=== PATIENT | female | born 1965 | race Caucasian/White ===

== ENCOUNTER 2017-04-26 04:54 | Emergency (ER) | payer BC, OTHER ==
[2017-04-26] MEDS ORDERED: Sodium Chloride 0.9% 1000 ML 1,000 ML IV SCH (05:15)
--- NOTE | 2017-04-26 05:22 | ERPHSYRPT ---
- History of Present Illness Time Seen by Provider: 04/26/17 05:06 Source: patient Exam Limitations: no limitations Patient Subjective Stated Complaint: Pt C/O left sided facial numbness radiating down the left arm with chest discomfort. Pt describes as feeling her heart is beating out of her chest. Pt rates pain 5/10. Describes as aching pain in left chest non-radiating. Pt sts shortness of breath with pain. Sts diaphoresis and vomiting x 1. Pt states nausea. Pt sts hx of palpitations. Denies prior LA. Denies prior CVA. Sts discomfort woke her up. Sts dizzy spells earlier this week. Triage Nursing Assessment: Pt alert, however drowsy in appearance. Answers questions appropriately. Skin p/w/d, resps non-labroed. SPO2 100% room air. EKG Sinus Rhythm at triage. Physician History: This is a 51-year-old white female with history of palpitations She arrives with complaint of waking up with left sided facial and head numbness and numbness of her left hand symptoms since 3:00 patient has not had movement disorder. States she began having a sensation of numbness on the left side of her face and head she has not had any problems speaking she states so that she also had pain in her anterior chest described as sharpness associated with shortness of breath and nausea. Past medical history includes palpitations, migraines, check gastroesophageal reflux. Past surgical history includes orthopedic surgery, heart catheter, cholecystectomy. Social history patient denies tobacco alcohol or illicit drug use Timing/Duration: today (3 AM) Severity: moderate Modifying Factors: Improves With: nothing Associated Symptoms: nausea, vomiting, shortness of breath, chest pain, other ( paresthesia left side of face and head and left arm), No abdominal pain, No heartburn, No diaphoresis, No cough, No chills, No fever, No headaches, No loss of appetite, No malaise, No rash, No syncope, No seizure, No weakness Allergies/Adverse Reactions: tetracycline [Tetracycline] Allergy (Unknown, Verified 04/26/17 05:04) Home Medications: PANTOPRAZOLE 40 mg Tablet [Protonix 40MG Tablet] 40 mg PO DAILY 03/02/12 [ History] Topiramate 50 mg PO DAILY 03/02/12 [History] Ranolazine [Ranexa] 1,000 mg PO DAILY 04/26/17 [History] Hx Tetanus, Diphtheria Vaccination/Date Given: (unknown) Hx Influenza Vaccination/Date Given: No Hx Pneumococcal Vaccination/Date Given: No Immunizations Up to Date: Yes - Review of Systems Constitutional: No Fever, No Chills Eyes: No Symptoms Ears, Nose, & Throat: No Symptoms Respiratory: No Cough, No Dyspnea Cardiac: Chest Pain, No Edema, No Palpitations, No Syncope, No Orthopnea, No PND Abdominal/Gastrointestinal: Nausea, Vomiting, No Abdominal Pain, No Diarrhea, No Constipation, No Hematemesis, No Hematochezia, No Melena, No Dysphagia, No Appetite Changes Genitourinary Symptoms: No Dysuria Musculoskeletal: No Back Pain, No Neck Pain Skin: No Rash Neurological: Parasthesia, No Dizziness, No Focal Weakness, No Gait Changes, No Headache, No Irritability, No Lethargy, No Paralysis, No Seizure, No Sensory Changes, No Speech Changes, No Tics, No Tremors, No Vertigo Psychological: No Symptoms Endocrine: No Symptoms All Other Systems: Reviewed and Negative - Past Medical History Pertinent Past Medical History: Yes Neurological History: Migraines ENT History: No Pertinent History Cardiac History: Hypertension, Other Respiratory History: No Pertinent History Endocrine Medical History: No Pertinent History Musculoskeletal History: No Pertinent History GI Medical History: GERD, Gallbladder Disease History: No Pertinent History Psycho-Social History: No Pertinent History Female Reproductive Disorders: No Pertinent History Other Medical History: bottom 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 - Past Surgical History Past Surgical History: Yes Neuro Surgical History: No Pertinent History Cardiac: Cardiac Catheterization Respiratory: No Pertinent History Gastrointestinal: Cholecystectomy Genitourinary: No Pertinent History Musculoskeletal: No Pertinent History Female Surgical History: No Pertinent History Other Surgical History: tempal artery biopsy - Social History Smoking Status: Never smoker Exposure to second hand smoke: No Drug Use: none Patient Lives Alone: No - Female History Hx Last Menstrual Period: post-menopausal - Nursing Vital Signs Nursing Vital Signs: Initial Vital Signs Temperature 98.1 F Temperature Source Oral Pulse Rate 75 Respiratory Rate 16 Blood Pressure [] 157/93 Pain Intensity 4 - Physical Exam General Appearance: other (well-developed obese white female some what [place] in a quiet voice,with full range of motion.) Eye Exam: PERRL/EOMI, eyes nml inspection, other (fundi are unremarkable) Ears, Nose, Throat Exam: normal ENT inspection, TMs normal, pharynx normal, moist mucous membranes Neck Exam: normal inspection, non-tender, supple, full range of motion Respiratory Exam: normal breath sounds, lungs clear, No respiratory distress Cardiovascular Exam: regular rate/rhythm, normal heart sounds, normal peripheral pulses Gastrointestinal/Abdomen Exam: soft, normal bowel sounds, No tenderness, No mass Back Exam: normal inspection, normal range of motion, No CVA tenderness, No vertebral tenderness Extremity Exam: normal inspection, normal range of motion, pelvis stable Neurologic Exam: alert, oriented x 3, cooperative, normal mood/affect, nml cerebellar function, nml station & gait, sensation nml, No motor deficits Skin Exam: normal color, warm, dry, No rash Lymphatic Exam: No adenopathy SpO2 Interpretation: normal (100%) SpO2: 100 Oxygen Delivery: Room Air - Course Nursing assessment & vital signs reviewed: Yes EKG Interpreted by Me: RATE (78 bpm), Sinus Rhythm, Other (EKG: Sinus rhythm, 78 bpm, axisS<I/QIII pattern no acute ST or T wave changes essentially normal EKG) - Radiology Exams Chest X-ray Interpretation: Interpreted by me, Negative, No Pneumonia, No Pneumothorax - CT Exams Head CT Interpretation: Tele-radiologist Report (head CT: No evidence of an acute intracral abnormality. 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 Care 04/26/17 05:59 Active IV Insertion STAT Care 04/26/17 05:11 Active CHEST 1 VIEW (PORTABLE) Stat Exams 04/26/17 05:11 Taken HEAD WITHOUT CONTRAST [CT] Stat Exams 04/26/17 05:13 Taken CBC W DIFF Stat Lab 04/26/17 05:30 Completed CMP Stat Lab 04/26/17 05:30 Completed D-DIMER QUANTITATION Stat Lab 04/26/17 05:30 Completed Manual Differential NC Stat Lab 04/26/17 05:30 Completed PROTIME WITH INR Stat Lab 04/26/17 05:30 Completed PTT Stat Lab 04/26/17 05:30 Completed TROPONIN Q3H Lab 04/26/17 05:30 Completed TROPONIN Q3H Lab 04/26/17 08:15 Ordered TROPONIN Q3H Lab 04/26/17 11:15 Ordered TROPONIN Q3H Lab 04/26/17 14:15 Ordered TROPONIN Q3H Lab 04/26/17 17:15 Ordered Medication Summary Generic Name Dose Route Start Last Admin Trade Name Janes PRN Reason Stop Dose Admin Sodium Chloride 1,000 mls @ 50 mls/hr 04/26/17 05:15 04/26/17 05:50 Sodium Chloride 0.9% 1000 Ml IV 05/26/17 05:14 50 mls/hr .Q20H JOHANNE Administration Discontinued Medications Generic Name Dose Route Start Last Admin Trade Name Urbanq PRN Reason Stop Dose Admin Aspirin 162 mg 04/26/17 06:54 04/26/17 06:57 Baby Aspirin 81 Mg Chew PO 04/26/17 06:55 162 mg STAT ONE Administration Lab/Rad Data: Laboratory Result Diagrams 04/26/17 05:30 04/26/17 05:30 Laboratory Results 04/26/17 04/26/17 04/26/17 Range/Units 05:30 05:30 05:30 WBC (4.0-10.5) K/mm3 RBC (4.1-5.4) M/mm3 Hgb (12.0-16.0) gm/dl Hct (35-47) % MCV (78-100) fl MCH (26-32) pg MCHC (32-36) g/dl RDW (11.5-14.0) % Plt Count (150-450) K/mm3 MPV (6-9.5) fl Segmented Neutrophils (36.0-66.0) % Lymphocytes (Manual) (24-44) % Monocytes (Manual) (0.0-12.0) % Eosinophils (Manual) (0.00-3.0) % Differential Comment Platelet Estimate (NORMAL) INR 0.98 (0.8-3.0) APTT 33.2 (25.3-37.0) SECONDS D-Dimer 567 H* (0-500) ng/mL Sodium 141 (136-145) mEq/L Potassium 3.2 L (3.5-5.1) mEq/L Chloride 104 (98-107) mEq/L Carbon Dioxide 25.3 (21-32) mEq/L Anion Gap 15.3 H (5-15) MEQ/L BUN 13 (9-20) mg/dL Creatinine 0.79 (0.55-1.30) mg/dl Estimated GFR > 60 ML/MIN Glucose 91 (70-110) MG/DL Calcium 9.4 (8.5-10.1) mg/dL Total Bilirubin 0.20 (0.2-1.0) mg/dL AST 25 (15-37) U/L ALT 28 (12-78) U/L Alkaline Phosphatase 90 (46-116) U/L Troponin I < 0.017 (0.000-0.056) ng/ml Serum Total Protein 7.8 (6.4-8.2) gm/dL Albumin 3.6 (3.4-5.0) g/dL 04/26/17 Range/Units 05:30 WBC 6.1 (4.0-10.5) K/mm3 RBC 4.40 (4.1-5.4) M/mm3 Hgb 13.4 (12.0-16.0) gm/dl Hct 40.3 (35-47) % MCV 91.6 (78-100) fl MCH 30.5 (26-32) pg MCHC 33.3 (32-36) g/dl RDW 13.2 (11.5-14.0) % Plt Count 262 (150-450) K/mm3 MPV 11.8 H (6-9.5) fl Segmented Neutrophils 58 (36.0-66.0) % Lymphocytes (Manual) 33 (24-44) % Monocytes (Manual) 7 (0.0-12.0) % Eosinophils (Manual) 2 (0.00-3.0) % Differential Comment NORMAL Platelet Estimate NORMAL (NORMAL) INR (0.8-3.0) APTT (25.3-37.0) SECONDS D-Dimer (0-500) ng/mL Sodium (136-145) mEq/L Potassium (3.5-5.1) mEq/L Chloride (98-107) mEq/L Carbon Dioxide (21-32) mEq/L Anion Gap (5-15) MEQ/L BUN (9-20) mg/dL Creatinine (0.55-1.30) mg/dl Estimated GFR ML/MIN Glucose (70-110) MG/DL Calcium (8.5-10.1) mg/dL Total Bilirubin (0.2-1.0) mg/dL AST (15-37) U/L ALT (12-78) U/L Alkaline Phosphatase (46-116) U/L Troponin I (0.000-0.056) ng/ml Serum Total Protein (6.4-8.2) gm/dL Albumin (3.4-5.0) g/dL - Progress Progress: improved Progress Note: 04/26/17 05:18 This is a 51-year-old white female with history of palpitations in the past she arrives with complaints of a paresthesia to the left side of the face left side of the head left arm symptoms since 3:00 associated with pain in her anterior chest which she describes as sharp she states she was short of breath. On physical examination patient speaks in a very slow weak sounding voice I do not see any obvious facial drooping she looks around the room but however when I asked her to open her eyes she opens some partially for me to of do a funduscopic exam she is able to wrinkle or for head show me her teeth stick her tongue out without any problems she moves her head from [id number] without problems Heart is regular rate and rhythm without murmur abdomen soft nontender nondistended positive bowel sounds lungs are clear and equal. Extremities patient when asked to demonstrate what side of her face is she reaches up easily with her left hand and rubs along side of her face and head however when I asked her to do finger to nose she brings up her left arm very slowly until I reminded her that she was just was able to touch her head and that she is able to complete the finger to nose with both hands. There are full range of motion to both feet She has very weak attempted gripping. Pulses are equal symmetrical 2/4 upper and lower extremities. Patient is alert oriented 3 cranial nerves II through XII are intact DTRs symmetrical equal 2 over 4. Very weak effort at movement as described above. Skin patient does appear to be somewhat pale. Will go ahead and obtain CT of the head, CBC CMP EKG troponin PT PTT d-dimer chest x-ray. 04/26/17 05:[address]: No evidence of acute intracranial abnormality, no significant change compared to prior examination. 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 Will have nurse is due NIH stroke scale Will wait on aspirin at this time. 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 I have pulled out a call to [facility] unfortunately their neurologist is not available at this time. I contacted Dr. Lorenzana at [facility] discussed the patient's case with him and he he has excepted the patient for transfer. Will go ahead and give patient aspirin 162 mg orally It is felt that the patient has an inconsistent examination he she does need to have evaluation by a neurologist Will transfer [facility]. - Departure Time of Disposition: 06:56 Departure Disposition: Transfer ([facility] Dr Lorenzana) Clinical Impression: Left arm weakness, parasthesia face, left arm Chest pain Qualifiers: Chest pain type: unspecified Qualified Code(s): R07.9 - Chest pain, unspecified Condition: Fair Critical Care Time: No Referrals: BRIANNA MANNING [Primary Care Provider] -
[2017-04-26 05:40] LABS: Mean Cell Volume 91.6 fl (78-100); Mean Corpuscular Hemoglobin 30.5 pg (26-32); Mean Platelet Volume 11.8 fl (6-9.5); Platelet Count 262 K/mm3 (150-450); Red Cell Distribution Width 13.2 % (11.5-14.0); White Blood Count 6.1 K/mm3 (4.0-10.5)
[2017-04-26] MEDS ORDERED: Sodium Chloride 0.9% 1000 ML 1,000 ML ONE (05:49)
[2017-04-26 05:56] LABS: INR 0.98 (0.8-3.0); PROTIME 11.1 SECONDS (9.95-12.35)
[2017-04-26 05:59] LABS: PTT 33.2 SECONDS (25.3-37.0)
[2017-04-26 06:12] LABS: ALBUMIN 3.6 g/dL (3.4-5.0); ALKALINE PHOSPHATASE 90 U/L (46-116); ANION GAP 15.3 MEQ/L (5-15); BLOOD UREA NITROGEN 13 mg/dL (9-20); CHLORIDE 104 mEq/L (98-107); Carbon Dioxide 25.3 mEq/L (21-32); Glucose 91 MG/DL (70-110); Potassium 3.2 mEq/L (3.5-5.1); SGOT/AST 25 U/L (15-37); SGPT/ALT 28 U/L (12-78); SODIUM 141 mEq/L (136-145); Total Protein 7.8 gm/dL (6.4-8.2)
[2017-04-26 06:37] LABS: Eosinophil 2 % (0.00-3.0); Platelet Estimate NORMAL (NORMAL); Total Cells Counted 100
[2017-04-26] MEDS ORDERED: BABY ASPIRIN 81 MG CHEW PO ONE (06:54)
[2017-04-26] MEDS ORDERED: BABY ASPIRIN 81 MG CHEW ONE (06:57)
[2017-04-26 08:39] VITALS: BP 142/72; PULSE 75
[2017-04-26 09:07] VITALS: O2SAT 94
--- NOTE | 2017-04-26 09:14 | XRAY ---
Indication: Left-sided numbness. Chest pain. Comparison: July 09, 2009. Portable chest again demonstrates normal heart and lungs. Bony thorax intact again with mild degenerative changes.
--- NOTE | 2017-04-26 09:14 | XRAY ---
Indication: Left facial and hand numbness. Multiple contiguous axial images obtained through the head without contrast. Comparison: May 09, 2009. Again normal appearing brain parenchyma, ventricles, and bony calvarium. Visualized paranasal sinuses and mastoid air cells are clear. Impression: Stable normal CT head without contrast exam. Comment: Preliminary interpretation was made by [facility]. No discrepancy. CT DI 65.91
== END 2017-04-26 09:00 | disposition short-term general hospital (02) ==
LOC: ED 04:54
DX: R07.89 Other chest pain (principal); R29.898 Other symptoms and signs involving the musculoskeletal system; G51.0 Bell's palsy; R11.2 Nausea with vomiting, unspecified; R06.02 Shortness of breath
CPT/HCPCS: 36000; 36415; 70450; 71010; 80053; 82962; 84484; 85025; 85379; 85610; 85730; 93041; 96360; 96361; 99285; A9270-GY

== ENCOUNTER 2019-04-14 09:58 | Emergency (ER) | payer BC, OTHER ==
[2019-04-14 10:17] VITALS: BP 136/77; PULSE 78; O2SAT 99
[2019-04-14] MEDS ORDERED: TYLENOL 325 MG PO STA (10:40)
--- NOTE | 2019-04-14 10:47 | ERPHSYRPT ---
- History of Present Illness Time Seen by Provider: 04/14/19 10:15 Source: patient Patient Subjective Stated Complaint: Pt was working at [employer] and a stack of plastic lids fell on top of her head causing dizziness, headache, nauseous, denies vomiting, denies losing consciousness, rates pain 6/10 Triage Nursing Assessment: Pt walked into the ER with an unstable gait, no difficulties with strength, PERRL, vitals wnl, no bump felt on head, no bleeding , pulses normal Physician History: PATIENT WITH A HISTORY OF MIGRAINE HEADACHES WORKING AT [employer], PULLED 20-30 POUND PLASTIC LIDS ONTO HEAD AND FEELS DIZZY, HAS HEADACHE AND NECK SORENESS. ADMITS TO FEELING LIKE PASSING OUT. DENIES BLURRED VISION, NUMBNESS, TINGLING OR WEAKNESS IN EXTREMITIES. Occurred: just prior to arrival Severity: moderate Head Injury Location: frontal Method of Injury: direct blow Loss of Consciousness: dazed Associated Symptoms: headaches Allergies/Adverse Reactions: tetracycline [Tetracycline] Allergy (Unknown, Verified 04/14/19 10:17) Home Medications: PANTOPRAZOLE 40 mg Tablet [Protonix 40MG Tablet] 40 mg PO DAILY 03/02/12 [ History] Topiramate 50 mg PO DAILY 03/02/12 [History] Pravastatin Sodium [Pravachol] 20 mg PO DAILY 04/14/19 [History] Hx Tetanus, Diphtheria Vaccination/Date Given: (unknown) Hx Influenza Vaccination/Date Given: No Hx Pneumococcal Vaccination/Date Given: No - Review of Systems Constitutional: No Fever, No Chills Eyes: No Symptoms Ears, Nose, & Throat: No Symptoms Respiratory: No Symptoms, No Cough, No Dyspnea Cardiac: No Symptoms, No Chest Pain, No Edema, No Syncope Abdominal/Gastrointestinal: No Symptoms, No Abdominal Pain, No Nausea, No Vomiting, No Diarrhea Genitourinary Symptoms: No Symptoms, No Dysuria Musculoskeletal: No Symptoms, No Back Pain, No Neck Pain Skin: No Rash Neurological: Headache, No Dizziness, No Focal Weakness, No Sensory Changes Psychological: No Symptoms Endocrine: No Symptoms All Other Systems: Reviewed and Negative - Past Medical History Pertinent Past Medical History: Yes Neurological History: Migraines ENT History: No Pertinent History Cardiac History: Hypertension, Other Respiratory History: No Pertinent History Endocrine Medical History: No Pertinent History Musculoskeletal History: No Pertinent History GI Medical History: GERD, Gallbladder Disease History: No Pertinent History Psycho-Social History: No Pertinent History Female Reproductive Disorders: No Pertinent History Other Medical History: bottom 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 - Past Surgical History Past Surgical History: Yes Neuro Surgical History: No Pertinent History Cardiac: Cardiac Catheterization Respiratory: No Pertinent History Gastrointestinal: Cholecystectomy Genitourinary: No Pertinent History Musculoskeletal: No Pertinent History Female Surgical History: No Pertinent History Other Surgical History: tempal artery biopsy - Social History Smoking Status: Never smoker Exposure to second hand smoke: Yes Drug Use: none Patient Lives Alone: No - Female History Hx Now: No - Nursing Vital Signs Nursing Vital Signs: Initial Vital Signs Temperature 97.8 F 04/14/19 10:07 Pulse Rate 78 04/14/19 10:07 Blood Pressure 136/77 04/14/19 10:07 O2 Sat by Pulse Oximetry 99 04/14/19 10:07 Pain Scale Pain Intensity 6 - [place] Coma Score Best Eye Response (Lenard): (4) open spontaneously Best Verbal Response (Lenard): (5) oriented Best Motor Response (Lenard): (6) obeys commands [place]ard Total: 15 - Physical Exam General Appearance: no apparent distress, alert Head Injury: tenderness (OVER MID ANTERIOR SCALP, NO SWELLING, CREPITUS OR ECCHYMOSIS) Eye Exam: bilateral eye: PERRL, EOMI ENT Exam: airway nml Neck Exam: supple, full range of motion, normal inspection, other (TENDERNESS OVER ) Cardiovascular/Respiratory Exam: chest non-tender, normal breath sounds, regular rate/rhythm Gastrointestinal/Abdominal Exam: soft, non tender, no distention Back Exam: normal inspection, No vertebral tenderness Extremity Exam: non-tender, normal range of motion, normal inspection Mental Status Exam: alert, oriented x 3, 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: normal hearing, normal speech, PERRL Coordination/Gait Exam: normal finger to nose, normal gait Motor/Sensory Exam: no motor deficit, no sensory deficit, CN II-XII intact DTR Exam: bicep (R): 2+, bicep (L): 2+, tricep (R): 2+, tricep (L): 2+, knee (R) : 2+, knee (L): 2+, ankle (R): 2+, ankle (L): 2+ Skin Exam: normal color, warm, dry, No rash SpO2 Interpretation: normal SpO2: 99 - CT Exams Head CT Interpretation: Discussed w/radiologist, No/Intracranial Hemorrhag Cervical Spine CT Interpretation: Discussed w/radiologist, No Fracture, No Subluxation Ordered Tests: Active Orders 24 hr Category Date Time Status CERVICAL SPINE WO CONTRAST [CT] Stat Exams 04/14/19 10:35 Completed HEAD WITHOUT CONTRAST [CT] Stat Exams 04/14/19 10:33 Completed Medication Summary Discontinued Medications Generic Name Dose Route Start Last Admin Trade Name Urbanq PRN Reason Stop Dose Admin Acetaminophen 650 mg 04/14/19 10:40 04/14/19 11:03 Tylenol 325 Mg PO 04/14/19 10:41 650 mg STAT STA Administration Acetaminophen Confirm 04/14/19 10:49 Tylenol 325 Mg Administered 04/14/19 10:50 Dose 650 mg .ROUTE .[employer]MED ONE - Progress Counseled pt/family regarding: diagnosis, need for follow-up, rad results - Departure Departure Disposition: Home Clinical Impression: SCALP CONTUSION, CONCUSSION Condition: Stable Critical Care Time: No Referrals: NO PHAM MD [Primary Care Provider] - Additional Instructions: REDUCE ACTIVITY LEVEL. RETURN TO WORK ON 04/16/2019. FOLLOW HEAD INJURY INSTRUCTIONS FOR 24 HOURS. TYLENOL EVERY 4 HOURS FOR PAIN NEEDED.
[2019-04-14] MEDS ORDERED: TYLENOL 325 MG ONE (10:49)
--- NOTE | 2019-04-14 11:12 | XRAY ---
Indication: Pain following injury. Multiple contiguous axial images obtained through the head without contrast. Comparison: April 26, 2017. Again normal appearing brain parenchyma, ventricles, and bony calvarium. Visualized paranasal sinuses and mastoid air cells are clear. Impression: Stable normal CT head without contrast exam. CT DI 68.65
--- NOTE | 2019-04-14 11:14 | XRAY ---
Indication: Neck pain following injury. Multiple contiguous axial images obtained through the cervical spine. Sagittal and coronal reformatted images obtained. Comparison: None Axial images negative for acute fracture, suspicious bony lesions, or spinal canal stenosis. Mild C6-C7 and lesser degree C5-C6 degenerative endplate spurring. Mild left C2-C3 degenerative facet hypertrophy. Sagittal and coronal reformatted images demonstrates cervical lordotic straightening, positional versus paraspinal spasm. Minimal C6-C7 disc space narrowing. No acute compression fracture, subluxation, or jumped facet. Normal appearing craniocervical junction. Visualized noncontrasted soft tissues including lung apices unremarkable. Impression: 1. Cervical lordotic straightening, positional versus paraspinal spasm. Negative for acute fracture/subluxation. 2. Minimal/mild multilevel degenerative changes. CT DI 70.95
== END 2019-04-14 11:33 | disposition home or self-care (01) ==
LOC: ED 09:58
DX: S00.03XA Contusion of scalp, initial encounter (principal); S06.0X9A Concussion with loss of consciousness of unspecified duration, initial encounter; R42 Dizziness and giddiness; W20.8XXA Other cause of strike by thrown, projected or falling object, initial encounter; Y93.89 Activity, other specified; Y92.29 Other specified public building as the place of occurrence of the external cause; Y99.0 Civilian activity done for income or pay; M54.2 Cervicalgia; R51 Headache
CPT/HCPCS: 70450; 72125; 99283; A9270-GY

== ENCOUNTER 2019-09-27 06:15 | Day surgery (SDC) | payer BC ==
[2019-09-27] MEDS ORDERED: Lactated Ringers 1,000 ML IV SCH (06:30)
[2019-09-27] MEDS ORDERED: DIPRIVAN 200 MG/20 ML IV ONE ×2 (08:01→08:15)
[2019-09-27] MEDS ORDERED: SUBLIMAZE 100 MCG/2 ML ONE (08:17)
[2019-09-27] MEDS ORDERED: Lactated Ringers 1,000 ML IV ONE (08:25)
--- NOTE | 2019-09-27 08:51 | OP ---
SURGERY DATE/TIME: 09/27/2019 0800 PREOPERATIVE DIAGNOSIS: Screening colonoscopy. POSTOPERATIVE DIAGNOSES: 1) Normal colon. 2) Sigmoid diverticulosis. PROCEDURE: Colonoscopy. SURGEON: Blue Garner M.D. ANESTHESIA: MAC by Clarence Geronimo CRNA. ESTIMATED BLOOD LOSS: None. SPECIMENS: None. DESCRIPTION OF PROCEDURE: After informed written consent was obtained, the patient was taken to the endoscopy suite. She underwent monitored anesthesia after she was placed in left lateral decubitus position. A digital rectal exam showed normal sphincter tone and no internal lesions. The scope was inserted into the rectum and sequentially the entire colonic mucosa was traversed. The level of cecum was reached and verified with direct visualization of ileocecal valve. Upon withdrawal careful mucosal inspection revealed no gross abnormalities other than again scattered diverticulosis mostly in the sigmoid region. Prior to withdrawal retroflexion was performed and showed no internal lesions. The scope was removed and the patient was transferred to the recovery room in good condition.
[2019-09-27 09:11] VITALS: O2SAT 98
[2019-09-27 09:28] VITALS: BP 131/63; PULSE 79
== END 2019-09-27 09:35 | disposition home or self-care (01) ==
LOC: SDC 06:15
PROVIDERS: ATTEND Family Medicine
DX: Z12.11 Encounter for screening for malignant neoplasm of colon (principal); K57.30 Diverticulosis of large intestine without perforation or abscess without bleeding
CPT/HCPCS: J2704; J3010

== ENCOUNTER 2020-10-14 20:48 | Emergency (ER) | payer OTHER ==
[2020-10-14] MEDS ORDERED: Nitrostat 0.4 MG Tablet SL PRN (21:03)
[2020-10-14] MEDS ORDERED: Nitrostat 0.4 MG (ED) SL ONE (21:04)
[2020-10-14 21:36] LABS: Absolute Neutrophil Ct (ANC) 2.64 (1.4-6.9); BASOPHIL % 0.5 % (0.0-0.4); Basophil (Absolute #) 0.03 (0-0.4); Eosinophil % 3.9 % (0.00-5.0); Eosinophil (Absolute #) 0.24 (0-0.5); Hematocrit 40.7 % (35-47); Lymphocytes % 37.3 % (24.0-44.0); Mean Cell Volume 94.4 fl (78-100); Mean Corpuscular Hemoglobin 30.2 pg (26-32); Mean Corpuscular Hgb Concent. 31.9 g/dl (32-36); Mean Platelet Volume 11.9 fl (7.5-11.0); Monocyte (Absolute #) 0.95 (0.0-1.3); Monocytes % 15.4 % (0.0-12.0); Neutrophil % 42.9 % (36.0-66.0); Platelet Count 288 K/mm3 (150-450); Red Blood Count 4.31 M/mm3 (4.1-5.4); Red Cell Distribution Width 13.5 % (11.5-14.0); White Blood Count 6.2 K/mm3 (4.0-10.5)
[2020-10-14 21:48] LABS: ALBUMIN 4.2 g/dL (3.5-5.0); ALKALINE PHOSPHATASE 89 U/L (38-126); ANION GAP 10.5 MEQ/L (5-15); BLOOD UREA NITROGEN 17 mg/dL (7-17); CHLORIDE 107 mmol/L (98-107); Calcium 9.3 mg/dL (8.4-10.2); Carbon Dioxide 25 mmol/L (22-30); Creatinine 1 0.73 mg/dL (0.52-1.04); EST GLOMERULAR FILTRATION RATE > 60.0 ML/MIN; Glucose 108 mg/dL (74-106); MAGNESIUM 2.5 mg/dL (1.6-2.3); Potassium 3.8 mmol/L (3.5-5.1); SGOT/AST 37 U/L (14-36); SGPT/ALT 30 U/L (0-35); SODIUM 138 mmol/L (137-145); Total Protein 7.9 g/dL (6.3-8.2)
--- NOTE | 2020-10-14 21:48 | ERPHSYRPT ---
- History of Present Illness Historian: patient Exam Limitations: no limitations Patient Subjective Stated Complaint: pt states that she was at [facility] when she began to have chest pain, pt states that pain in her chest, left side of her neck, and left arm, pt states that she had pain and numbness yesterday in her left neck and head Triage Nursing Assessment: pt came into the er; pt is axo x4; c/o chest pain; pt states that pain radiates from chest to left side of neck and left shoulder; pt states 6/10 pain to chest; pt states pain in chest is sharp; pt states that she took 4 81 mg aspirin prior to arrival; apical tone clear; radial pulses is strong; strong pedal pulses; no edema present; clear lung sounds in all lobes; hypoactive bowel sounds; hx of HTN and high cholesterol; hypertensive Physician History: 55 yo wf w L sternal chest pain w radiation to LUE beginning at 16:00. Pain 8/10 at worst and 2/10 after 1SL NTG. Pain is described as sharp-dull. She has been nauseated but denies vomiting /dyspnea/diaphoresis. She took 4 81mg ASA before arrival. Pt states that she has had a cardiac cath x2 in the remote past wo sig disease. She has hypertension/hyperlipidemia but denies tobacco use/DM. Timing/Duration: other (16:00) Activities at Onset: rest Quality: dullness, sharpness Location: substernal Chest Pain Radiation: arm Severity of Pain-Max: severe Severity of Pain-Current: moderate Modifying Factors: Improves With: nitroglycerin Associated Symptoms: nausea, No vomiting, No palpitations, No heartburn, No abdominal pain, No shortness of breath, No cough, No hurts to breathe, No diaphoresis, No chills, No fever, No fatigue, No weakness, No swelling/lump in chest, No syncope, No rash, No headache, No dizziness, No edema, No back pain Prior Chest Pain/Cardiac Workup: cardiac cath Nitro Today/Relief: no nitro taken today Aspirin Treatment Today: 81 mg x 4 Allergies/Adverse Reactions: tetracycline [Tetracycline] Allergy (Mild, Verified 10/14/20 20:50) Itching Home Medications: PANTOPRAZOLE 40 mg Tablet [Protonix 40MG Tablet] 40 mg PO DAILY 03/02/12 [History] Pravastatin Sodium [Pravachol] 20 mg PO DAILY 04/14/19 [History] Aspirin EC 81 mg [Ecotrin 81 mg] 1 tab PO DAILY 09/25/19 [History] Lisinopril 5 mg [Zestril 5 MG] 1 tab PO DAILY 09/25/19 [History] Albuterol Sulfate [Proair Hfa] 8.5 gm IH Q4H PRN 10/14/20 [History] Hx Tetanus, Diphtheria Vaccination/Date Given: Yes Hx Influenza Vaccination/Date Given: No Hx Pneumococcal Vaccination/Date Given: No Travel Risk - International Travel Have you traveled outside of the country in past 3 weeks: No - Coronavirus Screening Are you exhibiting any of the following symptoms?: No Close contact with a COVID-19 positive Pt in past 14-21 Days: No - Review of Systems Constitutional: No Symptoms Eyes: No Symptoms Ears, Nose, & Throat: No Symptoms Respiratory: No Symptoms Cardiac: Chest Pain Abdominal/Gastrointestinal: No Symptoms, Nausea Genitourinary Symptoms: No Symptoms Musculoskeletal: No Symptoms Skin: No Symptoms Neurological: No Symptoms Psychological: No Symptoms Endocrine: No Symptoms Hematologic/Lymphatic: No Symptoms Immunological/Allergic: No Symptoms - Past Medical History Pertinent Past Medical History: Yes Neurological History: No Pertinent History ENT History: No Pertinent History Cardiac History: High Cholesterol, Hypertension, Other Respiratory History: No Pertinent History Endocrine Medical History: No Pertinent History Musculoskeletal History: No Pertinent History GI Medical History: GERD, Other History: No Pertinent History Psycho-Social History: No Pertinent History Female Reproductive Disorders: No Pertinent History Other Medical History: Heart palpitations, liver problems, uses inhalers - Past Surgical History Past Surgical History: Yes Neuro Surgical History: No Pertinent History Cardiac: No Pertinent History Respiratory: No Pertinent History Gastrointestinal: Cholecystectomy Genitourinary: No Pertinent History Musculoskeletal: No Pertinent History Female Surgical History: No Pertinent History Other Surgical History: tempal artery biopsy - Social History Smoking Status: Never smoker Exposure to second hand smoke: No Drug Use: none Patient Lives Alone: Yes Significant Family History: no pertinent family hx - Nursing Vital Signs Nursing Vital Signs: Initial Vital Signs Temperature 98.7 F 10/14/20 20:52 Pulse Rate 84 10/14/20 20:52 Respiratory Rate 14 10/14/20 20:52 Blood Pressure 154/91 10/14/20 20:52 O2 Sat by Pulse Oximetry 100 10/14/20 20:52 Pain Scale Pain Intensity 0 - Physical Exam General Appearance: no apparent distress Eye Exam: PERRL/EOMI, eyes nml inspection Ears, Nose, Throat Exam: normal ENT inspection, TMs normal, pharynx normal, moist mucous membranes, tonsillar exudate Neck Exam: normal inspection, non-tender, supple, No meningismus, No mass, No Brudzinski, No Kernig's, No carotid bruit Respiratory Exam: normal breath sounds, lungs clear, airway intact, No respiratory distress Cardiovascular Exam: regular rate/rhythm, normal heart sounds, normal peripheral pulses, capillary refill <2 sec, No murmur Gastrointestinal/Abdomen Exam: soft, normal bowel sounds, No tenderness Back Exam: normal inspection, normal range of motion, No CVA tenderness Extremity Exam: normal inspection, normal range of motion Neurologic Exam: alert, oriented x 3, cooperative, physical sciences professor II-XII nml as tested, normal mood/affect, nml cerebellar function, nml station & gait, sensation nml, No motor deficits, No sensory deficit Skin Exam: normal color, warm, dry, No rash Lymphatic Exam: No adenopathy SpO2 Interpretation: normal SpO2: 98 O2 Delivery: Room Air - Course Nursing assessment & vital signs reviewed: Yes EKG Interpreted by Me: RATE (NSR/R91/low voltage-obese/normal QT-QTc/No acute ST-Twave changes) - Radiology Exams Chest X-ray Interpretation: Interpreted by me (Nothing acute) Ordered Tests: Active Orders 24 hr Category Date Time Status Wool Sacker STAT Care 10/14/20 21:02 Completed EKG-ER Only STAT Care 10/14/20 21:02 Completed IV Insertion STAT Care 10/14/20 21:02 Completed CHEST 1 VIEW (PORTABLE) Stat Exams 10/14/20 21:02 Taken CBC W DIFF Stat Lab 10/14/20 21:30 Completed CMP Stat Lab 10/14/20 21:30 Completed MAGNESIUM Stat Lab 10/14/20 21:30 Completed TROPONIN Q3H Lab 10/14/20 21:30 Completed TROPONIN Q3H Lab 10/15/20 00:01 Completed Medication Summary Discontinued Medications Generic Name Dose Route Start Last Admin Trade Name Freq PRN Reason Stop Dose Admin Nitroglycerin 0.4 mg 10/14/20 21:03 10/14/20 21:05 Nitrostat 0.4 Mg Tablet SL 11/13/20 21:02 0.4 mg Q5MIN PRN MR X 3 PRN Administration CHEST PAIN Nitroglycerin Confirm 10/14/20 21:04 Nitrostat 0.4 Mg (Ed) Administered 10/14/20 21:05 Dose 0.4 mg SL .STK-MED ONE Lab/Rad Data: Laboratory Result Diagrams 10/14/20 21:30 10/14/20 21:30 Laboratory Results 10/15/20 10/14/20 10/14/20 Range/Units 00:01 21:30 21:30 WBC (4.0-10.5) K/mm3 RBC (4.1-5.4) M/mm3 Hgb (12.0-16.0) gm/dl Hct (35-47) % MCV (78-100) fl MCH (26-32) pg MCHC (32-36) g/dl RDW (11.5-14.0) % Plt Count (150-450) K/mm3 MPV (7.5-11.0) fl Gran % (36.0-66.0) % Eos # (Auto) (0-0.5) Absolute Lymphs (auto) (1.0-4.6) Absolute Monos (auto) (0.0-1.3) Lymphocytes % (24.0-44.0) % Monocytes % (0.0-12.0) % Eosinophils % (0.00-5.0) % Basophils % (0.0-0.4) % Absolute Granulocytes (1.4-6.9) Basophils # (0-0.4) Sodium 138 (137-145) mmol/L Potassium 3.8 (3.5-5.1) mmol/L Chloride 107 (98-107) mmol/L Carbon Dioxide 25 (22-30) mmol/L Anion Gap 10.5 (5-15) MEQ/L BUN 17 (7-17) mg/dL Creatinine 0.73 (0.52-1.04) mg/dL Estimated GFR > 60.0 ML/MIN Glucose 108 H (74-106) mg/dL Calcium 9.3 (8.4-10.2) mg/dL Magnesium 2.5 H (1.6-2.3) mg/dL Total Bilirubin 0.30 (0.2-1.3) mg/dL AST 37 H (14-36) U/L ALT 30 (0-35) U/L Alkaline Phosphatase 89 (38-126) U/L Troponin I < 0.012 < 0.012 (0.000-0.034) ng/mL Serum Total Protein 7.9 (6.3-8.2) g/dL Albumin 4.2 (3.5-5.0) g/dL 10/14/20 Range/Units 21:30 WBC 6.2 (4.0-10.5) K/mm3 RBC 4.31 (4.1-5.4) M/mm3 Hgb 13.0 (12.0-16.0) gm/dl Hct 40.7 (35-47) % MCV 94.4 (78-100) fl MCH 30.2 (26-32) pg MCHC 31.9 L (32-36) g/dl RDW 13.5 (11.5-14.0) % Plt Count 288 (150-450) K/mm3 MPV 11.9 H (7.5-11.0) fl Gran % 42.9 (36.0-66.0) % Eos # (Auto) 0.24 (0-0.5) Absolute Lymphs (auto) 2.30 (1.0-4.6) Absolute Monos (auto) 0.95 (0.0-1.3) Lymphocytes % 37.3 (24.0-44.0) % Monocytes % 15.4 H (0.0-12.0) % Eosinophils % 3.9 (0.00-5.0) % Basophils % 0.5 (0.0-0.4) % Absolute Granulocytes 2.64 (1.4-6.9) Basophils # 0.03 (0-0.4) Sodium (137-145) mmol/L Potassium (3.5-5.1) mmol/L Chloride (98-107) mmol/L Carbon Dioxide (22-30) mmol/L Anion Gap (5-15) MEQ/L BUN (7-17) mg/dL Creatinine (0.52-1.04) mg/dL Estimated GFR ML/MIN Glucose (74-106) mg/dL Calcium (8.4-10.2) mg/dL Magnesium (1.6-2.3) mg/dL Total Bilirubin (0.2-1.3) mg/dL AST (14-36) U/L ALT (0-35) U/L Alkaline Phosphatase (38-126) U/L Troponin I (0.000-0.034) ng/mL Serum Total Protein (6.3-8.2) g/dL Albumin (3.5-5.0) g/dL - Progress Progress: improved Air Movement: good Progress Note: 10/15/20 00:36 Pt's pain improved w 1SL NTG to a very minimal level. 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 Counseled pt/family regarding: lab results, diagnosis, need for follow-up, rad results - Departure Departure Disposition: Home Clinical Impression: Chest pain Condition: Stable Critical Care Time: No Referrals: NO PHAM MD [Primary Care Provider] - Instructions: Chest Pain (DC) Additional Instructions: Follow up with your family MD in AM Return to ER for increasing chest pain or shortness of breath
[2020-10-15 00:45] VITALS: BP 132/56; PULSE 64
[2020-10-15 01:17] VITALS: O2SAT 98
--- NOTE | 2020-10-15 08:56 | XRAY ---
Indication: Chest pain. Comparison: April 26, 2017. Portable chest again demonstrates normal heart and lungs. Bony thorax intact again with mild degenerative changes. No new/acute findings.
== END 2020-10-15 00:58 | disposition home or self-care (01) ==
LOC: ED 20:48
DX: R07.9 Chest pain, unspecified (principal); I10 Essential (primary) hypertension; E78.5 Hyperlipidemia, unspecified; Z79.899 Other long term (current) drug therapy
CPT/HCPCS: 36000; 36415; 71045; 80053; 83735; 84484; 85025; 93005; 93041; 99284; A9270-GY

== ENCOUNTER 2021-03-14 16:48 | Emergency (ER) | payer OTHER ==
[2021-03-14 17:45] LABS: Absolute Neutrophil Ct (ANC) 3.16 (1.4-6.9); BASOPHIL % 0.8 % (0.0-0.4); Basophil (Absolute #) 0.05 (0-0.4); Eosinophil % 2.9 % (0.00-5.0); Eosinophil (Absolute #) 0.18 (0-0.5); Hematocrit 40.8 % (35-47); Lymphocyte (Absolute #) 2.06 (1.0-4.6); Mean Cell Volume 94.4 fl (78-100); Mean Corpuscular Hemoglobin 30.1 pg (26-32); Mean Corpuscular Hgb Concent. 31.9 g/dl (32-36); Mean Platelet Volume 12.1 fl (7.5-11.0); Monocyte (Absolute #) 0.79 (0.0-1.3); Monocytes % 12.7 % (0.0-12.0); Neutrophil % 50.6 % (36.0-66.0); Platelet Count 279 K/mm3 (150-450); Red Blood Count 4.32 M/mm3 (4.1-5.4); Red Cell Distribution Width 14.1 % (11.5-14.0); White Blood Count 6.2 K/mm3 (4.0-10.5)
[2021-03-14 17:57] LABS: ALBUMIN 4.1 g/dL (3.5-5.0); ALKALINE PHOSPHATASE 98 U/L (38-126); ANION GAP 12.1 MEQ/L (5-15); BLOOD UREA NITROGEN 18 mg/dL (7-17); CHLORIDE 108 mmol/L (98-107); Carbon Dioxide 23 mmol/L (22-30); Creatinine 1 0.87 mg/dL (0.52-1.04); EST GLOMERULAR FILTRATION RATE > 60.0 ML/MIN; Glucose 94 mg/dL (74-106); SGOT/AST 39 U/L (14-36); SGPT/ALT 28 U/L (0-35); SODIUM 139 mmol/L (137-145); Total Protein 7.2 g/dL (6.3-8.2)
[2021-03-14] MEDS ORDERED: Reglan 10 MG/2 ML IV ONE (17:59)
[2021-03-14] MEDS ORDERED: Sodium Chloride 0.9% 1000 ML 1,000 ML IV STA (17:59)
[2021-03-14] MEDS ORDERED: BENADRYL 50 MG/ML IV ONE (17:59)
[2021-03-14 18:01] VITALS: O2SAT 98
[2021-03-14] MEDS ORDERED: Sodium Chloride 0.9% 1000 ML 1,000 ML ONE (18:04)
[2021-03-14] MEDS ORDERED: BENADRYL 50 MG/ML ONE (18:04)
[2021-03-14] MEDS ORDERED: Reglan 10 MG/2 ML ONE (18:04)
[2021-03-14] MEDS ORDERED: TORAdol 30 mg Injection IV ONE (20:00)
--- NOTE | 2021-03-14 20:11 | ERPHSYRPT ---
- History of Present Illness Time Seen by Provider: 03/14/21 17:05 Source: patient Exam Limitations: no limitations Patient Subjective Stated Complaint: Pt states "I was fine when I went to bed last night and when I woke up this morning at 8 am the left side of my face was numb and my left shoulder was numb." Triage Nursing Assessment: Pt presented alert and oriented X 3, skin pwd Pt ambulates with an upright steady gait, able to speak in clear full sentences. pt in no apparent respiratory distress. pt resting comfortably on the bed. Physician History: 55 years old female with a history of hypertension, hyperlipidemia, GERD, complex migraine went to bed normal and woke up this morning with right facial and right upper shoulder numbness with right-sided headache moderate intensity, sharp in nature without any significant aggravating or relieving factors. Patient reports not having any difficulty speech or visual disturbance. Denies any associated nausea or vomiting. Denies any focal weakness or difficulty ambulation. Reports having similar symptoms couple of years ago and was diagnosed with complex migraine. Denies any fever chills movements of neck. Timing/Duration: today, sudden Quality: sharpness Head Pain Location: parietal Severity of Pain-Max: moderate Severity of Pain-Current: moderate Recent Head Trauma: no recent headache/trauma Associated Symptoms: speech problems, No confusion, No fatigue, No facial pain, No fever/chills, No light-headedness, No loss of consciousness, No nausea/vomiting, No nasal congestion, No nasal drainage, No neck pain, No numbness in legs/feet, No rash, No sweating, No scotoma, No seizures, No sinus infection, No sensitive to light, No stiff neck, No trouble walking, No vision changes, No visual disturbance Previous symptoms: same symptoms as today Allergies/Adverse Reactions: mushroom Allergy (Severe, Verified 03/14/21 17:03) throat swelling tetracycline [Tetracycline] Allergy (Mild, Verified 10/14/20 20:50) Itching Home Medications: PANTOPRAZOLE 40 mg Tablet [Protonix 40MG Tablet] 40 mg PO DAILY 03/02/12 [History] Pravastatin Sodium [Pravachol] 20 mg PO DAILY 04/14/19 [History] Aspirin EC 81 mg [Ecotrin 81 mg] 1 tab PO DAILY 09/25/19 [History] Lisinopril 5 mg [Zestril 5 MG] 1 tab PO DAILY 09/25/19 [History] Albuterol Sulfate [Proair Hfa] 8.5 gm IH Q4H PRN 10/14/20 [History] Metoprolol Succinate 50 mg [Toprol Xl 50 MG] 50 mg PO DAILY 03/14/21 [History] Topiramate [Topamax] 50 mg PO HS 03/14/21 [History] Hx Tetanus, Diphtheria Vaccination/Date Given: No Hx Influenza Vaccination/Date Given: No Hx Pneumococcal Vaccination/Date Given: No Immunizations Up to Date: Yes Travel Risk - International Travel Have you traveled outside of the country in past 3 weeks: No - Coronavirus Screening Are you exhibiting any of the following symptoms?: No Close contact with a COVID-19 positive Pt in past 14-21 Days: No - Vaccine Status Have you recieved a Covid-19 vaccination: Yes Fibre Technologist: Moderna - Vaccination Dates Date of 2cond Vaccination (if applicable): 02/22/2021 - Review of Systems Constitutional: No Symptoms Eyes: No Symptoms Ears, Nose, & Throat: No Symptoms Respiratory: No Symptoms Cardiac: No Symptoms Abdominal/Gastrointestinal: No Symptoms Genitourinary Symptoms: No Symptoms Musculoskeletal: No Symptoms Skin: No Symptoms Neurological: Headache, Sensory Changes Psychological: No Symptoms Endocrine: No Symptoms Hematologic/Lymphatic: No Symptoms Immunological/Allergic: No Symptoms - Past Medical History Pertinent Past Medical History: Yes Neurological History: Migraines ENT History: No Pertinent History Cardiac History: Hypertension Respiratory History: Other Endocrine Medical History: Other Musculoskeletal History: Osteoarthritis GI Medical History: GERD, Other History: No Pertinent History Psycho-Social History: No Pertinent History Female Reproductive Disorders: No Pertinent History Other Medical History: Fatty liver, proair inhaler - Past Surgical History Past Surgical History: Yes Neuro Surgical History: No Pertinent History Cardiac: No Pertinent History Respiratory: No Pertinent History Gastrointestinal: Cholecystectomy Genitourinary: No Pertinent History Musculoskeletal: No Pertinent History Female Surgical History: No Pertinent History Other Surgical History: tempal artery biopsy - Social History Smoking Status: Never smoker Exposure to second hand smoke: No Drug Use: none Patient Lives Alone: Yes Significant Family History: no pertinent family hx - Female History Hx Now: No - Nursing Vital Signs Nursing Vital Signs: Initial Vital Signs Temperature 97.8 F 03/14/21 16:52 Pulse Rate 87 03/14/21 16:52 Respiratory Rate 20 03/14/21 16:52 Blood Pressure 139/68 03/14/21 16:52 O2 Sat by Pulse Oximetry 99 03/14/21 16:52 Pain Scale Pain Intensity 0 - Physical Exam General Appearance: no apparent distress, alert Eye Exam: PERRL/EOMI, eyes nml inspection Ears, Nose, Throat Exam: normal ENT inspection, TMs normal, pharynx normal Neck Exam: normal inspection, non-tender, supple, full range of motion, No meningismus Respiratory Exam: normal breath sounds, lungs clear Cardiovascular Exam: regular rate/rhythm, normal heart sounds Gastrointestinal/Abdominal Exam: soft, normal bowel sounds, No tenderness Back Exam: normal inspection, normal range of motion Extremity Exam: normal inspection, normal range of motion, pelvis stable Mental Status Exam: alert, oriented x 3, cooperative stunt woman Exam: normal hearing, normal speech, PERRL, No abnormal eye position, No facial asymmetry, No facial weakness Coordination/Gait Exam: normal finger to nose, normal gait, normal cerebellar function, negative Romberg's sign Motor/Sensory Exam: no motor deficit, negative Babinski's sign, No no sensory deficit (Right facial decreased sensation of fine touch), No pronator drift (R), No pronator drift (L) DTR Exam: bicep (R): 2+, bicep (L): 2+, tricep (R): 2+, tricep (L): 2+, knee (R): 2+, knee (L): 2+ Skin Exam: normal color SpO2 Interpretation: normal SpO2: 98 O2 Delivery: Room Air - Course EKG Interpreted by Me: RATE (66), Sinus Rhythm, NORMAL AXIS, NORMAL INTERVALS, NORMAL QRS Ordered Tests: Active Orders 24 hr Category Date Time Status Business Applications Manager STAT Care 03/14/21 17:15 Active EKG-ER Only STAT Care 03/14/21 17:14 Active IV Insertion STAT Care 03/14/21 17:59 Active Consult Tele-Health [Tele-Health Consult] ROUTINE Cons 03/14/21 19:24 Active CHEST 1 VIEW (PORTABLE) Stat Exams 03/14/21 17:16 Taken HEAD WITHOUT CONTRAST [CT] Stat Exams 03/14/21 17:14 Taken CBC W DIFF Stat Lab 03/14/21 17:20 Completed CMP Stat Lab 03/14/21 17:20 Completed TROPONIN Q3H Lab 03/14/21 17:20 Completed TROPONIN Q3H Lab 03/14/21 21:06 Completed TROPONIN Q3H Lab 03/14/21 23:15 Ordered Medication Summary Generic Name Dose Route Start Last Admin Trade Name Janes PRN Reason Stop Dose Admin Magnesium Sulfate/Dextrose 100 mls @ 100 mls/hr 03/14/21 20:45 03/14/21 20:45 Magnesium 1 Gm / 100 Ml D5w IV 03/14/21 22:44 100 mls/hr Q1H JOHANNE Administration Discontinued Medications Generic Name Dose Route Start Last Admin Trade Name Janes PRN Reason Stop Dose Admin Aspirin 324 mg 03/14/21 20:36 03/14/21 20:45 Baby Aspirin 81 Mg Chew PO 03/14/21 20:37 324 mg STAT ONE Administration Diphenhydramine HCl 25 mg 03/14/21 17:59 03/14/21 18:14 Benadryl 50 Mg/Ml IV 03/14/21 18:00 25 mg STAT ONE Administration Diphenhydramine HCl Confirm 03/14/21 18:04 Benadryl 50 Mg/Ml Administered 03/14/21 18:05 Dose 50 mg .ROUTE .STK-MED ONE Sodium Chloride 1,000 mls @ 999 mls/hr 03/14/21 17:59 03/14/21 18:11 Sodium Chloride 0.9% 1000 Ml IV 03/14/21 18:59 999 mls/hr .Q1H1M STA Administration Sodium Chloride Confirm 03/14/21 18:04 Sodium Chloride 0.9% 1000 Ml Administered 03/14/21 18:05 Dose 1,000 mls @ ud .ROUTE .STK-MED ONE Ketorolac Tromethamine 30 mg 03/14/21 20:00 03/14/21 20:30 Toradol 30 Mg Injection IV 03/14/21 20:01 30 mg STAT ONE Administration Ketorolac Tromethamine Confirm 03/14/21 20:29 Toradol 30 Mg Injection Administered 03/14/21 20:30 Dose 30 mg .ROUTE .STK-MED ONE Metoclopramide HCl 10 mg 03/14/21 17:59 03/14/21 18:12 Reglan 10 Mg/2 Ml IV 03/14/21 18:00 10 mg STAT ONE Administration Metoclopramide HCl Confirm 03/14/21 18:04 Reglan 10 Mg/2 Ml Administered 03/14/21 18:05 Dose 10 mg .ROUTE .STK-MED ONE Lab/Rad Data: Laboratory Result Diagrams 03/14/21 17:20 03/14/21 17:20 Laboratory Results 03/14/21 03/14/21 03/14/21 Range/Units 21:06 17:20 17:20 WBC (4.0-10.5) K/mm3 RBC (4.1-5.4) M/mm3 Hgb (12.0-16.0) gm/dl Hct (35-47) % MCV (78-100) fl MCH (26-32) pg MCHC (32-36) g/dl RDW (11.5-14.0) % Plt Count (150-450) K/mm3 MPV (7.5-11.0) fl Gran % (36.0-66.0) % Eos # (Auto) (0-0.5) Absolute Lymphs (auto) (1.0-4.6) Absolute Monos (auto) (0.0-1.3) Lymphocytes % (24.0-44.0) % Monocytes % (0.0-12.0) % Eosinophils % (0.00-5.0) % Basophils % (0.0-0.4) % Absolute Granulocytes (1.4-6.9) Basophils # (0-0.4) Sodium 139 (137-145) mmol/L Potassium 4.0 (3.5-5.1) mmol/L Chloride 108 H (98-107) mmol/L Carbon Dioxide 23 (22-30) mmol/L Anion Gap 12.1 (5-15) MEQ/L BUN 18 H (7-17) mg/dL Creatinine 0.87 (0.52-1.04) mg/dL Estimated GFR > 60.0 ML/MIN Glucose 94 (74-106) mg/dL Calcium 9.0 (8.4-10.2) mg/dL Total Bilirubin 0.50 (0.2-1.3) mg/dL AST 39 H (14-36) U/L ALT 28 (0-35) U/L Alkaline Phosphatase 98 (38-126) U/L Troponin I < 0.012 < 0.012 (0.000-0.034) ng/mL Serum Total Protein 7.2 (6.3-8.2) g/dL Albumin 4.1 (3.5-5.0) g/dL 03/14/21 Range/Units 17:20 WBC 6.2 (4.0-10.5) K/mm3 RBC 4.32 (4.1-5.4) M/mm3 Hgb 13.0 (12.0-16.0) gm/dl Hct 40.8 (35-47) % MCV 94.4 (78-100) fl MCH 30.1 (26-32) pg MCHC 31.9 L (32-36) g/dl RDW 14.1 H (11.5-14.0) % Plt Count 279 (150-450) K/mm3 MPV 12.1 H (7.5-11.0) fl Gran % 50.6 (36.0-66.0) % Eos # (Auto) 0.18 (0-0.5) Absolute Lymphs (auto) 2.06 (1.0-4.6) Absolute Monos (auto) 0.79 (0.0-1.3) Lymphocytes % 33.0 (24.0-44.0) % Monocytes % 12.7 H (0.0-12.0) % Eosinophils % 2.9 (0.00-5.0) % Basophils % 0.8 (0.0-0.4) % Absolute Granulocytes 3.16 (1.4-6.9) Basophils # 0.05 (0-0.4) Sodium (137-145) mmol/L Potassium (3.5-5.1) mmol/L Chloride (98-107) mmol/L Carbon Dioxide (22-30) mmol/L Anion Gap (5-15) MEQ/L BUN (7-17) mg/dL Creatinine (0.52-1.04) mg/dL Estimated GFR ML/MIN Glucose (74-106) mg/dL Calcium (8.4-10.2) mg/dL Total Bilirubin (0.2-1.3) mg/dL AST (14-36) U/L ALT (0-35) U/L Alkaline Phosphatase (38-126) U/L Troponin I (0.000-0.034) ng/mL Serum Total Protein (6.3-8.2) g/dL Albumin (3.5-5.0) g/dL - Progress Progress: improved Air Movement: good Progress Note: 03/14/21 22:00 55 years old is evaluated for right sided headache and numbness. Patient did have similar symptoms in the past with complex migraine. No focal weakness. CT head is negative. Grossly unremarkable work-up. I have obtained [facility] neurology consult who thinks patient probably have complex migraine and recommended giving migraine cocktail. She is given Benadryl/Reglan/Toradol/magnesium, on reevaluation her headache and numbness is resolved. No weakness on repeated evaluation and nonfocal neuro exam. As per neurology recommendation if symptoms improve does not need MRI or further evaluation and patient can be discharged. I have discussed plan with the patient and she is okay with going home and would follow-up outpatient with Dr. Dejesus which is her routine neurologist. Discussed signs symptoms of worsening needing return to ER which she seems understanding. Blood Culture(s) Obtained: No Antibiotics given: No Discussed with Dr.: Other Counseled pt/family regarding: lab results, diagnosis, need for follow-up, rad results - Departure Departure Disposition: Home Clinical Impression: Migraine Qualifiers: Migraine type: other Status migrainosus presence: without status migrainosus Intractability: not intractable Qualified Code(s): G43.809 - Other migraine, not intractable, without status migrainosus Condition: Stable Critical Care Time: No Referrals: INDIRA COE [Primary Care Provider] - Follow Up with PCP/3 days LORNA FERGUSON [NON-STAFF PHY W/O PRIVILEGES] - (Call Wednesday for appointment for reevaluation.) Instructions: Migraines (DC), Paresthesias (DC) Additional Instructions: Continue with Topamax. Take Tylenol ibuprofen as needed. Follow-up with neurology for reevaluation. Return to ER for intractable headache, numbness tingling or focal weakness/visual disturbance etc.
[2021-03-14] MEDS ORDERED: TORAdol 30 mg Injection ONE (20:29)
[2021-03-14] MEDS ORDERED: BABY ASPIRIN 81 MG CHEW PO ONE (20:36)
[2021-03-14] MEDS ORDERED: Magnesium 1 Gm / 100 Ml D5W*** 100 ML IV ONE (20:41)
[2021-03-14] MEDS ORDERED: Magnesium 1 Gm / 100 Ml D5W*** 100 ML IV SCH (20:45)
[2021-03-14 22:04] VITALS: BP 98/50; PULSE 62
--- NOTE | 2021-03-14 22:11 | XRAY ---
Indication: Numbness face and extremities. Stroke symptoms. Multiple contiguous axial images obtained through the head without contrast. Comparison: October 21, 2020. Normal appearing brain parenchyma, ventricles, and bony calvarium. Visualized paranasal sinuses and mastoid air cells are clear. Impression: Continued normal CT head without contrast exam. Comment: Preliminary interpretation was made by [facility]. No critical discrepancy.
--- NOTE | 2021-03-14 22:11 | XRAY ---
Indication: Facial numbness. Stroke symptoms. Comparison: October 14, 2020. Portable chest again demonstrates normal heart and lungs. Bony thorax intact with mild degenerative changes. No new/acute findings.
== END 2021-03-14 22:20 | disposition home or self-care (01) ==
LOC: ED 16:48
DX: G43.809 Other migraine, not intractable, without status migrainosus (principal)
CPT/HCPCS: 36000; 36415; 70450; 71045; 80053; 84484; 85025; 93005; 93041; 96365; 96374; 96375; 99285; J1200; J1885; J3475; A9270-GY

== ENCOUNTER 2022-04-13 12:07 | Emergency (ER) | payer OTHER ==
[2022-04-13] MEDS ORDERED: TORAdol 30 mg Injection IM ONE (12:28)
[2022-04-13 12:31] VITALS: O2SAT 100
[2022-04-13] MEDS ORDERED: TORAdol 30 mg Injection ONE (12:45)
--- NOTE | 2022-04-13 13:11 | ERPHSYRPT ---
- History of Present Illness Time Seen by Provider: 04/13/22 12:10 Source: patient Exam Limitations: no limitations Patient Subjective Stated Complaint: Pt was walking her dog and got tangled in the leash around her feet and caused her to fall and she landed non h er left knee which is now causing pain and her leg keeps giving out Triage Nursing Assessment: Pt brought to the ER by her son, hypertensive, rates pain to her left knee as 8/10, bruising and swelling noted, reports that her leg keeps giving out, pulses normal, skin n/w/d, pt takes a baby aspirin but is not on any other blood thinners, doesn't appear to be in any distress Physician History: 56 years old morbidly obese female presented in the ER with chief complaint of left knee pain for the last 4 days after she got tangled while walking her dog and fell on her left knee.. Since then she is having moderate to severe sharp pain with ambulation and sometimes her left knee gives away. No injury anywhere else. Method of Injury: fell Occurred: last week Quality: sharpness Severity of Pain-Max: severe Severity of Pain-Current: severe Lower Extremities Pain: knee: left Modifying Factors: Improves With: immobilization. Worsens With: movement Allergies/Adverse Reactions: mushroom Allergy (Severe, Verified 04/13/22 12:31) throat swelling tetracycline [Tetracycline] Allergy (Mild, Verified 04/13/22 12:31) Itching Home Medications: PANTOPRAZOLE 40 mg Tablet [Protonix 40MG Tablet] 40 mg PO DAILY 03/02/12 [History] Pravastatin Sodium [Pravachol] 40 mg PO DAILY 04/14/19 [History] Aspirin EC 81 mg [Ecotrin 81 mg] 1 tab PO DAILY 09/25/19 [History] Lisinopril 5 mg [Zestril 5 MG] 10 mg PO DAILY 09/25/19 [History] Metoprolol Succinate 50 mg [Toprol Xl 50 MG] 50 mg PO DAILY 03/14/21 [History] Isosorbide Mononitrate [Isosorbide Mononitrate ER] 30 mg PO DAILY 04/13/22 [History] clonazePAM [Clonazepam] 0.5 mg PO BID 07/04/22 [History] Hx Tetanus, Diphtheria Vaccination/Date Given: No Hx Influenza Vaccination/Date Given: No Hx Pneumococcal Vaccination/Date Given: No Travel Risk - International Travel Have you traveled outside of the country in past 3 weeks: No - Coronavirus Screening Are you exhibiting any of the following symptoms?: No Close contact with a COVID-19 positive Pt in past 14-21 Days: No - Vaccine Status Have you recieved a Covid-19 vaccination: Yes Pmo Lead: Moderna - Vaccination Dates Date of 2cond Vaccination (if applicable): 02/22/2021 - Review of Systems Constitutional: No Symptoms Ears, Nose, & Throat: No Symptoms Respiratory: No Symptoms Cardiac: No Symptoms Abdominal/Gastrointestinal: No Symptoms Genitourinary Symptoms: No Symptoms Musculoskeletal: Arthralgias, Injury, Joint Pain, Joint Swelling Skin: No Symptoms Neurological: No Symptoms Hematologic/Lymphatic: No Symptoms Immunological/Allergic: No Symptoms - Past Medical History Pertinent Past Medical History: Yes Neurological History: Migraines ENT History: No Pertinent History Cardiac History: Hypertension Respiratory History: Other Endocrine Medical History: Other Musculoskeletal History: Osteoarthritis GI Medical History: GERD, Other History: No Pertinent History Psycho-Social History: No Pertinent History Female Reproductive Disorders: No Pertinent History Other Medical History: Fatty liver - Past Surgical History Past Surgical History: Yes Neuro Surgical History: No Pertinent History Cardiac: No Pertinent History Respiratory: No Pertinent History Gastrointestinal: Cholecystectomy Genitourinary: No Pertinent History Musculoskeletal: No Pertinent History Female Surgical History: No Pertinent History Other Surgical History: artery biopsy - Social History Smoking Status: Never smoker Exposure to second hand smoke: No Drug Use: none Patient Lives Alone: Yes Significant Family History: no pertinent family hx - Nursing Vital Signs Nursing Vital Signs: Initial Vital Signs Temperature 98.6 F 04/13/22 12:21 Pulse Rate 67 04/13/22 12:21 Blood Pressure 140/75 04/13/22 12:21 O2 Sat by Pulse Oximetry 100 04/13/22 12:21 Pain Scale Pain Intensity 8 - Physical Exam General Appearance: no apparent distress, alert Eyes, Ears, Nose, Throat Exam: normal ENT inspection Neck Exam: normal inspection, full range of motion Cardiovascular/Respiratory Exam: normal breath sounds, regular rate/rhythm Back Exam: normal inspection Hips Exam: bilateral: non-tender, normal inspection, normal range of motion, no evidence of injury Legs Exam: bilateral leg: non-tender, normal inspection, normal range of motion, no evidence of injury Knees Exam: right knee: non-tender, normal inspection, normal range of motion, no evidence of injury, left knee: bone tenderness (Anterior knee with bruising), pain, soft tissue tenderness, swelling Ankle Exam: bilateral ankle: non-tender, normal inspection, normal range of motion, no evidence of injury Neuro/Tendon Exam: normal sensation, normal motor functions, normal tendon functions Mental Status Exam: alert, oriented x 3, cooperative Skin Exam: normal color SpO2 Interpretation: normal SpO2: 100 O2 Delivery: Room Air Ordered Tests: Active Orders 24 hr Category Date Time Status KNEE (3 VIEWS) Stat Exams 04/13/22 Taken Medication Summary Discontinued Medications Generic Name Dose Route Start Last Admin Trade Name Janes PRN Reason Stop Dose Admin Ketorolac Tromethamine 30 mg 04/13/22 12:28 04/13/22 12:46 Ketorolac Tromethamine 30 Mg/Ml Inj IM 04/13/22 12:29 30 mg STAT ONE Administration Ketorolac Tromethamine Confirm 04/13/22 12:45 Ketorolac Tromethamine 30 Mg/Ml Inj Administered 04/13/22 12:46 Dose 30 mg .ROUTE .STK-MED ONE - Progress Progress: pain not gone completely, re-examined Progress Note: 04/13/22 13:37 She is given Toradol for symptomatic relief but pain is not completely resolved. She does not want any stronger pain medication/narcotics at all. Questionable lateral small bony fragment but no obvious dislocation official report is pending,. Placed in knee immobilizer, outpatient orthopedic follow-up recommended. She is offered narcotics to go home but she refused. Recommended intermittent ice application and outpatient follow-up. Counseled pt/family regarding: diagnosis, need for follow-up, rad results - Departure Departure Disposition: Home Clinical Impression: Acute knee pain Condition: Stable Critical Care Time: No Referrals: INDIRA COE [Primary Care Provider] - Follow up/PCP as directed (1-2 days for reevaluation) YOBANI - CRISTIANA HANNA NP [NON-STAFF PHY W/O PRIVILEGES] - Follow up/PCP as directed (Tomorrow for reevaluation) Instructions: Contusion (DC) Additional Instructions: Take Tylenol/ibuprofen as needed. Follow-up with primary orthopedic surgery for reevaluation tomorrow. Intermittent ice application. Weightbearing only as tolerated. Prescriptions: Ibuprofen 600 mg PO Q6HPRN PRN 10 Days #20 tablet PRN Reason: Pain
[2022-04-13 13:33] VITALS: BP 140/69; PULSE 68
--- NOTE | 2022-04-13 19:20 | XRAY ---
Indication: Pain following fall. Comparison: None 3 view left knee demonstrates mild/moderate tricompartmental degenerative changes greatest patellofemoral compartment with tiny suprapatella heterotopic ossification and tiny nonspecific effusion. Small posterior fabella. No other bony, articular, or soft tissue abnormalities.
== END 2022-04-13 13:50 | disposition home or self-care (01) ==
LOC: ED 12:07
DX: M25.562 Pain in left knee (principal); S80.02XA Contusion of left knee, initial encounter; W01.10XA Fall on same level from slipping, tripping and stumbling with subsequent striking against unspecified object, initial encounter; Y93.K1 Activity, walking an animal; I10 Essential (primary) hypertension; Z79.899 Other long term (current) drug therapy
CPT/HCPCS: 73562; 96372; 99283; J1885; L1830

== ENCOUNTER 2022-08-02 21:28 | Emergency (ER) | payer OTHER ==
[2022-08-02] MEDS ORDERED: MORPHINE SULFATE 4 MG INJ IM ONE (22:07)
[2022-08-02] MEDS ORDERED: MORPHINE SULFATE 4 MG INJ ONE (22:12)
--- NOTE | 2022-08-02 22:55 | ERPHSYRPT ---
- History of Present Illness Time Seen by Provider: 08/02/22 21:32 Source: patient Exam Limitations: no limitations Patient Subjective Stated Complaint: pain in left hip that radiates to low back since yesterday. pt states no trauma or fall, unsure why pain is present Triage Nursing Assessment: pt alert and oriented rates pain in hip and back at 8/10 Physician History: 57-year-old female with a history of chronic back pain, hypertension, hyperlipidemia, anxiety, osteoarthritis with chronic knee pain presented in the ER with chief complaint of left hip pain since yesterday without any known fall or trauma, pushing or pulling anything. Patient reports she has pain right lower back with radiation to right hip and more with ambulation/movements and partial relief with resting. She has [place] at home from her previous knee related pain and has not taken any of it. Denies any numbness tingling or weakness of lower extremity. Method of Injury: unknown Occurred: yesterday Quality: sharpness Severity of Pain-Max: severe Severity of Pain-Current: moderate Lower Extremities Pain: hip: left Modifying Factors: Improves With: immobilization. Worsens With: movement Associated Symptoms: No snapping sensation, No popping sensation Allergies/Adverse Reactions: mushroom Allergy (Severe, Verified 08/02/22 21:50) throat swelling tetracycline [Tetracycline] Allergy (Mild, Verified 08/02/22 21:50) Itching Home Medications: PANTOPRAZOLE 40 mg Tablet [Protonix 40MG Tablet] 40 mg PO DAILY 03/02/12 [History] Pravastatin Sodium [Pravachol] 40 mg PO DAILY 04/14/19 [History] Aspirin EC 81 mg [Ecotrin 81 mg] 1 tab PO DAILY 09/25/19 [History] Lisinopril 5 mg [Zestril 5 MG] 10 mg PO DAILY 09/25/19 [History] Metoprolol Succinate 50 mg [Toprol Xl 50 MG] 50 mg PO DAILY 03/14/21 [History] Isosorbide Mononitrate [Isosorbide Mononitrate ER] 30 mg PO DAILY 04/13/22 [History] clonazePAM [Clonazepam] 0.5 mg PO BID 04/13/22 [History] Hx Tetanus, Diphtheria Vaccination/Date Given: No Hx Influenza Vaccination/Date Given: No Hx Pneumococcal Vaccination/Date Given: No Travel Risk - International Travel Have you traveled outside of the country in past 3 weeks: No - Coronavirus Screening Are you exhibiting any of the following symptoms?: No Close contact with a COVID-19 positive Pt in past 14-21 Days: No - Vaccine Status Have you recieved a Covid-19 vaccination: Yes [employer]: Moderna - Vaccination Dates Date of 2cond Vaccination (if applicable): 02/22/2021 - Review of Systems Constitutional: No Symptoms Ears, Nose, & Throat: No Symptoms Respiratory: No Symptoms Cardiac: No Symptoms Genitourinary Symptoms: No Symptoms Musculoskeletal: Arthralgias, Back Pain, Joint Pain Skin: No Symptoms Neurological: No Symptoms Endocrine: No Symptoms Hematologic/Lymphatic: No Symptoms Immunological/Allergic: No Symptoms - Past Medical History Pertinent Past Medical History: Yes Neurological History: Migraines ENT History: No Pertinent History Cardiac History: Hypertension Respiratory History: Other Endocrine Medical History: Other Musculoskeletal History: Osteoarthritis GI Medical History: GERD, Other History: No Pertinent History Psycho-Social History: No Pertinent History Female Reproductive Disorders: No Pertinent History Other Medical History: Fatty liver - Past Surgical History Past Surgical History: Yes Neuro Surgical History: No Pertinent History Cardiac: No Pertinent History Respiratory: No Pertinent History Gastrointestinal: Cholecystectomy Genitourinary: No Pertinent History Musculoskeletal: No Pertinent History Female Surgical History: No Pertinent History Other Surgical History: artery biopsy - Social History Smoking Status: Never smoker Exposure to second hand smoke: No Drug Use: none Patient Lives Alone: Yes Significant Family History: no pertinent family hx - Nursing Vital Signs Nursing Vital Signs: Initial Vital Signs Temperature 97.1 F 08/02/22 21:40 Pulse Rate 70 08/02/22 21:40 Respiratory Rate 18 08/02/22 21:40 Blood Pressure 141/58 08/02/22 21:40 O2 Sat by Pulse Oximetry 98 08/02/22 21:40 Pain Scale Pain Intensity 7 - Physical Exam General Appearance: no apparent distress, alert Neck Exam: normal inspection, full range of motion Cardiovascular/Respiratory Exam: normal breath sounds, regular rate/rhythm Gastrointestinal/Abdominal Exam: non-tender, soft Back Exam: normal inspection, muscle spasm (Left sacroiliac area), No vertebral tenderness Hips Exam: right: non-tender, normal range of motion, left: bone tenderness, limited range of motion, pain, soft tissue tenderness, bilateral: normal inspection, no evidence of injury Knees Exam: bilateral knee: non-tender, normal inspection, normal range of motion, no evidence of injury Ankle Exam: bilateral ankle: non-tender, normal inspection, normal range of motion Neuro/Tendon Exam: normal sensation, normal motor functions Mental Status Exam: alert, oriented x 3, cooperative Skin Exam: normal color SpO2 Interpretation: normal SpO2: 98 O2 Delivery: Room Air Ordered Tests: Active Orders 24 hr Category Date Time Status HIP UNI (2V) INCL PEL IF DONE Stat Exams 08/02/22 22:35 Taken Medication Summary Discontinued Medications Generic Name Dose Route Start Last Admin Trade Name Janes PRN Reason Stop Dose Admin Morphine Sulfate 4 mg 08/02/22 22:07 08/02/22 22:14 Morphine Sulfate 4 Mg/Ml Injection IM 08/02/22 22:08 4 mg STAT ONE Administration Morphine Sulfate Confirm 08/02/22 22:12 Morphine Sulfate 4 Mg/Ml Injection Administered 08/02/22 22:13 Dose 4 mg .ROUTE .[employer]-MED ONE - Progress Progress: improved Progress Note: 08/02/22 22:53 She is given symptomatic treatment for pain. She has no deformity in left lower extremity. Pain is more in the left sacroiliac area. X-rays negative for acute fracture dislocation reviewed by me, official report is pending. I believe patient has low back strain with sciatica. Does have [place] at home which she is advised to start taking. Discussed signs symptoms of worsening needing return to ER which she seems understanding. Recommended using cane or walker for ambulation to avoid a fall. Counseled pt/family regarding: diagnosis, need for follow-up, rad results - Departure Departure Disposition: Home Clinical Impression: Low back pain Qualifiers: Chronicity: acute Back pain laterality: left Sciatica presence: with sciatica Sciatica laterality: sciatica of left side Qualified Code(s): M54.42 - Lumbago with sciatica, left side Condition: Stable Critical Care Time: No Referrals: INDIRA COE [Primary Care Provider] - Follow up/PCP as directed (1-2 days for reevaluation) Instructions: Low Back Pain (DC) Additional Instructions: Take pain medications as recommended. Use cane/walker for ambulation to avoid a fall. Follow-up with primary care for reevaluation. Return to ER for any worsening.
[2022-08-02 22:58] VITALS: BP 133/68; PULSE 65; O2SAT 97
--- NOTE | 2022-08-03 08:48 | XRAY ---
Indication: Pain. No known injury. Comparison: None 2 view left hip demonstrates mild osteopenia and minimal vascular calcifications. No other bony, articular, or soft tissue abnormalities.
== END 2022-08-02 22:59 | disposition home or self-care (01) ==
LOC: ED 21:28
DX: M54.42 Lumbago with sciatica, left side (principal); I10 Essential (primary) hypertension; E78.5 Hyperlipidemia, unspecified; Z79.891 Long term (current) use of opiate analgesic; Z79.899 Other long term (current) drug therapy
CPT/HCPCS: 73502; 96372; 99283; J2270

== ENCOUNTER 2023-03-24 11:06 | Emergency (ER) | payer OTHER ==
[2023-03-24 11:19] VITALS: PULSE 74
[2023-03-24] MEDS ORDERED: Adacel Vial IM ONE ×2 (11:44→11:58)
[2023-03-24 12:06] VITALS: BP 119/43
[2023-03-24 12:07] VITALS: O2SAT 100
--- NOTE | 2023-03-24 12:08 | XRAY ---
Indication: 2nd finger pain following injury. Comparison: December 02, 2021 3 view left hand again demonstrates mild/moderate degenerative changes 1st metacarpal multangular scaphoid articulation. No new/acute bony, articular, or soft tissue abnormalities.
--- NOTE | 2023-03-24 12:08 | ERPHSYRPT ---
- History of Present Illness Source: patient Exam Limitations: no limitations Patient Subjective Stated Complaint: pt here for pain to left index finger after it go smashed in a griddle Triage Nursing Assessment: pt alert, walked in, resp easy, skin w/d/p. has abrasion near nailbed of left index finger with swelling noted Physician History: 57 yo WF w crush injury L 2nd digit which occurred at work before arrival. Pt dropped a griddle on the digit. There is a small abrasion and no nail involvement. Pain is mild, and other injuries are denied. She will be given a Tdap in the ER. She is R handed. Occurred: just prior to arrival Method of Injury: direct blow Quality: constant Severity of Pain-Max: moderate Severity of Pain-Current: mild Extremities Pain Location: 2nd finger: left Modifying Factors: Improves With: nothing, movement Associated Symptoms: none Allergies/Adverse Reactions: mushroom Allergy (Severe, Verified 03/24/23 11:13) throat swelling tetracycline [Tetracycline] Allergy (Mild, Verified 03/24/23 11:13) Itching Home Medications: PANTOPRAZOLE 40 mg Tablet [Protonix 40MG Tablet] 40 mg PO DAILY 03/02/12 [History] Pravastatin Sodium [Pravachol] 40 mg PO DAILY 04/14/19 [History] Aspirin EC 81 mg [Ecotrin 81 mg] 1 tab PO DAILY 09/25/19 [History] Lisinopril 5 mg [Zestril 5 MG] 10 mg PO DAILY 09/25/19 [History] Metoprolol Succinate 50 mg [Toprol Xl 50 MG] 50 mg PO DAILY 03/14/21 [History] Isosorbide Mononitrate [Isosorbide Mononitrate ER] 30 mg PO DAILY 04/13/22 [History] clonazePAM [Clonazepam] 0.5 mg PO BID 04/13/22 [History] Hx Tetanus, Diphtheria Vaccination/Date Given: No Hx Influenza Vaccination/Date Given: No Hx Pneumococcal Vaccination/Date Given: No Travel Risk - International Travel Have you traveled outside of the country in past 3 weeks: No - Coronavirus Screening Are you exhibiting any of the following symptoms?: No Close contact with a COVID-19 positive Pt in past 14-21 Days: No - Vaccine Status Have you recieved a Covid-19 vaccination: Yes Infection Control Specialist: Moderna - Vaccination Dates Date of 2cond Vaccination (if applicable): 02/22/2021 - Review of Systems Constitutional: No Symptoms Eyes: No Symptoms Ears, Nose, & Throat: No Symptoms Respiratory: No Symptoms Cardiac: No Symptoms Abdominal/Gastrointestinal: No Symptoms Genitourinary Symptoms: No Symptoms Skin: No Symptoms Neurological: No Symptoms Psychological: No Symptoms Endocrine: No Symptoms Hematologic/Lymphatic: No Symptoms Immunological/Allergic: No Symptoms - Past Medical History Pertinent Past Medical History: Yes Neurological History: Migraines ENT History: No Pertinent History Cardiac History: Coronary Artery Disease, High Cholesterol, Hypertension Respiratory History: No Pertinent History Endocrine Medical History: Other Musculoskeletal History: Arthritis, Osteoarthritis GI Medical History: GERD, Other History: No Pertinent History Psycho-Social History: No Pertinent History Female Reproductive Disorders: No Pertinent History Other Medical History: Fatty liver - Past Surgical History Past Surgical History: Yes Neuro Surgical History: No Pertinent History Cardiac: No Pertinent History Respiratory: No Pertinent History Gastrointestinal: Cholecystectomy, Exploratory Laparoscopy Genitourinary: No Pertinent History Musculoskeletal: No Pertinent History Female Surgical History: No Pertinent History Other Surgical History: artery biopsy - Social History Smoking Status: Never smoker Exposure to second hand smoke: No Drug Use: none Patient Lives Alone: No Significant Family History: no pertinent family hx - Nursing Vital Signs Nursing Vital Signs: Initial Vital Signs Blood Pressure 140/61 03/24/23 11:13 Pain Scale Pain Intensity 5 Hypertensive - Physical Exam General Appearance: no apparent distress Eyes, Ears, Nose, Throat Exam: normal ENT inspection, TMs normal, pharynx normal, moist mucous membranes Neck Exam: normal inspection, non-tender, supple, full range of motion, No Brudzinski, No Kernig's, No meningismus Cardiovascular/Respiratory Exam: normal breath sounds, regular rate/rhythm, heart sounds normal Abdominal Exam: non-tender, soft Back Exam: normal inspection, normal range of motion, No CVA tenderness, No vertebral tenderness Shoulder Exam: normal inspection, non-tender, no evidence of injury Elbow/Forearm Exam: normal inspection, non-tender, no evidence of injury Wrist Exam: normal inspection, non-tender, no evidence of injury Hand Exam: No no evidence of injury (L 2nd digit w distal mild edema/Mild TTP/No nail injury/good distal capillary return and sensation/Small abrasion) DTR - Upper Extremity Exam: bicep (R): 2+, bicep (L): 2+ Neuro/Tendon Exam: normal sensation, normal motor functions, normal tendon functions, responds to pain, no evidence tendon injury, No motor deficit, No sensory deficit Mental Status Exam: alert, oriented x 3, cooperative Skin Exam: normal color, warm, dry SpO2 Interpretation: normal SpO2: 100 O2 Delivery: Room Air - Course Nursing assessment & vital signs reviewed: Yes - Radiology Exams Hand X-ray Interpretation: Reviewed by me, Discussed w/ radiologist (L hand neg for fx) Ordered Tests: Active Orders 24 hr Category Date Time Status HAND (MINIMUM 3 VIEWS) Stat Exams 03/24/23 11:44 Completed Medication Summary Discontinued Medications Generic Name Dose Route Start Last Admin Trade Name Freq PRN Reason Stop Dose Admin Diphtheria/Tetanus/Acell Pertussis 0.5 ml 03/24/23 11:44 03/24/23 12:00 Tdap --Diph,Pertuss(Acell),Tet Vac/Pf 0.5 Ml Vial IM 03/24/23 11:45 0.5 ml .ONCE ONE Administration Diphtheria/Tetanus/Acell Pertussis Confirm 03/24/23 11:58 Tdap --Diph,Pertuss(Acell),Tet Vac/Pf 0.5 Ml Vial Administered 03/24/23 11:59 Dose 0.5 ml IM .STK-MED ONE - Progress Progress Note: 03/24/23 16:11 Nursing note and vital signs reviewed No food or housing insecurities noted Tdap given Pt refused all pain meds during visit XR results reviewed and shared w pt Injury wo nail/nail bed involvement Medical Desision Making - Diagnostic Testing Radiological Interpretation: Reviewed by me, Discussed w/ radiologist - Risk of complications The pt has a mod risk of morbidity or mortality based on: Need for prescription drug management - Departure Departure Disposition: Home Clinical Impression: Contusion of finger of left hand Condition: Good Critical Care Time: No Referrals: INDIRA COE [Primary Care Provider] - Follow up/PCP as directed Instructions: Contusion (DC) Additional Instructions: Ice for 12-24 hours Motrin/Tylenol for pain Follow up with your family MD as needed
== END 2023-03-24 12:19 | disposition home or self-care (01) ==
LOC: ED 11:06
DX: S60.022A Contusion of left index finger without damage to nail, initial encounter (principal); W20.8XXA Other cause of strike by thrown, projected or falling object, initial encounter; Y99.0 Civilian activity done for income or pay; E78.5 Hyperlipidemia, unspecified; I10 Essential (primary) hypertension; Z79.899 Other long term (current) drug therapy; Z23 Encounter for immunization
CPT/HCPCS: 73130; 90471; 90715; 99283

== ENCOUNTER 2023-04-18 20:02 | Emergency (ER) | payer OTHER ==
[2023-04-18] MEDS ORDERED: HYDROCODONE-ACETAMIN 10-325 MG PO STA (20:35)
[2023-04-18] MEDS ORDERED: HYDROCODONE-ACETAMIN 10-325 MG ONE (20:37)
[2023-04-18] MEDS ORDERED: NORCO 5/325 MG PO ONE (20:49)
--- NOTE | 2023-04-18 20:50 | ERPHSYRPT ---
- History of Present Illness Time Seen by Provider: 04/18/23 20:07 Source: patient Exam Limitations: no limitations Patient Subjective Stated Complaint: stepped on a toy truck and hurt my foot. Triage Nursing Assessment: pt brought back to ER via staff in wheelchair. Earlier today around 3pm, pt stepped on a toy truck and now c/o left medial foot pain. No bruising noted, very minimal swelling. Pt c/o pain when putting weight on it. Pedal pulse present. Physician History: 57 years old morbidly obese female presented in the ER after she accidentally stepped on a truck toy while moving furniture earlier this afternoon and since then having moderate to severe sharp pain in the medial foot making it difficult weightbearing. Minimal swelling. No numbness or tingling in the toes. No injury anywhere else. Allergies/Adverse Reactions: mushroom Allergy (Severe, Verified 04/18/23 20:17) throat swelling tetracycline [Tetracycline] Allergy (Mild, Verified 04/18/23 20:17) Itching Home Medications: PANTOPRAZOLE 40 mg Tablet [Protonix 40MG Tablet] 40 mg PO DAILY 03/02/12 [History] Pravastatin Sodium [Pravachol] 40 mg PO DAILY 04/14/19 [History] Aspirin EC 81 mg [Ecotrin 81 mg] 1 tab PO DAILY 09/25/19 [History] Lisinopril 5 mg [Zestril 5 MG] 10 mg PO DAILY 09/25/19 [History] Metoprolol Succinate 50 mg [Toprol Xl 50 MG] 50 mg PO DAILY 03/14/21 [History] Isosorbide Mononitrate [Isosorbide Mononitrate ER] 30 mg PO DAILY 04/13/22 [History] clonazePAM [Clonazepam] 0.5 mg PO BID PRN PRN 04/13/22 [History] Hx Tetanus, Diphtheria Vaccination/Date Given: Yes Hx Influenza Vaccination/Date Given: No Hx Pneumococcal Vaccination/Date Given: No Travel Risk - International Travel Have you traveled outside of the country in past 3 weeks: No - Coronavirus Screening Are you exhibiting any of the following symptoms?: No Close contact with a COVID-19 positive Pt in past 14-21 Days: No - Vaccine Status Have you recieved a Covid-19 vaccination: Yes Harpsichord Maker: Moderna - Vaccination Dates Date of 2cond Vaccination (if applicable): . - Review of Systems Constitutional: No Symptoms Ears, Nose, & Throat: No Symptoms Respiratory: No Symptoms Cardiac: No Symptoms, Orthopnea Musculoskeletal: Injury Skin: No Symptoms Neurological: No Symptoms Hematologic/Lymphatic: No Symptoms - Past Medical History Pertinent Past Medical History: Yes Neurological History: Migraines ENT History: No Pertinent History Cardiac History: Coronary Artery Disease, High Cholesterol, Hypertension Respiratory History: No Pertinent History Endocrine Medical History: Other Musculoskeletal History: Arthritis, Osteoarthritis GI Medical History: GERD, Gallbladder Disease, Other History: No Pertinent History Psycho-Social History: Depression Female Reproductive Disorders: No Pertinent History Other Medical History: Fatty liver - Past Surgical History Past Surgical History: Yes Neuro Surgical History: No Pertinent History Cardiac: No Pertinent History Respiratory: No Pertinent History Gastrointestinal: Cholecystectomy, Exploratory Laparoscopy Genitourinary: No Pertinent History Musculoskeletal: No Pertinent History Female Surgical History: No Pertinent History Other Surgical History: artery biopsy - Social History Smoking Status: Never smoker Exposure to second hand smoke: Yes Drug Use: none Patient Lives Alone: No Significant Family History: no pertinent family hx - Nursing Vital Signs Nursing Vital Signs: Initial Vital Signs Temperature 96.9 F 04/18/23 20:09 Pulse Rate 79 04/18/23 20:09 Respiratory Rate 20 04/18/23 20:09 Blood Pressure 136/61 04/18/23 20:09 O2 Sat by Pulse Oximetry 96 04/18/23 20:09 Pain Scale Pain Intensity 10 - Physical Exam General Appearance: no apparent distress Eyes, Ears, Nose, Throat Exam: normal ENT inspection Neck Exam: normal inspection, full range of motion Cardiovascular/Respiratory Exam: normal breath sounds, regular rate/rhythm Back Exam: normal inspection Ankle Exam: bilateral ankle: non-tender, normal inspection, normal range of motion, no evidence of injury Foot Exam: right foot: non-tender, normal inspection, normal range of motion, no evidence of injury, left foot: bone tenderness (Medial midfoot), limited range of motion, nodule, pain, soft tissue tenderness Neuro/Tendon Exam: normal sensation, normal motor functions Mental Status Exam: alert, oriented x 3, cooperative Skin Exam: normal color SpO2 Interpretation: normal SpO2: 96 O2 Delivery: Room Air Procedures - Splinting Location of Splint: Left Type of Splint: Walking Boot/Shoe Ordered Tests: Active Orders 24 hr Category Date Time Status FOOT (MINIMUM 3 VIEWS) Stat Exams 04/18/23 20:14 Taken Medication Summary Discontinued Medications Generic Name Dose Route Start Last Admin Trade Name Janes PRN Reason Stop Dose Admin Hydrocodone Bitart/Acetaminophen 1 tablet 04/18/23 20:35 04/18/23 20:38 Hydrocodone/Acetamin 10-325 Mg Tablet PO 04/18/23 20:36 1 tablet ONCE STA Administration Hydrocodone Bitart/Acetaminophen Confirm 04/18/23 20:37 Hydrocodone/Acetamin 10-325 Mg Tablet Administered 04/18/23 20:38 Dose 1 tablet .ROUTE .STK-MED ONE - Progress Progress: pain not gone completely Progress Note: 04/18/23 20:47 57 years old morbidly obese female presented in the ER after she accidentally stepped on a truck toy while moving furniture earlier this afternoon and since then having moderate to severe sharp pain in the medial foot making it difficult weightbearing. Minimal swelling. No numbness or tingling in the toes. No injury anywhere else. She is given symptomatic treatment for pain. X-rays foot showed questionable fracture and navicular bone reviewed by me, official report is pending. Placed in long boot and recommended using crutches/walker and staying off weightbearing as much as possible. Not sure with her body habitus she would be able to walk completely off of left foot. Recommended outpatient orthopedics/podiatry follow-up. Discussed signs symptoms of worsening needing return to ER which she seems understanding. Counseled pt/family regarding: diagnosis, need for follow-up, rad results Medical Desision Making - Diagnostic Testing Diagnostic test were ordered, analyzed, and reviewed by me: Yes Radiological Interpretation: Interpreted by me, Reviewed by me - Departure Departure Disposition: Home Clinical Impression: Fracture, foot Condition: Stable Critical Care Time: No Referrals: INDIRA COE [Primary Care Provider] - Follow up with PCP 1 day TOMAS GUTIERREZ DPM [ACTIVE STAFF] - Follow up/PCP as directed (Tomorrow for reevaluation) Instructions: Foot Fracture (DC), Foot Sprain (DC) Additional Instructions: Try to stay off weightbearing. Pain medications as needed. Intermittent ice application. Follow-up with Ortho/podiatry for reevaluation. Return to ER for any worsening Prescriptions: Ibuprofen 600 mg PO Q6HPRN PRN 10 Days #20 tablet PRN Reason: Pain
[2023-04-18] MEDS ORDERED: NORCO 5/325 MG ONE (20:52)
[2023-04-18 20:56] VITALS: BP 139/65; PULSE 66; O2SAT 98
--- NOTE | 2023-04-18 21:12 | XRAY ---
Indication: Pain following injury. Comparison: November 04, 2021 3 nonweightbearing views left foot unchanged again demonstrating mild pes planus, mild 1st MTP degenerative changes, small heel spurs, and large navicular accessory ossicle. No new/acute abnormalities.
== END 2023-04-18 21:02 | disposition home or self-care (01) ==
LOC: ED 20:02
DX: S92.902A Unspecified fracture of left foot, initial encounter for closed fracture (principal); W22.09XA Striking against other stationary object, initial encounter; E78.5 Hyperlipidemia, unspecified; I10 Essential (primary) hypertension; Z79.899 Other long term (current) drug therapy
CPT/HCPCS: 73630; 99283; A9270-GY

== ENCOUNTER 2023-10-25 23:45 | Emergency (ER) | payer BC, OTHER ==
[2023-10-25 23:52] VITALS: TEMP 98
[2023-10-25] MEDS ORDERED: solu-MEDROL 125 MG, Sterile H2O 10 ml 2 ML IV ONE ×2 (23:57)
--- NOTE | 2023-10-25 23:57 | ERPHSYRPT ---
- History of Present Illness Time Seen by Provider: 10/25/23 23:56 Source: patient Exam Limitations: no limitations Patient Subjective Stated Complaint: Pt states "I have been short of breath for the past couple of days and I cannot fight it off anymore. I am coughing as well." Triage Nursing Assessment: Pt presented alert and oriented X 3, skin pwd. Pt ambulates with an upright steady gait, able to speak in clear full sentences pt resting comfortably on the bed. Physician History: This is an obese 58-year-old white female patient who presents with 2-day history of cough, shortness of breath and left earache. Symptoms are not improving. She has chest pain only when she is coughing.. Patient had a negative cardiac catheterization recently. She has no documented history of coronary artery disease. Patient has a history of hypertension, gastroesophageal reflux disease and hyperlipidemia. She has had no nausea vomiting or diarrhea symptoms. Patient's son drove her to the emergency department Timing/Duration: day(s) (2), worse Severity of Dyspnea-Max: mild Severity of Dyspnea-Current: mild Possible Cause: occasional episodes Modifying Factors: Improves With: coughing Associated Symptoms: cough, chest pain/discomfort (Only with coughing), No fever, No wheezing Allergies/Adverse Reactions: mushroom Allergy (Severe, Verified 04/18/23 20:17) throat swelling tetracycline [Tetracycline] Allergy (Mild, Verified 04/18/23 20:17) Itching Home Medications: PANTOPRAZOLE 40 mg Tablet [Protonix 40MG Tablet] 40 mg PO DAILY 03/02/12 [History] Pravastatin Sodium [Pravachol] 40 mg PO DAILY 04/14/19 [History] Aspirin EC 81 mg [Ecotrin 81 mg] 1 tab PO DAILY 09/25/19 [History] Lisinopril 5 mg [Zestril 5 MG] 10 mg PO DAILY 09/25/19 [History] Metoprolol Succinate 50 mg [Toprol Xl 50 MG] 50 mg PO DAILY 03/14/21 [History] Isosorbide Mononitrate [Isosorbide Mononitrate ER] 30 mg PO DAILY 04/13/22 [History] clonazePAM [Clonazepam] 0.5 mg PO BID PRN PRN 04/13/22 [History] Hx Tetanus, Diphtheria Vaccination/Date Given: Yes Hx Influenza Vaccination/Date Given: No Hx Pneumococcal Vaccination/Date Given: No Immunizations Up to Date: No Travel Risk - International Travel Have you traveled outside of the country in past 3 weeks: No - Coronavirus Screening Are you exhibiting any of the following symptoms?: Yes Symptoms: Cough: New Onset, Shortness of Breath Close contact with a COVID-19 positive Pt in past 14-21 Days: No - Vaccine Status Have you recieved a Covid-19 vaccination: Yes 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 - Review of Systems Constitutional: No Symptoms Eyes: No Symptoms Ears, Nose, & Throat: Ear Pain (Left), Throat Pain Respiratory: Cough Cardiac: No Symptoms Abdominal/Gastrointestinal: No Symptoms Genitourinary Symptoms: No Symptoms Musculoskeletal: No Symptoms Skin: No Symptoms Neurological: No Symptoms Psychological: No Symptoms Endocrine: No Symptoms Hematologic/Lymphatic: No Symptoms Immunological/Allergic: No Symptoms All Other Systems: Reviewed and Negative - Past Medical History Pertinent Past Medical History: Yes Neurological History: Migraines ENT History: No Pertinent History Cardiac History: Coronary Artery Disease, High Cholesterol, Hypertension Respiratory History: No Pertinent History Endocrine Medical History: Other Musculoskeletal History: Arthritis, Osteoarthritis GI Medical History: GERD, Gallbladder Disease, Other History: No Pertinent History Psycho-Social History: Depression Female Reproductive Disorders: No Pertinent History Other Medical History: Fatty liver - Past Surgical History Past Surgical History: Yes Neuro Surgical History: No Pertinent History Cardiac: No Pertinent History Respiratory: No Pertinent History Gastrointestinal: Cholecystectomy, Exploratory Laparoscopy Genitourinary: No Pertinent History Musculoskeletal: No Pertinent History Female Surgical History: No Pertinent History Other Surgical History: artery biopsy - Social History Smoking Status: Never smoker Exposure to second hand smoke: Yes Drug Use: none Patient Lives Alone: No Significant Family History: no pertinent family hx - Nursing Vital Signs Nursing Vital Signs: Initial Vital Signs Temperature 98.0 F 10/25/23 23:45 Pulse Rate 80 10/25/23 23:45 Respiratory Rate 20 10/25/23 23:45 Blood Pressure 169/99 10/25/23 23:45 O2 Sat by Pulse Oximetry 99 10/25/23 23:45 Pain Scale Pain Intensity 0 - Physical Exam General Appearance: no apparent distress, alert, anxiety, obese Eye Exam: PERRL/EOMI, eyes nml inspection Ears, Nose, Throat Exam: hearing grossly normal, normal ENT inspection, normal pharynx, abnormal TM (L) (Redness and swelling) Neck Exam: normal inspection, non-tender, supple, full range of motion Respiratory Exam: normal breath sounds, lungs clear, airway intact, No chest tenderness, No respiratory distress Cardiovascular/Chest Exam: normal heart sounds, regular rate/rhythm Abdominal/Gastrointestinal Exam: soft, normal bowel sounds, tenderness Rectal Exam: not done Extremity Exam: non-tender, normal range of motion, normal inspection, normal capillary refill, no calf tenderness, no pedal edema, pelvis stable Neurologic Exam: alert, oriented x 3, cooperative, material dispatcher II-XII nml as tested, normal mood/affect, nml cerebellar function, nml station & gait, sensation nml Skin Exam: normal color, warm, dry Lymphatic Exam: No adenopathy SpO2 Interpretation: normal SpO2: 99 O2 Delivery: Room Air - Course Nursing assessment & vital signs reviewed: Yes Ordered Tests: Active Orders 24 hr Category Date Time Status EKG-ER Only STAT Care 10/25/23 23:57 Active IV Insertion STAT Care 10/25/23 23:57 Active Pulse Oximetry (ED) STAT Care 10/25/23 23:57 Active CHEST 1 VIEW (PORTABLE) Stat Exams 10/25/23 23:57 Taken CHEST WITH CONTRAST [CT] Stat Exams 10/26/23 00:58 Completed BLOOD CULTURE Stat Lab 10/25/23 23:57 Received CBC W DIFF Stat Lab 10/25/23 23:57 Completed CMP Stat Lab 10/25/23 23:57 Completed D-DIMER QUANTITATIVE Stat Lab 10/25/23 23:57 Completed TROPONIN Q4H Lab 10/25/23 23:57 Completed TROPONIN Q4H Lab 10/26/23 03:57 Ordered TROPONIN Q4H Lab 10/26/23 07:57 Ordered Medication Summary Discontinued Medications Generic Name Dose Route Start Last Admin Trade Name Freq PRN Reason Stop Dose Admin Hydrocodone Bitart/Acetaminophen 10 ml 10/26/23 00:27 10/26/23 00:32 Hydrocodone/Acetaminophen 5 Ml Udcup PO 10/26/23 00:28 10 ml STAT STA Administration Hydrocodone Bitart/Acetaminophen Confirm 10/26/23 00:31 Hydrocodone/Acetaminophen 5 Ml Udcup Administered 10/26/23 00:32 Dose 10 ml .ROUTE .STK-MED ONE Methylprednisolone Sodium 0 mg 10/25/23 23:57 10/26/23 00:06 Succinate 125 mg/ Sterile IV 10/25/23 23:58 125 mg Water 2 ml STAT ONE Administration Sodium Chloride 500 mls @ 500 mls/hr 10/26/23 00:58 10/26/23 02:13 Sodium Chloride 0.9% 500 Ml IV 10/26/23 01:57 Infused .Q1H ONE Infusion Sodium Chloride Confirm 10/26/23 01:00 Sodium Chloride 0.9% 500 Ml Administered 10/26/23 01:01 Dose 500 mls @ ud IV .STK-MED ONE Methylprednisolone Sodium Succinate Confirm 10/26/23 00:04 Methylprednis Sod Succ 125 Mg/2 Ml Vial Administered 10/26/23 00:05 Dose 125 mg .ROUTE .STK-MED ONE Sterile Water Confirm 10/26/23 00:04 Water For Injection,Sterile 10 Ml Vial Administered 10/26/23 00:05 Dose 10 ml IJ .STK-MED ONE Lab/Rad Data: Laboratory Result Diagrams 10/26/23 00:01 10/26/23 00:01 Laboratory Results 10/26/23 10/26/23 10/26/23 Range/Units 00:15 00:01 00:01 WBC (4.0-10.5) x10^3/uL RBC (4.1-5.4) x10^6/uL Hgb (12.0-16.0) g/dL Hct (35-47) % MCV (78-100) fL MCH (26-32) pg MCHC (32-36) g/dL RDW (11.5-14.0) % Plt Count (150-450) x10^3/uL MPV (7.5-11.0) fL Gran % (36.0-66.0) % Immature Gran % (Auto) (0.00-0.4) % Nucleat RBC Rel Count (0.00-0.1) % Eos # (Auto) (0-0.5) x10^3/uL Immature Gran # (Auto) (0.00-0.03) x10^3u/L Absolute Lymphs (auto) (1.0-4.6) x10^3/uL Absolute Monos (auto) (0.0-1.3) x10^3/uL Absolute Nucleated RBC (0.00-0.01) x10^3u/L Lymphocytes % (24.0-44.0) % Monocytes % (0.0-12.0) % Eosinophils % (0.00-5.0) % Basophils % (0.0-0.4) % Absolute Granulocytes (1.4-6.9) x10^3/uL Basophils # (0-0.4) x10^3/uL D-Dimer 0.85 H* (0.0-0.50) mg/L Sodium (137-145) mmol/L Potassium (3.5-5.1) mmol/L Chloride (98-107) mmol/L Carbon Dioxide (22-30) mmol/L Anion Gap (5-15) MEQ/L BUN (7-17) mg/dL Creatinine (0.52-1.04) mg/dL Estimated GFR ML/MIN Glucose (74-106) mg/dL Calcium (8.4-10.2) mg/dL Total Bilirubin (0.2-1.3) mg/dL AST (14-36) U/L ALT (0-35) U/L Alkaline Phosphatase (38-126) U/L Troponin I (0.000-0.034) ng/mL NT-Pro-B Natriuret Pep 136 (<300) pg/mL Serum Total Protein (6.3-8.2) g/dL Albumin (3.5-5.0) g/dL Influenza Type A Ag NEGATIVE (NEGATIVE) Influenza Type B Ag NEGATIVE (NEGATIVE) RSV (PCR) POSITIVE (NEGATIVE) SARS-CoV-2 (PCR) POSITIVE A (NEGATIVE) 10/26/23 10/26/23 Range/Units 00:01 00:01 WBC 6.9 (4.0-10.5) x10^3/uL RBC 4.28 (4.1-5.4) x10^6/uL Hgb 13.1 (12.0-16.0) g/dL Hct 40.4 (35-47) % MCV 94.4 (78-100) fL MCH 30.6 (26-32) pg MCHC 32.4 (32-36) g/dL RDW 13.2 (11.5-14.0) % Plt Count 259 (150-450) x10^3/uL MPV 11.1 H (7.5-11.0) fL Gran % 48.4 (36.0-66.0) % Immature Gran % (Auto) 0.3 (0.00-0.4) % Nucleat RBC Rel Count 0.0 (0.00-0.1) % Eos # (Auto) 0.29 (0-0.5) x10^3/uL Immature Gran # (Auto) 0.02 (0.00-0.03) x10^3u/L Absolute Lymphs (auto) 2.07 (1.0-4.6) x10^3/uL Absolute Monos (auto) 1.12 (0.0-1.3) x10^3/uL Absolute Nucleated RBC 0.00 (0.00-0.01) x10^3u/L Lymphocytes % 29.8 (24.0-44.0) % Monocytes % 16.1 H (0.0-12.0) % Eosinophils % 4.2 (0.00-5.0) % Basophils % 1.2 (0.0-0.4) % Absolute Granulocytes 3.36 (1.4-6.9) x10^3/uL Basophils # 0.08 (0-0.4) x10^3/uL D-Dimer (0.0-0.50) mg/L Sodium 137 (137-145) mmol/L Potassium 4.3 (3.5-5.1) mmol/L Chloride 106 (98-107) mmol/L Carbon Dioxide 26 (22-30) mmol/L Anion Gap 9.5 (5-15) MEQ/L BUN 18 H (7-17) mg/dL Creatinine 0.77 (0.52-1.04) mg/dL Estimated GFR 90.5 ML/MIN Glucose 110 H (74-106) mg/dL Calcium 9.2 (8.4-10.2) mg/dL Total Bilirubin 0.40 (0.2-1.3) mg/dL AST 31 (14-36) U/L ALT 26 (0-35) U/L Alkaline Phosphatase 113 (38-126) U/L Troponin I < 0.012 (0.000-0.034) ng/mL NT-Pro-B Natriuret Pep (<300) pg/mL Serum Total Protein 7.5 (6.3-8.2) g/dL Albumin 3.9 (3.5-5.0) g/dL Influenza Type A Ag (NEGATIVE) Influenza Type B Ag (NEGATIVE) RSV (PCR) (NEGATIVE) SARS-CoV-2 (PCR) (NEGATIVE) - Progress Progress: improved, re-examined Air Movement: good Progress Note: 10/26/23 00:31 This patient's medical issue is 1 of moderate complexity. Level complex in the workup performed is based on review of the patient's past medical history, review of the patient's medication list, review of patient drug allergy list, history of present illness and physical findings on examination. The workup includes placement of intravenous line, twelve-lead EKG, BNP, troponin level, D- dimer level, viral swabs, chest x-ray, CBC and CMP. 10/26/23 00:33 Chest x-ray was interpreted by me. I do not see an acute cardiopulmonary process present. 10/26/23 01:14 I interpreted the patient's laboratory data results. Patient is positive for RSV infection as well as COVID-19 infection. She also has an elevated D-dimer. The elevated D-dimer may be secondary to the COVID-19 infection. However she is having some shortness of breath and chest pain with coughing and she is obese. Therefore we will provide her with 500 mL normal saline solution infusion intravenously followed by CT scanning of the chest with contrast to evaluate for pulmonary embolism and pneumonia. 10/26/23 02:38 CAT scan of the chest with contrast was interpreted by the radiologist and I reviewed the impression. CT scan of the shows no acute pulmonary embolus present. There is mention of a right lower lobe apical nodule present. The size listed is 11 cm. I believe this is incorrect it is probably 1.1 cm or 11 mm. Radiologist recommends CAT scan of the chest follow-up in 3 months, PET CT scan or tissue sampling. I have discussed this finding with the patient. We are getting an addendum to this study regarding the nodule. However, I did discuss the finding of the nodule with the patient. 10/26/23 02:45 We also discussed the use of Paxlovid. She is going to contact her primary care provider today to see if this is a medicine she should be placed on Blood Culture(s) Obtained: No Antibiotics given: Yes Counseled pt/family regarding: lab results, diagnosis, need for follow-up, rad results Medical Desision Making - Diagnostic Testing Diagnostic test were ordered, analyzed, and reviewed by me: Yes Radiological Interpretation: Interpreted by me - Risk of complications The pt has a mod risk of morbidity or mortality based on: Need for prescription drug management - Departure Departure Disposition: Home Clinical Impression: RSV bronchitis, COVID-19 virus infection, Right lower lobe pulmonary nodule Condition: Stable Critical Care Time: No Referrals: INDIRA COE [ACTIVE STAFF] - Follow up/PCP as directed Additional Instructions: Drink plenty of fluids. Take your medications as prescribed. Call your primary care provider today to let them know you have tested positive for COVID-19 infection to see if Paxlovid is a medication you should use and to arrange further evaluation of the right pulmonary nodule we spoke about. If you are not employee then make sure you follow the policy of your institution to return to work secondary to COVID-19 infection. Prescriptions: Prednisone 10 mg [Deltasone 10 mg] 10 mg PO TID #12 tablet Hydrocodone/Acetaminophen [Hydrocodone-Acetamn 7.5-325/15] 10 ml PO Q8H PRN #120 ml MDD 30 ml PRN Reason: Cough
[2023-10-26] MEDS ORDERED: solu-MEDROL ONE (00:04)
[2023-10-26] MEDS ORDERED: Sterile H2O 10 ml IJ ONE (00:04)
[2023-10-26] MEDS ORDERED: HYDROCODONE-ACETAMIN 2.5-108/5 ML SOLUTION PO STA (00:27)
[2023-10-26 00:29] LABS: Absolute Neutrophil Ct (ANC) 3.36 x10^3/uL (1.4-6.9); BASOPHIL % 1.2 % (0.0-0.4); Basophil (Absolute #) 0.08 x10^3/uL (0-0.4); Eosinophil % 4.2 % (0.00-5.0); Eosinophil (Absolute #) 0.29 x10^3/uL (0-0.5); Hematocrit 40.4 % (35-47); Hemoglobin 13.1 g/dL (12.0-16.0); IMMATURE GRAN # 0.02 x10^3u/L (0.00-0.03); IMMATURE GRAN % 0.3 % (0.00-0.4); Lymphocyte (Absolute #) 2.07 x10^3/uL (1.0-4.6); Lymphocytes % 29.8 % (24.0-44.0); Mean Cell Volume 94.4 fL (78-100); Mean Corpuscular Hemoglobin 30.6 pg (26-32); Mean Corpuscular Hgb Concent. 32.4 g/dL (32-36); Mean Platelet Volume 11.1 fL (7.5-11.0); Monocyte (Absolute #) 1.12 x10^3/uL (0.0-1.3); Monocytes % 16.1 % (0.0-12.0); Neutrophil % 48.4 % (36.0-66.0); Platelet Count 259 x10^3/uL (150-450); Red Blood Count 4.28 x10^6/uL (4.1-5.4); Red Cell Distribution Width 13.2 % (11.5-14.0); White Blood Count 6.9 x10^3/uL (4.0-10.5)
[2023-10-26] MEDS ORDERED: HYDROCODONE-ACETAMIN 2.5-108/5 ML SOLUTION ONE (00:31)
[2023-10-26 00:56] LABS: ALBUMIN 3.9 g/dL (3.5-5.0); ALKALINE PHOSPHATASE 113 U/L (38-126); ANION GAP 9.5 MEQ/L (5-15); BLOOD UREA NITROGEN 18 mg/dL (7-17); CHLORIDE 106 mmol/L (98-107); Calcium 9.2 mg/dL (8.4-10.2); Carbon Dioxide 26 mmol/L (22-30); Creatinine 1 0.77 mg/dL (0.52-1.04); EST GLOMERULAR FILTRATION RATE 90.5 ML/MIN; Glucose 110 mg/dL (74-106); Potassium 4.3 mmol/L (3.5-5.1); SGOT/AST 31 U/L (14-36); SGPT/ALT 26 U/L (0-35); SODIUM 137 mmol/L (137-145); TROPONIN < 0.012 ng/mL (0.000-0.034); Total Protein 7.5 g/dL (6.3-8.2)
[2023-10-26] MEDS ORDERED: Sodium Chloride 0.9% 500 ML 500 ML IV ONE ×2 (00:58→01:00)
[2023-10-26 01:04] LABS: INFLUENZA A NEGATIVE (NEGATIVE); INFLUENZA B NEGATIVE (NEGATIVE)
[2023-10-26 01:08] LABS: SARS-CoV-2 Xpert Express POSITIVE (NEGATIVE)
[2023-10-26 01:09] LABS: RESPIRATORY SYNCTIAL VIRUS POSITIVE (NEGATIVE)
[2023-10-26 02:13] VITALS: RESP 21
--- NOTE | 2023-10-26 02:28 | XRAY ---
CLINICAL HISTORY:SOB; elevated D-dimer COMPARISON:None. TECHNIQUE:Contiguous axial CT images of the chest were acquired with the administration of intravenous contrast. Coronal and sagittal reconstructions were obtained and submitted for interpretation. FINDINGS: No evidence of any filling defect in the main pulmonary trunk, bilateral main pulmonary arteries or their segmental arteries. Patent examined thoracic aorta showing no intraluminal hypodense thrombi or dissecting intimal flaps. Right lower lobe apical segment pulmonary nodule measuring about 11 cm in diameter. Bilateral lower lobes fine atelectatic plates and subpleural nodular densities/infiltrates. No pulmonary consolidations or cavitations. Mild cardiomegaly of left atrioventricular preponderance. No pleural or pericardial sac collections. Degenerative spondylotic changes are seen in the spine. Scanned upper abdominal cuts show cholecystectomy clips. IMPRESSION: 1. No evidence of acute or chronic thromboembolism with the main pulmonary trunk, bilateral main pulmonary arteries or their segmental arteries. 2. Right lower lobe 11 cm pulmonary nodule. Consider CT at 3 months, PET-CT, or tissue sampling according to Fleischner Society pulmonary nodule recommendations Electronically Signed by: Ankur Persaud MD. (10/26/2023 02:23:50 EST)
[2023-10-26] MEDS ORDERED: AMOXIL 500 MG PO ONE (02:50)
[2023-10-26] MEDS ORDERED: AMOXIL 500 MG ONE (03:01)
[2023-10-26 03:03] VITALS: BP 119/63; PULSE 76; O2SAT 95
--- NOTE | 2023-10-26 08:45 | XRAY ---
Indication: Cough and short of breath. Comparison: March 10, 2022 Portable chest again demonstrates normal heart and lungs. Bony thorax intact again with mild degenerative changes. No new/acute findings.
== END 2023-10-26 03:18 | disposition home or self-care (01) ==
LOC: ED 23:45
DX: J20.5 Acute bronchitis due to respiratory syncytial virus (principal); U07.1 COVID-19; R91.1 Solitary pulmonary nodule; H66.92 Otitis media, unspecified, left ear; R05.1 Acute cough; R06.02 Shortness of breath; H92.02 Otalgia, left ear; I10 Essential (primary) hypertension; E78.5 Hyperlipidemia, unspecified; Z79.899 Other long term (current) drug therapy; Z79.891 Long term (current) use of opiate analgesic; Z79.52 Long term (current) use of systemic steroids
CPT/HCPCS: 0241U; 36000; 36415; 71045; 71260; 80053; 83880; 84484; 85025; 85379; 87040; 93005; 94760; 96374; 99284; J2930; A9270-GY

== ENCOUNTER 2023-12-06 18:19 | Observation (INO) | payer BC ==
--- NOTE | 2023-12-06 19:08 | ERPHSYRPT ---
- History of Present Illness Source: patient, family Exam Limitations: no limitations Patient Subjective Stated Complaint: Body aches Triage Nursing Assessment: Patient brought back to ED per w/c and transferred self to bed. Patient A+O X3. Patient's skin pink, warm and dry. Patient complains of body aches and just not feeling well. Patient's left side of cheek noted to be red, warm, swollen, and painful 04/19. Patient states the cheek started with redness last night and she woke up with body aches. Timing/Duration: today Quality: burning, painful Severity: moderate Location: face Hx Tetanus, Diphtheria Vaccination/Date Given: Yes Hx Influenza Vaccination/Date Given: No Hx Pneumococcal Vaccination/Date Given: No Immunizations Up to Date: Yes <TYLER MUNIZ - Last Filed: 12/06/23 19:02> <KAVITHA LONGORIA - Last Filed: 12/06/23 21:14> - History of Present Illness Time Seen by Provider: 12/06/23 18:50 Physician History: Patient is a 58-year-old white female who started this morning with redness pain and swelling on the left cheek she does not feel this is related to do any dental infection but there is no other explanation for what is appears to be obviously a cellulitis.She said she did not have any fever she has had no nausea vomiting or diarrhea she complains primarily of body aches (TYLER MUNIZ) Allergies/Adverse Reactions: mushroom Allergy (Severe, Verified 12/06/23 18:43) throat swelling tetracycline [Tetracycline] Allergy (Mild, Verified 12/06/23 18:43) Itching Home Medications: PANTOPRAZOLE 40 mg Tablet [Protonix 40MG Tablet] 40 mg PO DAILY 03/02/12 [History] Pravastatin Sodium [Pravachol] 40 mg PO DAILY 04/14/19 [History] Aspirin EC 81 mg [Ecotrin 81 mg] 1 tab PO DAILY 09/25/19 [History] Lisinopril 5 mg [Zestril 5 MG] 10 mg PO DAILY 09/25/19 [History] Metoprolol Succinate 50 mg [Toprol Xl 50 MG] 50 mg PO DAILY 03/14/21 [History] Isosorbide Mononitrate [Isosorbide Mononitrate ER] 30 mg PO DAILY 04/13/22 [History] clonazePAM [Clonazepam] 0.5 mg PO BID PRN PRN 04/13/22 [History] Travel Risk - International Travel Have you traveled outside of the country in past 3 weeks: No - Coronavirus Screening Are you exhibiting any of the following symptoms?: No Close contact with a COVID-19 positive Pt in past 14-21 Days: No - Vaccine Status Have you recieved a Covid-19 vaccination: Yes [employer]: Moderna - Vaccination Dates Date of 2cond Vaccination (if applicable): . <TYLER MUNIZ - Last Filed: 12/06/23 19:02> - Review of Systems Constitutional: No Fever, No Chills Eyes: No Symptoms Ears, Nose, & Throat: No Symptoms Respiratory: No Cough, No Dyspnea Cardiac: No Chest Pain, No Edema, No Syncope Abdominal/Gastrointestinal: No Abdominal Pain, No Nausea, No Vomiting, No Diarrhea Genitourinary Symptoms: No Dysuria Musculoskeletal: No Back Pain, No Neck Pain Skin: Cellulitis (Left cheek and face), No Rash Neurological: No Dizziness, No Focal Weakness, No Sensory Changes Psychological: No Symptoms Endocrine: No Symptoms All Other Systems: Reviewed and Negative <TYLER MUNIZ - Last Filed: 12/06/23 19:02> - Past Medical History Pertinent Past Medical History: Yes Neurological History: Migraines ENT History: No Pertinent History Cardiac History: Coronary Artery Disease, High Cholesterol, Hypertension Respiratory History: No Pertinent History Endocrine Medical History: Other Musculoskeletal History: Arthritis, Osteoarthritis GI Medical History: GERD, Gallbladder Disease, Other History: No Pertinent History Psycho-Social History: Depression Female Reproductive Disorders: No Pertinent History Other Medical History: Fatty liver - Past Surgical History Past Surgical History: Yes Neuro Surgical History: No Pertinent History Cardiac: No Pertinent History Respiratory: No Pertinent History Gastrointestinal: Cholecystectomy, Exploratory Laparoscopy Genitourinary: No Pertinent History Musculoskeletal: No Pertinent History Female Surgical History: No Pertinent History Other Surgical History: artery biopsy - Social History Smoking Status: Never smoker Exposure to second hand smoke: Yes Drug Use: none Patient Lives Alone: No Significant Family History: no pertinent family hx <TYLER MUNIZ - Last Filed: 12/06/23 19:02> - Physical Exam General Appearance: moderate distress, alert Eye Exam: PERRL/EOMI, eyes nml inspection Ears, Nose, Throat Exam: normal ENT inspection, pharynx normal, moist mucous membranes Neck Exam: normal inspection, non-tender, supple, full range of motion Respiratory Exam: normal breath sounds, lungs clear, No respiratory distress Cardiovascular Exam: regular rate/rhythm, normal heart sounds Gastrointestinal/Abdomen Exam: soft, mass, No tenderness Back Exam: normal inspection, normal range of motion, No CVA tenderness, No vertebral tenderness Extremity Exam: normal inspection, normal range of motion Neurologic Exam: alert, oriented x 3, cooperative, normal mood/affect, sensation nml, No motor deficits Skin Exam: normal color, warm, dry, other (There is an area of cellulitis to the left cheek left upper neck and face) SpO2 Interpretation: normal SpO2: 99 O2 Delivery: Room Air <TYLER MUNIZ - Last Filed: 12/06/23 19:02> - Nursing Vital Signs Nursing Vital Signs: Initial Vital Signs Temperature 98.7 F 12/06/23 18:36 Pulse Rate 80 12/06/23 18:36 Respiratory Rate 16 12/06/23 18:36 Blood Pressure 164/99 12/06/23 18:36 O2 Sat by Pulse Oximetry 99 12/06/23 18:36 Pain Scale Pain Intensity 7 - Course Nursing assessment & vital signs reviewed: Yes <TYLER MUNIZ - Last Filed: 12/06/23 19:02> Ordered Tests: Active Orders 24 hr Category Date Time Status IV Insertion STAT Care 12/06/23 18:53 Active NECK WITH CONTRAST [CT] Stat Exams 12/06/23 18:59 Taken BLOOD CULTURE Stat Lab 12/06/23 19:09 Received CBC W DIFF Stat Lab 12/06/23 18:43 Completed CMP Stat Lab 12/06/23 18:55 Completed Lactic Acid Stat Lab 12/06/23 19:01 Completed SED RATE [Erythrocyte Sedimentation Rate] Stat Lab 12/06/23 18:55 Completed Medication Summary Generic Name Dose Route Start Last Admin Trade Name Freq PRN Reason Stop Dose Admin Sodium Chloride 1,000 mls @ 100 mls/hr 12/06/23 19:00 12/06/23 19:27 Sodium Chloride 0.9% 1000 Ml IV 01/05/24 18:59 100 mls/hr .Q10H JOHANNE Administration Vancomycin HCl 1 gm in 200 mls @ 125 mls/hr 12/06/23 19:00 12/06/23 20:06 Vancomycin 1 Gram/200 Ml Bag IV 01/05/24 18:59 125 ml/hr Q24H JOHANNE 125 mls/hr Administration Discontinued Medications Generic Name Dose Route Start Last Admin Trade Name Janes PRN Reason Stop Dose Admin Ceftriaxone Sodium 1 gm in 100 mls @ 200 mls/hr 12/06/23 18:56 12/06/23 19:57 Rocephin 1 Gm / 100 Ml Nacl IV 12/06/23 19:25 Infused STAT ONE Infusion Ceftriaxone Sodium Confirm 12/06/23 19:21 Rocephin 1 Gm / 100 Ml Nacl Administered 12/06/23 19:22 Dose 1 gm in 100 mls @ ud IV .K-MED ONE Lab/Rad Data: Laboratory Result Diagrams 12/06/23 18:43 12/06/23 18:55 Laboratory Results 12/06/23 12/06/23 12/06/23 Range/Units 19:01 18:55 18:55 WBC (4.0-10.5) x10^3/uL RBC (4.1-5.4) x10^6/uL Hgb (12.0-16.0) g/dL Hct (35-47) % MCV (78-100) fL MCH (26-32) pg MCHC (32-36) g/dL RDW (11.5-14.0) % Plt Count (150-450) x10^3/uL MPV (7.5-11.0) fL Gran % (36.0-66.0) % Immature Gran % (Auto) (0.00-0.4) % Nucleat RBC Rel Count (0.00-0.1) % Eos # (Auto) (0-0.5) x10^3/uL Immature Gran # (Auto) (0.00-0.03) x10^3u/L Absolute Lymphs (auto) (1.0-4.6) x10^3/uL Absolute Monos (auto) (0.0-1.3) x10^3/uL Absolute Nucleated RBC (0.00-0.01) x10^3u/L Lymphocytes % (24.0-44.0) % Monocytes % (0.0-12.0) % Eosinophils % (0.00-5.0) % Basophils % (0.0-0.4) % Absolute Granulocytes (1.4-6.9) x10^3/uL Basophils # (0-0.4) x10^3/uL ESR 92 H (0-20) mm/hr Sodium 138 (137-145) mmol/L Potassium 3.4 L (3.5-5.1) mmol/L Chloride 105 (98-107) mmol/L Carbon Dioxide 22 (22-30) mmol/L Anion Gap 14.5 (5-15) MEQ/L BUN 10 (7-17) mg/dL Creatinine 0.63 (0.52-1.04) mg/dL Estimated GFR 104.1 ML/MIN Glucose 86 (74-106) mg/dL Lactic Acid 1.0 (0.4-2.0) Calcium 9.4 (8.4-10.2) mg/dL Total Bilirubin 0.90 (0.2-1.3) mg/dL AST 32 (14-36) U/L ALT 24 (0-35) U/L Alkaline Phosphatase 114 (38-126) U/L Serum Total Protein 7.7 (6.3-8.2) g/dL Albumin 4.1 (3.5-5.0) g/dL 12/06/23 Range/Units 18:43 WBC 8.3 (4.0-10.5) x10^3/uL RBC 4.16 (4.1-5.4) x10^6/uL Hgb 12.7 (12.0-16.0) g/dL Hct 38.8 (35-47) % MCV 93.3 (78-100) fL MCH 30.5 (26-32) pg MCHC 32.7 (32-36) g/dL RDW 12.7 (11.5-14.0) % Plt Count 261 (150-450) x10^3/uL MPV 11.6 H (7.5-11.0) fL Gran % 60.5 (36.0-66.0) % Immature Gran % (Auto) 0.5 H (0.00-0.4) % Nucleat RBC Rel Count 0.0 (0.00-0.1) % Eos # (Auto) 0.11 (0-0.5) x10^3/uL Immature Gran # (Auto) 0.04 H (0.00-0.03) x10^3u/L Absolute Lymphs (auto) 1.95 (1.0-4.6) x10^3/uL Absolute Monos (auto) 1.10 (0.0-1.3) x10^3/uL Absolute Nucleated RBC 0.00 (0.00-0.01) x10^3u/L Lymphocytes % 23.6 L (24.0-44.0) % Monocytes % 13.3 H (0.0-12.0) % Eosinophils % 1.3 (0.00-5.0) % Basophils % 0.8 (0.0-0.4) % Absolute Granulocytes 4.99 (1.4-6.9) x10^3/uL Basophils # 0.07 (0-0.4) x10^3/uL ESR (0-20) mm/hr Sodium (137-145) mmol/L Potassium (3.5-5.1) mmol/L Chloride (98-107) mmol/L Carbon Dioxide (22-30) mmol/L Anion Gap (5-15) MEQ/L BUN (7-17) mg/dL Creatinine (0.52-1.04) mg/dL Estimated GFR ML/MIN Glucose (74-106) mg/dL Lactic Acid (0.4-2.0) Calcium (8.4-10.2) mg/dL Total Bilirubin (0.2-1.3) mg/dL AST (14-36) U/L ALT (0-35) U/L Alkaline Phosphatase (38-126) U/L Serum Total Protein (6.3-8.2) g/dL Albumin (3.5-5.0) g/dL - Progress Progress: unchanged Discussed with : Da Will see patient in: hospital (observation) Counseled pt/family regarding: lab results, diagnosis, rad results <KAVITHA LONGORIA - Last Filed: 12/06/23 21:14> - Progress Progress Note: 12/06/23 21:09 Patient is checked out to me at shift change from Dr. Muniz with pending workup. Patient presented with left facial swelling gradual worsening overnight without fever chills or difficulty movements of the left eyeball. No difficulty breathing or swallowing. Workup showed normal white count, fairly unremarkable chemistries. She has received a dose of Rocephin and vancomycin. CT neck/face heart failure luminary report showed soft tissue swelling with no abscess. Discussed with Dr. Faustin, reviewed history, workup and agreed with admission. I have discussed the results of workup with patient and family and plan of admission which they understand and agree. (KAVITHA LONGORIA) Medical Desision Making - Independent Historian Additional History obtained from: Child - Discussion of managment Care discussed with:: hospitalist Reviewed:: Test results Agreed on:: Treatment plan, place in obs Will see patient: in hospital - Diagnostic Testing Diagnostic test were ordered, analyzed, and reviewed by me: Yes Radiological Interpretation: Reviewed by me, Teleradiologist Report - Risk of complications The pt has a high risk of morbidity or mortality based on: Decision regarding ho spitilization or escalation of hosp level of care <KAVITHA LONGORIA - Last Filed: 12/06/23 21:14> - Departure Departure Disposition: Observation Critical Care Time: No <TYLER MUNIZ - Last Filed: 12/06/23 19:02> <KAVITHA LNOGORIA - Last Filed: 12/06/23 21:14> - Departure Clinical Impression: Cellulitis Qualifiers: Site of cellulitis: face Qualified Code(s): L03.211 - Cellulitis of face Condition: Fair Referrals: DOCTOR,NO FAMILY [NON-STAFF PHY W/O PRIVILEGES] - Follow up/PCP as directed
[2023-12-06 19:18] LABS: Absolute Neutrophil Ct (ANC) 4.99 x10^3/uL (1.4-6.9); BASOPHIL % 0.8 % (0.0-0.4); Basophil (Absolute #) 0.07 x10^3/uL (0-0.4); Eosinophil % 1.3 % (0.00-5.0); Eosinophil (Absolute #) 0.11 x10^3/uL (0-0.5); Hematocrit 38.8 % (35-47); Hemoglobin 12.7 g/dL (12.0-16.0); IMMATURE GRAN # 0.04 x10^3u/L (0.00-0.03); IMMATURE GRAN % 0.5 % (0.00-0.4); Lymphocyte (Absolute #) 1.95 x10^3/uL (1.0-4.6); Lymphocytes % 23.6 % (24.0-44.0); Mean Cell Volume 93.3 fL (78-100); Mean Corpuscular Hemoglobin 30.5 pg (26-32); Mean Corpuscular Hgb Concent. 32.7 g/dL (32-36); Mean Platelet Volume 11.6 fL (7.5-11.0); Monocytes % 13.3 % (0.0-12.0); Neutrophil % 60.5 % (36.0-66.0); Platelet Count 261 x10^3/uL (150-450); Red Blood Count 4.16 x10^6/uL (4.1-5.4); Red Cell Distribution Width 12.7 % (11.5-14.0); White Blood Count 8.3 x10^3/uL (4.0-10.5)
[2023-12-06] MEDS ORDERED: ROCEPHIN 1 GM / 100 ML NaCl 1 GM/100 ML IVPB IV ONE (19:21)
[2023-12-06] MEDS ORDERED: Sodium Chloride 0.9% 1000 ML 1,000 ML ONE (19:21)
[2023-12-06] MEDS: Sodium Chloride 0.9% 1000 ML 1,000 ML IV SCH ×2 (19:27→23:23)
[2023-12-06] MEDS: ROCEPHIN 1 GM / 100 ML NaCl 1 GM/100 ML IVPB IV ONE (19:27)
[2023-12-06 19:31] LABS: ALBUMIN 4.1 g/dL (3.5-5.0); ANION GAP 14.5 MEQ/L (5-15); BILIRUBIN,TOTAL 0.9 mg/dL (0.2-1.3); Calcium 9.4 mg/dL (8.4-10.2); Creatinine 1 0.63 mg/dL (0.52-1.04); EST GLOMERULAR FILTRATION RATE 104.1 ML/MIN; Potassium 3.4 mmol/L (3.5-5.1); Total Protein 7.7 g/dL (6.3-8.2)
[2023-12-06] MEDS: VANCOMYCIN 1 GRAM/200 ML BAG 1 GM/200 ML PIGGYBACK IV SCH ×2 (20:06→23:18)
[2023-12-06] MEDS ORDERED: Zofran 4 MG/2 ML VIAL ONE (21:32)
[2023-12-06] MEDS ORDERED: MORPHINE SULFATE 4 MG INJ ONE (21:32)
[2023-12-06] MEDS: MORPHINE SULFATE 4 MG INJ IV ONE (21:35)
[2023-12-06] MEDS: Zofran 4 MG/2 ML VIAL IV ONE (21:35)
[2023-12-06] MEDS ORDERED: Zofran 4 MG/2 ML VIAL IV PRN (23:14)
[2023-12-06] MEDS ORDERED: MILK OF MAGNESIA 30 ML PO PRN (23:14)
[2023-12-06] MEDS ORDERED: Docusate Sodium 100 MG PO PRN (23:14)
[2023-12-06] MEDS: ROCEPHIN 1 GM / 100 ML NaCl 1 GM/100 ML IVPB IV SCH (23:18)
[2023-12-06] MEDS: Klor Con PO ONE (23:22)
--- NOTE | 2023-12-06 23:22 | PCM.HP ---
History of Present Illness - Chief Complaint Chief Complaint: Left facial cellulitis Date: 12/06/23 History of Present Illness: is a 58 year old female with a history of CAD, HTN and hyperlipidemia, who presented to the hospital with myalgias, malaise and left sided cheek and jaw pain. The patient started to note a left facial rash which began on the night prior to admission. She was noted to have a cellulitis of the face and antibiotics were initiated in the ED. She denied fever. She is able to open and close her left eye and her mouth. . - Review of Systems Constitutional: Fatigue, Malaise Eyes: No Symptoms Ears, Nose, & Throat: No Symptoms Respiratory: No Symptoms Cardiac: No Symptoms Abdominal/Gastrointestinal: No Symptoms Genitourinary Symptoms: No Symptoms Musculoskeletal: Myalgias Skin: Cellulitis, Rash Neurological: No Symptoms Psychological: No Symptoms Endocrine: No Symptoms Hematologic/Lymphatic: No Symptoms Immunological/Allergic: No Symptoms All Other Systems: Reviewed and Negative Medications & Allergies Home Medications: Home Medication List PANTOPRAZOLE 40 mg Tablet [Protonix 40MG Tablet] 40 mg PO DAILY 03/02/12 [History Confirmed 12/06/23] Pravastatin Sodium [Pravachol] 40 mg PO DAILY 04/14/19 [History Confirmed 12/06/23] Aspirin EC 81 mg [Ecotrin 81 mg] 1 tab PO DAILY 09/25/19 [History Confirmed 12/06/23] Lisinopril 5 mg [Zestril 5 MG] 10 mg PO DAILY 09/25/19 [History Confirmed 12/06/23] Metoprolol Succinate 50 mg [Toprol Xl 50 MG] 50 mg PO DAILY 03/14/21 [History Confirmed 12/06/23] Isosorbide Mononitrate [Isosorbide Mononitrate ER] 30 mg PO DAILY 04/13/22 [History Confirmed 12/06/23] Azelastine Nasal [Astelin Nasal] 30 ml NS BID 12/06/23 [History Confirmed 12/06/23] Allergies/Adverse Reactions: Allergies Allergy/AdvReac Type Severity Reaction Status Date / Time mushroom Allergy Severe throat Verified 12/06/23 22:33 swelling tetracycline [Tetracycline] Allergy Mild Itching Verified 12/06/23 22:33 - Past Medical History Past Medical History: Yes Neurological History: Migraines ENT History: No Pertinent History Cardiac History: Coronary Artery Disease, High Cholesterol, Hypertension Respiratory History: No Pertinent History Endocrine Medical History: Other Musculoskelatal History: Arthritis, Osteoarthritis GI Medical History: GERD, Gallbladder Disease, Other History: No Pertinent History Pyscho-Social History: Depression Reproductive Disorders: No Pertinent History Comment: Fatty liver - Female History Hx Last Menstrual Period: menopause Are you now?: No - Past Surgical History Past Surgical History: Yes Neuro Surgical History: No Pertinent History Cardiac History: No Pertinent History Respiratory Surgery: No Pertinent History GI Surgical History: Cholecystectomy, Exploratory Laparoscopy Genitourinary Surgical Hx: No Pertinent History Musculskeletal Surgical Hx: No Pertinent History Female Surgical History: No Pertinent History Other Surgical History: artery biopsy Significant Family History: no pertinent family hx - Social History Smoking Status: Never smoker Exposure to second hand smoke: Yes Alcohol: None Drug Use: none - Social Determinants of Health Will the patient participate in the screening: Yes Do you worry about a steady place to live?: No Do you have any problems with any of the following?: No known problems In the past 12 months,have you had to go without utilities?: No Have you or anyone in your house had to go without enough: No Transportation Issues: No Has anyone in your support network made you feel unsafe?: No Does the patient want assistance with any of the above?: No - Physical Exam Vital Signs: Vital Signs - 24 hr Temp Pulse Resp BP BP Pulse Ox 12/06/23 22:15 97.8 F 79 18 125/59 96 12/06/23 22:00 91 H 26 H 133/68 96 12/06/23 21:58 87 28 H 133/75 95 12/06/23 21:00 84 16 158/86 98 12/06/23 20:31 86 20 153/80 95 12/06/23 20:00 80 18 156/92 97 12/06/23 19:30 79 16 162/95 98 12/06/23 19:07 99 12/06/23 19:01 82 20 158/81 97 12/06/23 18:36 98.7 F 80 16 164/99 99 General Appearance: no apparent distress, alert Neurologic Exam: alert, oriented x 3, cooperative, critical care registered nurse II-XII nml as tested, normal mood/affect, nml cerebellar function Eye Exam: PERRL/EOMI, eyes nml inspection Ears, Nose, Throat Exam: normal ENT inspection Neck Exam: normal inspection, non-tender, supple, full range of motion Respiratory Exam: normal breath sounds, lungs clear Cardiovascular Exam: regular rate/rhythm, normal heart sounds Gastrointestinal/Abdomen Exam: soft, normal bowel sounds Back Exam: normal range of motion Extremity Exam: normal inspection, normal range of motion Skin Exam: rash, other (erythematous rash noted on left face from near the orbit, down the left cheek towards the chin.) Results - Labs Lab/Micro Results: Lab Results-Last 24 Hours 12/06/23 12/06/23 12/06/23 Range/Units 18:43 18:55 18:55 WBC 8.3 (4.0-10.5) x10^3/uL RBC 4.16 (4.1-5.4) x10^6/uL Hgb 12.7 (12.0-16.0) g/dL Hct 38.8 (35-47) % MCV 93.3 (78-100) fL MCH 30.5 (26-32) pg MCHC 32.7 (32-36) g/dL RDW 12.7 (11.5-14.0) % Plt Count 261 (150-450) x10^3/uL MPV 11.6 H (7.5-11.0) fL Gran % 60.5 (36.0-66.0) % Immature Gran % (Auto) 0.5 H (0.00-0.4) % Nucleat RBC Rel Count 0.0 (0.00-0.1) % Eos # (Auto) 0.11 (0-0.5) x10^3/uL Immature Gran # (Auto) 0.04 H (0.00-0.03) x10^3u/L Absolute Lymphs (auto) 1.95 (1.0-4.6) x10^3/uL Absolute Monos (auto) 1.10 (0.0-1.3) x10^3/uL Absolute Nucleated RBC 0.00 (0.00-0.01) x10^3u/L Lymphocytes % 23.6 L (24.0-44.0) % Monocytes % 13.3 H (0.0-12.0) % Eosinophils % 1.3 (0.00-5.0) % Basophils % 0.8 (0.0-0.4) % Absolute Granulocytes 4.99 (1.4-6.9) x10^3/uL Basophils # 0.07 (0-0.4) x10^3/uL ESR 92 H (0-20) mm/hr Sodium 138 (137-145) mmol/L Potassium 3.4 L (3.5-5.1) mmol/L Chloride 105 (98-107) mmol/L Carbon Dioxide 22 (22-30) mmol/L Anion Gap 14.5 (5-15) MEQ/L BUN 10 (7-17) mg/dL Creatinine 0.63 (0.52-1.04) mg/dL Estimated GFR 104.1 ML/MIN Glucose 86 (74-106) mg/dL Lactic Acid (0.4-2.0) Calcium 9.4 (8.4-10.2) mg/dL Total Bilirubin 0.90 (0.2-1.3) mg/dL AST 32 (14-36) U/L ALT 24 (0-35) U/L Alkaline Phosphatase 114 (38-126) U/L Serum Total Protein 7.7 (6.3-8.2) g/dL Albumin 4.1 (3.5-5.0) g/dL 12/06/23 Range/Units 19:01 WBC (4.0-10.5) x10^3/uL RBC (4.1-5.4) x10^6/uL Hgb (12.0-16.0) g/dL Hct (35-47) % MCV (78-100) fL MCH (26-32) pg MCHC (32-36) g/dL RDW (11.5-14.0) % Plt Count (150-450) x10^3/uL MPV (7.5-11.0) fL Gran % (36.0-66.0) % Immature Gran % (Auto) (0.00-0.4) % Nucleat RBC Rel Count (0.00-0.1) % Eos # (Auto) (0-0.5) x10^3/uL Immature Gran # (Auto) (0.00-0.03) x10^3u/L Absolute Lymphs (auto) (1.0-4.6) x10^3/uL Absolute Monos (auto) (0.0-1.3) x10^3/uL Absolute Nucleated RBC (0.00-0.01) x10^3u/L Lymphocytes % (24.0-44.0) % Monocytes % (0.0-12.0) % Eosinophils % (0.00-5.0) % Basophils % (0.0-0.4) % Absolute Granulocytes (1.4-6.9) x10^3/uL Basophils # (0-0.4) x10^3/uL ESR (0-20) mm/hr Sodium (137-145) mmol/L Potassium (3.5-5.1) mmol/L Chloride (98-107) mmol/L Carbon Dioxide (22-30) mmol/L Anion Gap (5-15) MEQ/L BUN (7-17) mg/dL Creatinine (0.52-1.04) mg/dL Estimated GFR ML/MIN Glucose (74-106) mg/dL Lactic Acid 1.0 (0.4-2.0) Calcium (8.4-10.2) mg/dL Total Bilirubin (0.2-1.3) mg/dL AST (14-36) U/L ALT (0-35) U/L Alkaline Phosphatase (38-126) U/L Serum Total Protein (6.3-8.2) g/dL Albumin (3.5-5.0) g/dL - Radiology Impressions Radiology Exams & Impressions: Radiology Procedures Category Date Time Status NECK WITH CONTRAST [CT] Stat Exams 12/06/23 18:59 Taken Assessment/Plan (1) Cellulitis Current Visit: Yes Status: Acute Qualifiers: Site of cellulitis: face Qualified Code(s): L03.211 - Cellulitis of face Assessment & Plan: Cellulitis of the left face (cheek and jaw). Continue IV antibiotics. Erythema border is marked and will follow clinical course. Code(s): L03.90 - CELLULITIS, UNSPECIFIED (2) CAD (coronary artery disease) Current Visit: Yes Status: Acute Assessment & Plan: Continue current regimen. No chest pain. Monitor on telemetry. Code(s): I25.10 - ATHSCL HEART DISEASE OF [place] CORONARY ARTERY W/O ANG PCTRS (3) Essential hypertension Current Visit: Yes Status: Acute Assessment & Plan: Continue current regimen. Monitor BP. Code(s): I10 - ESSENTIAL (PRIMARY) HYPERTENSION Telemedicine Encounter - Telemedicine Encounter Telemedicine Encounter: The entirety of this encounter was performed via Telemedicine"
[2023-12-06] MEDS: TYLENOL 325 MG PO PRN (23:27)
[2023-12-06] MEDS ORDERED: MORPHINE SULFATE 2 MG INJ IV PRN (23:47)
[2023-12-07] MEDS: NORCO 5/325 MG PO PRN (04:42)
[2023-12-07 05:15] LABS: Absolute Neutrophil Ct (ANC) 3.54 x10^3/uL (1.4-6.9); BASOPHIL % 1.1 % (0.0-0.4); Basophil (Absolute #) 0.07 x10^3/uL (0-0.4); Eosinophil % 2.2 % (0.00-5.0); Eosinophil (Absolute #) 0.14 x10^3/uL (0-0.5); Hematocrit 36.6 % (35-47); Hemoglobin 11.9 g/dL (12.0-16.0); IMMATURE GRAN # 0.03 x10^3u/L (0.00-0.03); IMMATURE GRAN % 0.5 % (0.00-0.4); Lymphocyte (Absolute #) 1.77 x10^3/uL (1.0-4.6); Lymphocytes % 27.2 % (24.0-44.0); Mean Cell Volume 95.3 fL (78-100); Mean Corpuscular Hgb Concent. 32.5 g/dL (32-36); Mean Platelet Volume 11.5 fL (7.5-11.0); Monocyte (Absolute #) 0.96 x10^3/uL (0.0-1.3); Monocytes % 14.7 % (0.0-12.0); Neutrophil % 54.3 % (36.0-66.0); Platelet Count 247 x10^3/uL (150-450); Red Blood Count 3.84 x10^6/uL (4.1-5.4); Red Cell Distribution Width 12.9 % (11.5-14.0); White Blood Count 6.5 x10^3/uL (4.0-10.5)
[2023-12-07 05:29] LABS: ANION GAP 12.8 MEQ/L (5-15); Calcium 8.9 mg/dL (8.4-10.2); Creatinine 1 0.69 mg/dL (0.52-1.04); EST GLOMERULAR FILTRATION RATE 101.8 ML/MIN; Potassium 3.8 mmol/L (3.5-5.1)
[2023-12-07] MEDS: VANCOMYCIN 1 GRAM/200 ML BAG 1 GM/200 ML PIGGYBACK IV SCH (08:33)
--- NOTE | 2023-12-07 08:35 | XRAY ---
Indication: Left cheek cellulitis. Pain and erythema. Multiple contiguous axial images obtained through the neck using 80 cc Isovue 370 contrast. Comparison: None Left jaw demonstrates mild cutaneous and subcutaneous induration favoring clinically reported cellulitis. No focal walled off fluid collection or subcutaneous emphysema. Prominent reactive left cervical lymph nodes, largest 1.1 x 1.5 cm just anterolateral to carotid bulb. Major arteries and veins are normal in course and caliber. Parotid and submandibular glands are bilaterally symmetric. Thyroid gland enhances homogeneously. Supra-and infraglottic airway widely patent. Normal epiglottis. Visualized osseous structures intact with mild C5-C7 degenerative changes. No acute fracture or suspicious bony lesions. Incidental multiple dental caries. Base of brain and lung apices unremarkable. Impression: Left mandible cellulitis with reactive cervical lymph nodes. No underlying abscess or osseous destructive process.
[2023-12-07] MEDS: MOTRIN 400 MG PO PRN (09:11)
[2023-12-07] MEDS: ASTELIN NASAL NS SCH (09:21)
[2023-12-07] MEDS: Acidophilus TABLET PO SCH (09:23)
[2023-12-07] MEDS: ZOCOR 20MG PO SCH (09:23)
[2023-12-07] MEDS: ECOTRIN 81 MG PO SCH (09:24)
[2023-12-07] MEDS: Toprol Xl 50 MG PO SCH (09:24)
[2023-12-07] MEDS: Zestril 10 MG PO SCH (09:24)
[2023-12-07] MEDS: Imdur 30 MG PO SCH (09:24)
[2023-12-07] MEDS: ENOXAPARIN SODIUM SQ SCH (09:24)
[2023-12-07] MEDS ORDERED: NON-FORMULARY ITEM (Pravastatin Sodium [Pravachol] 20 MG Tablet) PO SCH (10:00)
[2023-12-07] MEDS ORDERED: Zestril 5 MG PO SCH (10:00)
[2023-12-07] MEDS: Protonix 40MG Tablet PO SCH ×2 (10:32→21:21)
--- NOTE | 2023-12-07 11:30 | PCM.NOTE ---
Date and Time: 12/07/23 1125 Subjective Assessment: is a 58 year old female with a history of CAD, HTN and hyperlipidemia, who presented to the hospital on 12/06/23 with myalgias, malaise and left sided cheek and jaw pain. The patient started to note a left facial rash which began on the night prior to admission. She was noted to have a cellulitis of the face and antibiotics were initiated in the ED. She is able to open and close her left eye. She is able to open her mouth but feels it is limited. Edema and erythmea have improved overnight. BC x2 pending. She does not know anything that could have caused it. She has no new meds, no new foods, no new soaps or detergents. She does not think anything bit her. CT neck shows mandible cellulitis and reactive cervical lymph nodes. She denies CP, SOB, difficulty swallowing, Abd. pain, N/V/D. - Review of Systems Constitutional: No Fever, No Chills Eyes: No Symptoms Ears, Nose, & Throat: No Symptoms, Other (left sided edema and erythema- improved from yesterday) Respiratory: No Cough, No Short Of Breath Cardiac: No Chest Pain, No Edema, No Syncope Abdominal/Gastrointestinal: No Abdominal Pain, No Nausea, No Vomiting, No D iarrhea Genitourinary Symptoms: No Dysuria Musculoskeletal: No Back Pain, No Neck Pain Skin: No Rash Neurological: No Dizziness, No Focal Weakness, No Sensory Changes Psychological: No Symptoms Endocrine: No Symptoms Hematologic/Lymphatic: No Symptoms Immunological/Allergic: No Symptoms Objective Exam General Appearance: no apparent distress, alert, obese Neurologic Exam: alert, oriented x 3, cooperative, normal mood/affect, nml cerebellar function, sensation nml, No motor deficits Skin Exam: normal color, warm, dry, other (erythema and edema of left side of face and neck) Wound Assessment: Skin/Wound Assessment Wound/Incision Assessment Start: 12/06/23 22:17 Text: Status: Active Freq: Q6H Protocol: Document 12/07/23 08:00 [facility] (Rec: 12/07/23 10:18 [facility] [id number]) Wound Photo Photo Taken No Eye Exam: PERRL, EOMI, eyes nml inspection Ears, Nose, Throat Exam: normal ENT inspection, pharynx normal, moist mucous m embranes Neck Exam: normal inspection, non-tender, supple, full range of motion Respiratory Exam: normal breath sounds, lungs clear, No respiratory distress Cardiovascular Exam: regular rate/rhythm, normal heart sounds Gastrointestinal/Abdomen Exam: soft, No tenderness, No mass Extremity Exam: normal inspection, normal range of motion Back Exam: normal inspection, normal range of motion, No CVA tenderness, No vertebral tenderness Pelvic Exam: deferred Rectal Exam: deferred OBJECTIVE DATA Vital Signs: Vital Signs - 24 hr Temp Pulse Resp BP BP Pulse Ox 12/07/23 08:00 97.7 F 70 18 118/57 95 12/07/23 04:00 97.1 F 76 16 117/70 96 12/06/23 23:00 96 12/06/23 22:15 97.8 F 79 18 125/59 96 12/06/23 22:00 91 H 26 H 133/68 96 12/06/23 21:58 87 28 H 133/75 95 12/06/23 21:00 84 16 158/86 98 12/06/23 20:31 86 20 153/80 95 12/06/23 20:00 80 18 156/92 97 12/06/23 19:30 79 16 162/95 98 12/06/23 19:07 99 12/06/23 19:01 82 20 158/81 97 12/06/23 18:36 98.7 F 80 16 164/99 99 Pain Assessment - Last Documented Pain Intensity 6 Pain Scale Used 0-10 Pain Scale Intake and Output: Intake & Output 12/04/23 12/05/23 12/06/23 12/07/23 11:59 11:59 11:59 11:59 Intake Total 60 Balance 60 Weight 115.5 kg Lab Results: Lab Results-Last 24 Hours 12/06/23 12/06/23 12/06/23 Range/Units 18:43 18:55 18:55 WBC 8.3 (4.0-10.5) x10^3/uL RBC 4.16 (4.1-5.4) x10^6/uL Hgb 12.7 (12.0-16.0) g/dL Hct 38.8 (35-47) % MCV 93.3 (78-100) fL MCH 30.5 (26-32) pg MCHC 32.7 (32-36) g/dL RDW 12.7 (11.5-14.0) % Plt Count 261 (150-450) x10^3/uL MPV 11.6 H (7.5-11.0) fL Gran % 60.5 (36.0-66.0) % Immature Gran % (Auto) 0.5 H (0.00-0.4) % Nucleat RBC Rel Count 0.0 (0.00-0.1) % Eos # (Auto) 0.11 (0-0.5) x10^3/uL Immature Gran # (Auto) 0.04 H (0.00-0.03) x10^3u/L Absolute Lymphs (auto) 1.95 (1.0-4.6) x10^3/uL Absolute Monos (auto) 1.10 (0.0-1.3) x10^3/uL Absolute Nucleated RBC 0.00 (0.00-0.01) x10^3u/L Lymphocytes % 23.6 L (24.0-44.0) % Monocytes % 13.3 H (0.0-12.0) % Eosinophils % 1.3 (0.00-5.0) % Basophils % 0.8 (0.0-0.4) % Absolute Granulocytes 4.99 (1.4-6.9) x10^3/uL Basophils # 0.07 (0-0.4) x10^3/uL ESR 92 H (0-20) mm/hr Sodium 138 (137-145) mmol/L Potassium 3.4 L (3.5-5.1) mmol/L Chloride 105 (98-107) mmol/L Carbon Dioxide 22 (22-30) mmol/L Anion Gap 14.5 (5-15) MEQ/L BUN 10 (7-17) mg/dL Creatinine 0.63 (0.52-1.04) mg/dL Estimated GFR 104.1 ML/MIN Glucose 86 (74-106) mg/dL Lactic Acid (0.4-2.0) Calcium 9.4 (8.4-10.2) mg/dL Magnesium (1.6-2.3) mg/dL Total Bilirubin 0.90 (0.2-1.3) mg/dL AST 32 (14-36) U/L ALT 24 (0-35) U/L Alkaline Phosphatase 114 (38-126) U/L Serum Total Protein 7.7 (6.3-8.2) g/dL Albumin 4.1 (3.5-5.0) g/dL 12/06/23 12/07/23 12/07/23 Range/Units 19:01 04:30 04:30 WBC 6.5 (4.0-10.5) x10^3/uL RBC 3.84 L (4.1-5.4) x10^6/uL Hgb 11.9 L (12.0-16.0) g/dL Hct 36.6 (35-47) % MCV 95.3 (78-100) fL MCH 31.0 (26-32) pg MCHC 32.5 (32-36) g/dL RDW 12.9 (11.5-14.0) % Plt Count 247 (150-450) x10^3/uL MPV 11.5 H (7.5-11.0) fL Gran % 54.3 (36.0-66.0) % Immature Gran % (Auto) 0.5 H (0.00-0.4) % Nucleat RBC Rel Count 0.0 (0.00-0.1) % Eos # (Auto) 0.14 (0-0.5) x10^3/uL Immature Gran # (Auto) 0.03 (0.00-0.03) x10^3u/L Absolute Lymphs (auto) 1.77 (1.0-4.6) x10^3/uL Absolute Monos (auto) 0.96 (0.0-1.3) x10^3/uL Absolute Nucleated RBC 0.00 (0.00-0.01) x10^3u/L Lymphocytes % 27.2 (24.0-44.0) % Monocytes % 14.7 H (0.0-12.0) % Eosinophils % 2.2 (0.00-5.0) % Basophils % 1.1 (0.0-0.4) % Absolute Granulocytes 3.54 (1.4-6.9) x10^3/uL Basophils # 0.07 (0-0.4) x10^3/uL ESR (0-20) mm/hr Sodium 138 (137-145) mmol/L Potassium 3.8 (3.5-5.1) mmol/L Chloride 107 (98-107) mmol/L Carbon Dioxide 22 (22-30) mmol/L Anion Gap 12.8 (5-15) MEQ/L BUN 11 (7-17) mg/dL Creatinine 0.69 (0.52-1.04) mg/dL Estimated GFR 101.8 ML/MIN Glucose 81 (74-106) mg/dL Lactic Acid 1.0 (0.4-2.0) Calcium 8.9 (8.4-10.2) mg/dL Magnesium (1.6-2.3) mg/dL Total Bilirubin (0.2-1.3) mg/dL AST (14-36) U/L ALT (0-35) U/L Alkaline Phosphatase (38-126) U/L Serum Total Protein (6.3-8.2) g/dL Albumin (3.5-5.0) g/dL 12/07/23 Range/Units 04:30 WBC (4.0-10.5) x10^3/uL RBC (4.1-5.4) x10^6/uL Hgb (12.0-16.0) g/dL Hct (35-47) % MCV (78-100) fL MCH (26-32) pg MCHC (32-36) g/dL RDW (11.5-14.0) % Plt Count (150-450) x10^3/uL MPV (7.5-11.0) fL Gran % (36.0-66.0) % Immature Gran % (Auto) (0.00-0.4) % Nucleat RBC Rel Count (0.00-0.1) % Eos # (Auto) (0-0.5) x10^3/uL Immature Gran # (Auto) (0.00-0.03) x10^3u/L Absolute Lymphs (auto) (1.0-4.6) x10^3/uL Absolute Monos (auto) (0.0-1.3) x10^3/uL Absolute Nucleated RBC (0.00-0.01) x10^3u/L Lymphocytes % (24.0-44.0) % Monocytes % (0.0-12.0) % Eosinophils % (0.00-5.0) % Basophils % (0.0-0.4) % Absolute Granulocytes (1.4-6.9) x10^3/uL Basophils # (0-0.4) x10^3/uL ESR (0-20) mm/hr Sodium (137-145) mmol/L Potassium (3.5-5.1) mmol/L Chloride (98-107) mmol/L Carbon Dioxide (22-30) mmol/L Anion Gap (5-15) MEQ/L BUN (7-17) mg/dL Creatinine (0.52-1.04) mg/dL Estimated GFR ML/MIN Glucose (74-106) mg/dL Lactic Acid (0.4-2.0) Calcium (8.4-10.2) mg/dL Magnesium 2.0 (1.6-2.3) mg/dL Total Bilirubin (0.2-1.3) mg/dL AST (14-36) U/L ALT (0-35) U/L Alkaline Phosphatase (38-126) U/L Serum Total Protein (6.3-8.2) g/dL Albumin (3.5-5.0) g/dL Radiology Exams: Radiology Procedures Category Date Time Status NECK WITH CONTRAST [CT] Stat Exams 12/06/23 18:59 Completed Assessment/Plan (1) Cellulitis Current Visit: Yes Status: Acute Qualifiers: Site of cellulitis: face Qualified Code(s): L03.211 - Cellulitis of face Assessment & Plan: - Rocephin and vancomycin - sxs improved today - stop norco for pain causing itching - Pt requesting IBP Code(s): L03.90 - CELLULITIS, UNSPECIFIED (2) CAD (coronary artery disease) Current Visit: Yes Status: Acute Assessment & Plan: -Continue current regimen. - No chest pain. - Monitor on telemetry. Code(s): I25.10 - ATHSCL HEART DISEASE OF [place] CORONARY ARTERY W/O ANG PCTRS (3) Essential hypertension Current Visit: Yes Status: Acute Assessment & Plan: -Continue current regimen. - Monitor BP. Code(s): I10 - ESSENTIAL (PRIMARY) HYPERTENSION (4) Morbid obesity with BMI of 45.0-49.9, adult Current Visit: Yes Status: Acute Assessment & Plan: - advised diet and exercise control VTE: Lovenox PPI: pantoprazole Next of KIN: Claudia Jimenez [phone] D/c plan: tomorrow Code(s): E66.01 - MORBID (SEVERE) OBESITY DUE TO EXCESS CALORIES; Z68.42 - BODY MASS INDEX [BMI] 45.0-49.9, ADULT
[2023-12-07] MEDS: Sodium Chloride 0.9% 500 ML 500 ML IV ONE (12:30)
[2023-12-07] MEDS: ROCEPHIN 1 GM / 100 ML NaCl 1 GM/100 ML IVPB IV SCH (21:22)
[2023-12-08 05:29] LABS: Hematocrit 34.4 % (35-47); Hemoglobin 10.7 g/dL (12.0-16.0); Mean Cell Volume 98.3 fL (78-100); Mean Corpuscular Hemoglobin 30.6 pg (26-32); Mean Corpuscular Hgb Concent. 31.1 g/dL (32-36); Mean Platelet Volume 11.4 fL (7.5-11.0); Platelet Count 230 x10^3/uL (150-450); Red Cell Distribution Width 13.1 % (11.5-14.0); White Blood Count 5.5 x10^3/uL (4.0-10.5)
[2023-12-08] MEDS: TROUGH DRUG LEVELS IJ ONE (05:43)
[2023-12-08 06:32] LABS: ALBUMIN 3.1 g/dL (3.5-5.0); ANION GAP 11.2 MEQ/L (5-15); BILIRUBIN,TOTAL 0.3 mg/dL (0.2-1.3); Calcium 8.5 mg/dL (8.4-10.2); Creatinine 1 0.83 mg/dL (0.52-1.04); EST GLOMERULAR FILTRATION RATE 82.7 ML/MIN; Potassium 3.9 mmol/L (3.5-5.1); Total Protein 6.1 g/dL (6.3-8.2)
[2023-12-08 07:35] VITALS: RESP 16
[2023-12-08 12:06] VITALS: BP 101/53; PULSE 64; TEMP 97.5; O2SAT 100
--- NOTE | 2023-12-08 12:38 | PCM.DS ---
Discharge Summary Date of Admission: 12/06/23 22:08 Date of Discharge: 12/08/23 Admitting Physician: EDVIN VILLAR MD Primary Care Provider: SARAY COMBS Allergies Allergies mushroom Allergy (Severe, Verified 12/06/23 22:33) throat swelling tetracycline [Tetracycline] Allergy (Mild, Verified 12/06/23 22:33) Itching Hospital Summary - Hospital Course Hospital Course: 12/07/23 is a 58 year old female with a history of CAD, HTN and hyperli pidemia, who presented to the hospital on 12/06/23 with myalgias, malaise and left sided cheek and jaw pain. The patient started to note a left facial rash which began on the night prior to admission. She was noted to have a cellulitis of the face and antibiotics were initiated in the ED. She is able to open and close her left eye. She is able to open her mouth but feels it is limited. Edema and erythmea have improved overnight. BC x2 pending. She does not know anything that could have caused it. She has no new meds, no new foods, no new soaps or detergents. She does not think anything bit her. CT neck shows mandible cellulitis and reactive cervical lymph nodes. She denies CP, SOB, difficulty swallowing, Abd. pain, N/V/D. 12/08/23 Pt resting in bed. She explains she has a headache this AM. Facial edema and erythema have resolved. She would like to go home today. She denies any further concerns at this time. - Vitals & Intake/Output Vital Signs: Vital Signs Temperature 97.5 F 12/08/23 12:00 Pulse Rate 64 12/08/23 12:00 Respiratory Rate 16 12/08/23 12:00 Blood Pressure 101/53 12/08/23 12:00 O2 Sat by Pulse Oximetry 100 12/08/23 12:00 Intake & Output: Intake & Output 12/06/23 12/07/23 12/08/23 12/09/23 11:59 11:59 11:59 11:59 Intake Total 60 3916 Output Total 400 Balance 60 3516 Weight 115.5 kg - Lab Result Diagrams: 12/08/23 05:15 12/08/23 05:15 Lab Results-Last 24 Hrs: Lab Results-Last 24 Hours 12/06/23 12/08/23 12/08/23 Range/Units 18:55 05:15 05:15 WBC 5.5 (4.0-10.5) x10^3/uL RBC 3.50 L (4.1-5.4) x10^6/uL Hgb 10.7 L (12.0-16.0) g/dL Hct 34.4 L (35-47) % MCV 98.3 (78-100) fL MCH 30.6 (26-32) pg MCHC 31.1 L (32-36) g/dL RDW 13.1 (11.5-14.0) % Plt Count 230 (150-450) x10^3/uL MPV 11.4 H (7.5-11.0) fL Sodium (137-145) mmol/L Potassium (3.5-5.1) mmol/L Chloride (98-107) mmol/L Carbon Dioxide (22-30) mmol/L Anion Gap (5-15) MEQ/L BUN (7-17) mg/dL Creatinine (0.52-1.04) mg/dL Estimated GFR ML/MIN Glucose (74-106) mg/dL Calcium (8.4-10.2) mg/dL Total Bilirubin (0.2-1.3) mg/dL AST (14-36) U/L ALT (0-35) U/L Alkaline Phosphatase (38-126) U/L C-Reactive Prot, Quant 59 H (0-10) mg/L Serum Total Protein (6.3-8.2) g/dL Albumin (3.5-5.0) g/dL Vancomycin Trough 21.34 H (10-20) ug/mL 12/08/23 Range/Units 05:15 WBC (4.0-10.5) x10^3/uL RBC (4.1-5.4) x10^6/uL Hgb (12.0-16.0) g/dL Hct (35-47) % MCV (78-100) fL MCH (26-32) pg MCHC (32-36) g/dL RDW (11.5-14.0) % Plt Count (150-450) x10^3/uL MPV (7.5-11.0) fL Sodium 140 (137-145) mmol/L Potassium 3.9 (3.5-5.1) mmol/L Chloride 114 H (98-107) mmol/L Carbon Dioxide 19 L (22-30) mmol/L Anion Gap 11.2 (5-15) MEQ/L BUN 18 H (7-17) mg/dL Creatinine 0.83 (0.52-1.04) mg/dL Estimated GFR 82.7 ML/MIN Glucose 88 (74-106) mg/dL Calcium 8.5 (8.4-10.2) mg/dL Total Bilirubin 0.30 (0.2-1.3) mg/dL AST 30 (14-36) U/L ALT 20 (0-35) U/L Alkaline Phosphatase 97 (38-126) U/L C-Reactive Prot, Quant (0-10) mg/L Serum Total Protein 6.1 L (6.3-8.2) g/dL Albumin 3.1 L (3.5-5.0) g/dL Vancomycin Trough (10-20) ug/mL Micro Results-Entire Visit: Microbiology 12/06/23 18:55 Blood Culture - Preliminary Blood 12/06/23 19:09 Blood Culture - Preliminary Blood - Radiology Exams Ordered Rad Exams-Entire Visit: Radiology Procedures Category Date Time Status NECK WITH CONTRAST [CT] Stat Exams 12/06/23 18:59 Completed - Procedures and Test Procedures and Tests throughout Hospitalization: Therapy Orders & Screens 12/06/23 22:33 OT Screen per Nursing Assess ONCE Comment: Protocol Order Physician Instructions: Greater than 3 points order OT Admission Screening Reason For Exam: Triggered on Admission Diagnosis: Left facial cellulitis Open Wound/Cellutlitis/Pressure Ulcers: Yes: cellulitis to face Acute Fx/ORIF/Change in wt bearing status: No Severe MUSCULOSKELETAL pain: No ADL Dysfunction: No Acute CVA w/Hemiparesis/Hemiplegia: No Decreased Functional Mobility/Strength: No Sprain/Strain: No Acute Post-op Mobility Dysfunction: No Total Points: 5 PT Screen per Nursing Assess ONCE Comment: Protocol Order Physician Instructions: Greater than 3 points order PT Admission Screenin Reason For Exam: Triggered on Admission Diagnosis: Left facial cellulitis Open Wound/Cellutlitis/Pressure Ulcers: Yes: cellulitis to face Acute Fx/ORIF/Change in wt bearing status: No Severe MUSCULOSKELETAL pain: No ADL Dysfunction: No Acute CVA w/Hemiparesis/Hemiplegia: No Decreased Functional Mobility/Strength: No Sprain/Strain: No Acute Post-op Mobility Dysfunction: No Total Points: 5 Discharge Exam General Appearance: no apparent distress, alert Neurologic Exam: alert, oriented x 3, cooperative, normal mood/affect, nml cerebellar function, sensation nml, No motor deficits Eye Exam: PERRL, EOMI, eyes nml inspection Ears, Nose, Throat Exam: normal ENT inspection, pharynx normal, moist mucous membranes Neck Exam: normal inspection, non-tender, supple, full range of motion Respiratory Exam: normal breath sounds, lungs clear, No respiratory distress Cardiovascular Exam: regular rate/rhythm, normal heart sounds Gastrointestinal/Abdomen Exam: soft, No tenderness, No mass Pelvic Exam: deferred Rectal Exam: deferred Back Exam: normal inspection, normal range of motion, No CVA tenderness, No v ertebral tenderness Extremity Exam: normal inspection, normal range of motion Skin Exam: normal color, warm, dry Wound Assessment: Skin/Wound Assessment Wound/Incision Assessment Start: 12/06/23 22:17 Text: Status: Active Freq: Q6H Protocol: Document 12/08/23 08:00 EK (Rec: 12/08/23 08:54 EK [id number]) Wound/Incision Assessment Left Face Wound Assessment Shift Assessment Wound Type Cellulitis Wound Stage Non Pressure Wound Drainage Amount None Drainage Odor None/Absent Comment Margins marked- appears to be improving Final Diagnosis/Problem List - Final Discharge Diagnosis/Problem (1) Cellulitis Current Visit: Yes Status: Acute Code(s): L03.90 - CELLULITIS, UNSPECIFIED (2) CAD (coronary artery disease) Current Visit: Yes Status: Acute Code(s): I25.10 - ATHSCL HEART DISEASE OF [place] CORONARY ARTERY W/O ANG PCTRS (3) Essential hypertension Current Visit: Yes Status: Acute Code(s): I10 - ESSENTIAL (PRIMARY) HYPERTENSION (4) Morbid obesity with BMI of 45.0-49.9, adult Current Visit: Yes Status: Acute Assessment & Plan: 1) Cellulitis Current Visit: Yes Status: Acute Qualifiers: Site of cellulitis: face Qualified Code(s): L03.211 - Cellulitis of face Assessment & Plan: - Rocephin and vancomycin - sxs improved today - stop norco for pain causing itching - Pt requesting IBP 12/08 - resolved Code(s): L03.90 - CELLULITIS, UNSPECIFIED (2) CAD (coronary artery disease) Current Visit: Yes Status: Acute Assessment & Plan: -Continue current regimen. - No chest pain. - Monitor on telemetry. Code(s): I25.10 - ATHSCL HEART DISEASE OF [place] CORONARY ARTERY W/O ANG PCTRS (3) Essential hypertension Current Visit: Yes Status: Acute Assessment & Plan: -Continue current regimen. - Monitor BP. Code(s): I10 - ESSENTIAL (PRIMARY) HYPERTENSION (4) Morbid obesity with BMI of 45.0-49.9, adult Current Visit: Yes Status: Acute Assessment & Plan: - advised diet and exercise control Code(s): E66.01 - MORBID (SEVERE) OBESITY DUE TO EXCESS CALORIES; Z68.42 - BODY MASS INDEX [BMI] 45.0-49.9, ADULT - Discharge Discharge Date: 12/08/23 Disposition: Home, Self-Care Condition: Stable Prescriptions: Continue PANTOPRAZOLE 40 mg Tablet [Protonix 40MG Tablet] 40 mg PO HS Pravastatin Sodium [Pravachol] 40 mg PO DAILY Lisinopril 5 mg [Zestril 5 MG] 10 mg PO DAILY Aspirin EC 81 mg [Ecotrin 81 mg] 1 tab PO DAILY Metoprolol Succinate 50 mg [Toprol Xl 50 MG] 50 mg PO DAILY Isosorbide Mononitrate [Isosorbide Mononitrate ER] 30 mg PO DAILY Azelastine Nasal [Astelin Nasal] 30 ml NS BID Instructions: Cellulitis (Skin Infection), Adult (DC) Follow up with: SARAY COMBS NP [Primary Care Provider] - 12/20/23 10:30 am Forms: Discharge Instructions
[2023-12-08] MEDS ORDERED: VANCOMYCIN 1 GRAM/200 ML BAG 1 GM/200 ML PIGGYBACK IV SCH (22:00)
[2023-12-10] MEDS ORDERED: TROUGH DRUG LEVELS IJ ONE (09:30)
== END 2023-12-08 13:22 | disposition home or self-care (01) ==
LOC: ED 18:19 → MED SURG 22:08
PROVIDERS: ADMIT Internal Medicine; ATTEND Internal Medicine
DX: L03.211 Cellulitis of face (principal); I25.10 Atherosclerotic heart disease of native coronary artery without angina pectoris; I10 Essential (primary) hypertension; E78.5 Hyperlipidemia, unspecified; R51.9 Headache, unspecified; E66.01 Morbid (severe) obesity due to excess calories; Z68.42 Body mass index [BMI] 45.0-49.9, adult; Z79.899 Other long term (current) drug therapy; Z20.828 Contact with and (suspected) exposure to other viral communicable diseases
CPT/HCPCS: 36000; 36415; 70491; 80048; 80053; 80202; 83605; 83735; 85025; 85027; 85652; 86140; 87040; 96374; 96375; 99285; Q3014; 93268; J0696; J1650; J2270; J2405; A9270-GY; G0378; J3370

== ENCOUNTER 2024-01-15 22:43 | Emergency (ER) | payer BC ==
[2024-01-15 23:05] VITALS: RESP 18; TEMP 96.9
--- NOTE | 2024-01-16 01:02 | ERPHSYRPT ---
- History of Present Illness Time Seen by Provider: 01/15/24 23:10 Source: patient Exam Limitations: no limitations Patient Subjective Stated Complaint: pt states that she fell going up the stairs Triage Nursing Assessment: ambulated into the er; pt is axo x4; c/o fall; pt states 8/10 pain to LUE, left elbow, left hip; abraison present to left elbow; decreased ROM to LUE; strong left radial pulse; bruising present to left elbow; good cap refill to LUE; no shortening or rotation present LLE; no respiratory distress present; skin PDW; vitals wnl Physician History: Pt states about 2.5 hours ago she was stepping up on her patio, lost consciousness & fell on concrete with nausea and pain in her left elbow, left shoulder, left arm and left hip. Pt denies chest pain, abdominal pain, vomiting. Allergies/Adverse Reactions: mushroom Allergy (Severe, Verified 01/15/24 22:52) throat swelling tetracycline [Tetracycline] Allergy (Mild, Verified 01/15/24 22:52) Itching Home Medications: PANTOPRAZOLE 40 mg Tablet [Protonix 40MG Tablet] 40 mg PO HS 03/02/12 [History] Pravastatin Sodium [Pravachol] 40 mg PO DAILY 04/14/19 [History] Azelastine Nasal [Astelin Nasal] 30 ml NS BID 12/06/23 [History] Ergocalciferol (Vitamin D2) [Vitamin D2] 1,250 mcg PO WEEKLY 01/15/24 [History] Hydroxyzine HCl 25 mg [Atarax 25 mg] 25 mg PO DAILY 01/15/24 [History] Meloxicam 7.5 mg PO DAILY 01/15/24 [History] Potassium Chloride 20 meq PO DAILY 01/15/24 [History] Vilazodone HCl 10 mg PO DAILY 01/15/24 [History] Hx Tetanus, Diphtheria Vaccination/Date Given: Yes Hx Influenza Vaccination/Date Given: No Hx Pneumococcal Vaccination/Date Given: No Immunizations Up to Date: No Travel Risk - International Travel Have you traveled outside of the country in past 3 weeks: No - Emerging Infectious Disease Are you exhibiting symptoms associated with any current EIDs: No - Review of Systems Constitutional: No Fever Respiratory: No Dyspnea Cardiac: No Chest Pain Abdominal/Gastrointestinal: Nausea, No Abdominal Pain, No Vomiting Genitourinary Symptoms: No Dysuria Musculoskeletal: Other (pain in left shoulder, arm, elbow & hip.) Neurological: No Headache, No Seizure - Past Medical History Pertinent Past Medical History: Yes Neurological History: Migraines ENT History: No Pertinent History Cardiac History: Coronary Artery Disease, High Cholesterol, Hypertension Respiratory History: No Pertinent History Endocrine Medical History: Other Musculoskeletal History: Arthritis, Osteoarthritis GI Medical History: GERD, Gallbladder Disease, Other History: No Pertinent History Psycho-Social History: Depression Female Reproductive Disorders: No Pertinent History Other Medical History: Fatty liver - Past Surgical History Past Surgical History: Yes Neuro Surgical History: No Pertinent History Cardiac: No Pertinent History Respiratory: No Pertinent History Gastrointestinal: Cholecystectomy, Exploratory Laparoscopy Genitourinary: No Pertinent History Musculoskeletal: No Pertinent History Female Surgical History: No Pertinent History Other Surgical History: artery biopsy Significant Family History: no pertinent family hx - Social History Smoking Status: Never smoker Exposure to second hand smoke: Yes Drug Use: none Patient Lives Alone: No - Nursing Vital Signs Nursing Vital Signs: Initial Vital Signs Temperature 96.9 F 01/15/24 22:57 Pulse Rate 83 01/15/24 22:57 Respiratory Rate 18 01/15/24 22:57 Blood Pressure 161/83 01/15/24 22:57 O2 Sat by Pulse Oximetry 97 01/15/24 22:57 Pain Scale Pain Intensity 8 - Physical Exam General Appearance: alert Head Injury: no evidence of injury, No swelling Eye Exam: PERRL/EOMI, eyes nml inspection ENT Exam: airway nml, hearing grossly normal Neck Exam: trachea midline, normal inspection, No pain on movement of neck, No mid-line tenderness Respiratory/Chest Exam: normal breath sounds Cardiovascular Exam: normal heart sounds Gastrointestinal Exam: normal bowel sounds Back Exam: No vertebral tenderness Extremity Exam: tenderness (mild tenderness over left hip without bruising, mild tenderness over left shoulder, arm & elbow. ) Neurologic Exam: alert, oriented x 3, cooperative, sensation nml Skin Exam: abrasion (small left elbow abrasion posteriorly), No cyanosis SpO2 Interpretation: normal SpO2: 97 O2 Delivery: Room Air - Course Nursing assessment & vital signs reviewed: Yes EKG Interpreted by Me: RATE (74), Sinus Rhythm, Right Bundle Branch Block, Other (QTc = 448) - Radiology Exams Left Elbow X-ray Interpretation: Interpreted by me, No Fracture Pelvis X-ray Interpretation: Interpreted by me, No Fracture Left Femur X-ray Interpretation: Interpreted by me, No Fracture Chest X-ray Interpretation: Interpreted by me, No Pneumonia Left Humerus X-ray Interpretation: Teleradiologist Report, No Fracture Left Shoulder X-ray Interpretation: Teleradiologist Report, No Fracture - CT Exams Head CT Interpretation: Tele-radiologist Report (Comparison 03/14/2021: Left centrum semiovale deep white matter chronic microvascular ischemia(stable). No intra or extra-axial hematomas or parenchymal territorial hyopodense areas suggestive of acute ischemic insult.) Ordered Tests: Active Orders 24 hr Category Date Time Status EKG-ER Only STAT Care 01/16/24 01:04 Active IV Insertion STAT Care 01/16/24 01:04 Active Sling Application STAT Care 01/16/24 04:12 Active Wound Care STAT Care 01/16/24 01:06 Active CHEST 1 VIEW (PORTABLE) Stat Exams 01/16/24 01:05 Taken ELBOW (MINIMUM 3 VIEWS) Stat Exams 01/16/24 01:07 Taken FEMUR Stat Exams 01/16/24 01:08 Taken HEAD WITHOUT CONTRAST [CT] Stat Exams 01/16/24 01:09 Completed HUMERUS Stat Exams 01/16/24 01:08 Completed PELVIS (1 OR 2 VIEWS) Stat Exams 01/16/24 01:08 Taken SHOULDER Stat Exams 01/16/24 01:07 Completed AMYLASE Stat Lab 01/16/24 01:20 Completed CBC W DIFF Stat Lab 01/16/24 01:20 Completed CMP Stat Lab 01/16/24 01:20 Completed LIPASE Stat Lab 01/16/24 01:20 Completed MAGNESIUM Stat Lab 01/16/24 01:20 Completed TROPONIN Q4H Lab 01/16/24 01:20 Completed TROPONIN Q4H Lab 01/16/24 05:15 Ordered TROPONIN Q4H Lab 01/16/24 09:15 Ordered UA W/RFX UR CULTURE Stat Lab 01/16/24 01:05 Ordered Medication Summary Generic Name Dose Route Start Last Admin Trade Name Freq PRN Reason Stop Dose Admin Sodium Chloride 1,000 mls @ 100 mls/hr 01/16/24 01:15 01/16/24 01:27 Sodium Chloride 0.9% 1000 Ml IV 02/15/24 01:14 100 mls/hr .Q10H JOHANNE Administration Lab/Rad Data: Laboratory Result Diagrams 01/16/24 01:20 01/16/24 01:20 Laboratory Results 01/16/24 01/16/24 01/16/24 Range/Units 01:20 01:20 01:20 WBC (4.0-10.5) x10^3/uL RBC (4.1-5.4) x10^6/uL Hgb (12.0-16.0) g/dL Hct (35-47) % MCV (78-100) fL MCH (26-32) pg MCHC (32-36) g/dL RDW (11.5-14.0) % Plt Count (150-450) x10^3/uL MPV (7.5-11.0) fL Gran % (36.0-66.0) % Immature Gran % (Auto) (0.00-0.4) % Nucleat RBC Rel Count (0.00-0.1) % Eos # (Auto) (0-0.5) x10^3/uL Immature Gran # (Auto) (0.00-0.03) x10^3u/L Absolute Lymphs (auto) (1.0-4.6) x10^3/uL Absolute Monos (auto) (0.0-1.3) x10^3/uL Absolute Nucleated RBC (0.00-0.01) x10^3u/L Lymphocytes % (24.0-44.0) % Monocytes % (0.0-12.0) % Eosinophils % (0.00-5.0) % Basophils % (0.0-0.4) % Absolute Granulocytes (1.4-6.9) x10^3/uL Basophils # (0-0.4) x10^3/uL Sodium 140 (135-145) mmol/L Potassium 3.7 (3.5-5.1) mmol/L Chloride 111 H (98-107) mmol/L Carbon Dioxide 21 L (22-30) mmol/L Anion Gap 11.9 (5-15) MEQ/L BUN 21 H (7-17) mg/dL Creatinine 0.74 (0.52-1.04) mg/dL Estimated GFR 94.9 ML/MIN Glucose 109 H (74-106) mg/dL Calcium 8.8 (8.4-10.2) mg/dL Magnesium 2.2 (1.6-2.3) mg/dL Total Bilirubin 0.20 (0.2-1.3) mg/dL AST 31 (14-36) U/L ALT 22 (0-35) U/L Alkaline Phosphatase 74 (38-126) U/L Troponin I 0.013 (0.000-0.033) ng/mL Serum Total Protein 7.4 (6.3-8.2) g/dL Albumin 3.7 (3.5-5.0) g/dL Amylase 79 (30-110) U/L Lipase 97 (23-300) U/L 01/16/24 Range/Units 01:20 WBC 5.8 (4.0-10.5) x10^3/uL RBC 4.21 (4.1-5.4) x10^6/uL Hgb 12.9 (12.0-16.0) g/dL Hct 39.1 (35-47) % MCV 92.9 (78-100) fL MCH 30.6 (26-32) pg MCHC 33.0 (32-36) g/dL RDW 12.0 (11.5-14.0) % Plt Count 268 (150-450) x10^3/uL MPV 11.5 H (7.5-11.0) fL Gran % 40.3 (36.0-66.0) % Immature Gran % (Auto) 0.2 (0.00-0.4) % Nucleat RBC Rel Count 0.0 (0.00-0.1) % Eos # (Auto) 0.27 (0-0.5) x10^3/uL Immature Gran # (Auto) 0.01 (0.00-0.03) x10^3u/L Absolute Lymphs (auto) 2.26 (1.0-4.6) x10^3/uL Absolute Monos (auto) 0.81 (0.0-1.3) x10^3/uL Absolute Nucleated RBC 0.00 (0.00-0.01) x10^3u/L Lymphocytes % 39.2 (24.0-44.0) % Monocytes % 14.0 H (0.0-12.0) % Eosinophils % 4.7 (0.00-5.0) % Basophils % 1.6 (0.0-0.4) % Absolute Granulocytes 2.33 (1.4-6.9) x10^3/uL Basophils # 0.09 (0-0.4) x10^3/uL Sodium (135-145) mmol/L Potassium (3.5-5.1) mmol/L Chloride (98-107) mmol/L Carbon Dioxide (22-30) mmol/L Anion Gap (5-15) MEQ/L BUN (7-17) mg/dL Creatinine (0.52-1.04) mg/dL Estimated GFR ML/MIN Glucose (74-106) mg/dL Calcium (8.4-10.2) mg/dL Magnesium (1.6-2.3) mg/dL Total Bilirubin (0.2-1.3) mg/dL AST (14-36) U/L ALT (0-35) U/L Alkaline Phosphatase (38-126) U/L Troponin I (0.000-0.033) ng/mL Serum Total Protein (6.3-8.2) g/dL Albumin (3.5-5.0) g/dL Amylase (30-110) U/L Lipase (23-300) U/L - Progress Progress: improved Counseled pt/family regarding: lab results, diagnosis, need for follow-up, rad results Medical Desision Making - Diagnostic Testing Diagnostic test were ordered, analyzed, and reviewed by me: Yes Radiological Interpretation: Interpreted by me, Teleradiologist Report - Departure Departure Disposition: Home Clinical Impression: Syncope, Fall, Abrasion to left elbow, left shoulder sprain, Pain in left arm, Left hip pain Condition: Stable Critical Care Time: No Referrals: SARAY COMBS NP [Primary Care Provider] - Follow up/PCP as directed Additional Instructions: Follow up with private doctor today. Wear left arm sling as needed. Do not drive until cleared by your private doctor. Apply neosporin & bandage daily to left elbow abrasion until healed. Take tylenol as needed for pain.
[2024-01-16 01:23] LABS: Absolute Neutrophil Ct (ANC) 2.33 x10^3/uL (1.4-6.9); BASOPHIL % 1.6 % (0.0-0.4); Basophil (Absolute #) 0.09 x10^3/uL (0-0.4); Eosinophil % 4.7 % (0.00-5.0); Eosinophil (Absolute #) 0.27 x10^3/uL (0-0.5); Hematocrit 39.1 % (35-47); Hemoglobin 12.9 g/dL (12.0-16.0); IMMATURE GRAN # 0.01 x10^3u/L (0.00-0.03); IMMATURE GRAN % 0.2 % (0.00-0.4); Lymphocyte (Absolute #) 2.26 x10^3/uL (1.0-4.6); Lymphocytes % 39.2 % (24.0-44.0); Mean Cell Volume 92.9 fL (78-100); Mean Corpuscular Hemoglobin 30.6 pg (26-32); Mean Platelet Volume 11.5 fL (7.5-11.0); Monocyte (Absolute #) 0.81 x10^3/uL (0.0-1.3); Neutrophil % 40.3 % (36.0-66.0); Platelet Count 268 x10^3/uL (150-450); Red Blood Count 4.21 x10^6/uL (4.1-5.4); White Blood Count 5.8 x10^3/uL (4.0-10.5)
[2024-01-16] MEDS ORDERED: Sodium Chloride 0.9% 1000 ML 1,000 ML ONE (01:26)
[2024-01-16] MEDS: Sodium Chloride 0.9% 1000 ML 1,000 ML IV SCH (01:27)
[2024-01-16 01:36] LABS: ALBUMIN 3.7 g/dL (3.5-5.0); ANION GAP 11.9 MEQ/L (5-15); BILIRUBIN,TOTAL 0.2 mg/dL (0.2-1.3); Calcium 8.8 mg/dL (8.4-10.2); Creatinine 1 0.74 mg/dL (0.52-1.04); EST GLOMERULAR FILTRATION RATE 94.9 ML/MIN; Potassium 3.7 mmol/L (3.5-5.1); Total Protein 7.4 g/dL (6.3-8.2)
--- NOTE | 2024-01-16 02:59 | XRAY ---
CLINICAL HISTORY: syncope COMPARISON: 03/14/2021. TECHNIQUE: Axial noncontrast CT scan of the brain was performed from the skull base to the high parietal region was performed without contrast. One of the following dose reduction techniques was utilized for this exam: Automated exposure control, adjustment of the mA and/or kV according to patient size, and use of iterative reconstruction. FINDINGS: A few small hypodense foci are noted at the left centrum semiovale white matter. Otherwise, the visualized brain parenchyma shows a normal appearance. Barrett-white matter differentiation is maintained. Normal CT appearance of the posterior fossa structures namely the cerebellar hemispheres, brainstem, and cerebellar peduncles. No intracerebral or extra-axial hematoma. No midline shifts or deformity. Normal size and configuration of the cerebral ventricles No definite calvarial fractures. The osseous structures in the skull base are unremarkable. Scanned paranasal sinuses show focal mucosal thickening of the maxillary antra with right-side nasal septum deviation. IMPRESSION: 1. Left centrum semiovale deep white matter chronic microvascular ischemia (stable). 2. No intra or extra-axial hematomas or parenchymal territorial hypodense areas suggestive of acute ischemic insult. Electronically Signed by: Ankur Persaud MD. (01/16/2024 02:55:51 EDT)
[2024-01-16 03:13] VITALS: O2SAT 97
--- NOTE | 2024-01-16 04:12 | XRAY ---
CLINICAL HISTORY: pain COMPARISON: None TECHNIQUE: X-ray left shoulder showing 3 views: AP external rotation, AP internal rotation and Y views. FINDINGS: No evidence of fracture or dislocation is noted. Reduced bone density is seen. Mild acromioclavicular joint osteoarthritis is seen. Soft tissues appear unremarkable. IMPRESSION: 1. Osteopenia and mild acromioclavicular joint osteoarthritis. 2. No acute osseous abnormality is seen in left shoulder. DISCLAIMER:A subtle bone abnormality or fracture may not be readily apparent on x-rays, thus clinical correlation and further imaging including follow up CT, MRI, or follow up x-rays are advised as needed Electronically Signed by: Ankur Persaud MD. (01/16/2024 04:07:18 EDT)
--- NOTE | 2024-01-16 04:12 | XRAY ---
CLINICAL HISTORY: pain COMPARISON: None. TECHNIQUE: X-ray of left humerus, AP, and lateral views. FINDINGS: Reduced bone density is seen. Intact visualized joint spaces. No definite fracture line or subluxation is seen. No significant soft tissue swelling is seen. IMPRESSION: 1. Osteopenia. 2. No other significant abnormality was seen in the x-ray left humerus. DISCLAIMER:A subtle bone abnormality or fracture may not be readily apparent on x-rays, thus clinical correlation and further imaging including follow-up CT, MRI, or follow-up x-rays are advised as needed. Electronically Signed by: Ankur Persaud MD. (01/16/2024 04:08:24 EDT)
[2024-01-16 04:21] VITALS: BP 149/89; PULSE 67
--- NOTE | 2024-01-16 08:02 | XRAY ---
Indication: Pain following fall. Comparison: None 3 view left elbow demonstrates osteopenia and tiny spurring olecranon process. No other bony, articular, or soft tissue abnormalities.
--- NOTE | 2024-01-16 08:02 | XRAY ---
Indication: Pain following fall. Comparison: None 2 view left femur demonstrates osteopenia, moderate tricompartmental knee degenerative changes, small fabella, and tiny spurring greater trochanter. No other bony, articular, or soft tissue abnormalities.
--- NOTE | 2024-01-16 08:04 | XRAY ---
Indication: Pain following fall. Comparison: None Single AP pelvis demonstrates osteopenia and lower lumbar degenerative spondylosis. No other bony, articular, or soft tissue abnormalities.
--- NOTE | 2024-01-16 08:04 | XRAY ---
Indication: Syncope. Comparison: October 26, 2023 Portable chest again demonstrates right mid lung nodule further detailed on CT chest October 26, 2023. Remaining heart and lungs normal. Bony thorax intact with osteopenia and degenerative changes. No new/acute findings.
== END 2024-01-16 04:40 | disposition home or self-care (01) ==
LOC: ED 22:43
DX: R55 Syncope and collapse (principal); S50.312A Abrasion of left elbow, initial encounter; S43.402A Unspecified sprain of left shoulder joint, initial encounter; W10.8XXA Fall (on) (from) other stairs and steps, initial encounter; Y92.007 Garden or yard of unspecified non-institutional (private) residence as the place of occurrence of the external cause; M79.602 Pain in left arm; M25.552 Pain in left hip; R11.0 Nausea; E78.5 Hyperlipidemia, unspecified; I10 Essential (primary) hypertension; Z79.899 Other long term (current) drug therapy
CPT/HCPCS: 36000; 36415; 70450; 71045; 72170; 73030; 73060; 73080; 73552; 80053; 82150; 83690; 83735; 84484; 85025; 93005; 99284

== ENCOUNTER 2024-08-28 21:45 | Emergency (ER) | payer BC ==
[2024-08-28 22:04] VITALS: TEMP 97.5
[2024-08-28] MEDS ORDERED: NORCO 5/325 MG ONE (22:19)
[2024-08-28] MEDS: NORCO 5/325 MG PO ONE (22:21)
--- NOTE | 2024-08-28 22:24 | ERPHSYRPT ---
- History of Present Illness Source: patient Exam Limitations: no limitations Patient Subjective Stated Complaint: Pt reports she fell getting into chair landing on left hip on Wednesday08/26/24 and pain feels as if its getting a little worse. Triage Nursing Assessment: Pt alert and oriented x3. Respirations easy/nonlabored. Pt does not appear to be in any distress. Skin w/p/d. Ambulated to ED cot with limp. Small bruise to left knee. No obvious deformities. Physician History: Patient has left hip pain. She slipped out of a chair and landed on the ground. She has pain in the hip. Movement of the hip with flexion and internal and external rotation makes it worse. She is not able to ambulate because of pain. She has no other trauma. She has no other pains or complaints. She fell because she slipped. There is no syncope or loss of consciousness or anything like that. Occurred: other (3 days ago) Loss of Consciousness: no loss of consciousness Quality: aching Severity of Pain-Max: severe Severity of Pain-Current: moderate Allergies/Adverse Reactions: mushroom Allergy (Severe, Verified 08/28/24 21:54) throat swelling tetracycline [Tetracycline] Allergy (Mild, Verified 08/28/24 21:54) Itching Home Medications: PANTOPRAZOLE 40 mg Tablet [Protonix 40MG Tablet] 40 mg PO HS 03/02/12 [History] Pravastatin Sodium [Pravachol] 40 mg PO DAILY 04/14/19 [History] Azelastine Nasal [Astelin Nasal] 30 ml NS BID 12/06/23 [History] Ergocalciferol (Vitamin D2) [Vitamin D2] 1,250 mcg PO WEEKLY 01/15/24 [History] Hydroxyzine HCl 25 mg [Atarax 25 mg] 25 mg PO DAILY 01/15/24 [History] Meloxicam 15 mg PO DAILY 01/15/24 [History] Potassium Chloride 20 meq PO DAILY 01/15/24 [History] Vilazodone HCl 10 mg PO DAILY 01/15/24 [History] Hx Tetanus, Diphtheria Vaccination/Date Given: Yes Hx Influenza Vaccination/Date Given: No Hx Pneumococcal Vaccination/Date Given: No Travel Risk - International Travel Have you traveled outside of the country in past 3 weeks: No - Emerging Infectious Disease Are you exhibiting symptoms associated with any current EIDs: No - Review of Systems Constitutional: No Symptoms Eyes: No Symptoms Skin: No Symptoms Neurological: No Symptoms - Past Medical History Pertinent Past Medical History: Yes Neurological History: Migraines ENT History: No Pertinent History Cardiac History: Coronary Artery Disease, High Cholesterol, Hypertension Respiratory History: No Pertinent History Endocrine Medical History: Other Musculoskeletal History: Arthritis, Osteoarthritis GI Medical History: GERD, Gallbladder Disease, Other History: No Pertinent History Psycho-Social History: Depression Female Reproductive Disorders: No Pertinent History Other Medical History: Fatty liver - Past Surgical History Past Surgical History: Yes Neuro Surgical History: No Pertinent History Cardiac: No Pertinent History Respiratory: No Pertinent History Gastrointestinal: Cholecystectomy, Exploratory Laparoscopy Genitourinary: No Pertinent History Musculoskeletal: No Pertinent History Female Surgical History: No Pertinent History Other Surgical History: artery biopsy Significant Family History: no pertinent family hx - Social History Smoking Status: Never smoker Exposure to second hand smoke: Yes Drug Use: none Patient Lives Alone: No - Social Determinants of Health Will the patient participate in the screening: Declined to provide - Nursing Vital Signs Nursing Vital Signs: Initial Vital Signs Temperature 97.5 F 08/28/24 21:50 Pulse Rate 78 08/28/24 21:50 Respiratory Rate 22 08/28/24 21:50 Blood Pressure 166/97 08/28/24 21:50 O2 Sat by Pulse Oximetry 94 L 08/28/24 21:50 Pain Scale Pain Intensity 2 - [place] Coma Score Best Eye Response ([place]): (4) open spontaneously Best Verbal Response ([place]): (5) oriented Best Motor Response ([place]): (6) obeys commands [place] Total: 15 - Physical Exam General Appearance: no apparent distress Head Injury: no evidence of injury Back Exam: normal inspection, normal range of motion Extremity Exam: limited range of motion (Left hip), bony point tenderness (Left hip), hip tenderness, pain with movement, No contusions, No deformities, No lacerations, No penetrations, No motor deficit, No pulse deficit, No pedal edema, No sensory deficit Neurologic Exam: alert, oriented x 3, cooperative Skin Exam: normal color, warm SpO2: 94 Ordered Tests: Active Orders 24 hr Category Date Time Status HIP UNI (2V) INCL PEL IF DONE Stat Exams 08/28/24 22:13 Taken PELVIS WITHOUT CONTRAST [CT] Stat Exams 08/28/24 23:12 Completed Medication Summary Discontinued Medications Generic Name Dose Route Start Last Admin Trade Name Janes PRN Reason Stop Dose Admin Hydrocodone Bitart/Acetaminophen 2 tab 08/28/24 22:14 08/28/24 22:21 Hydrocodone/Apap 5/325 1 Tab Tablet PO 08/28/24 22:15 2 tab STAT ONE Administration Hydrocodone Bitart/Acetaminophen Confirm 08/28/24 22:19 Hydrocodone/Apap 5/325 1 Tab Tablet Administered 08/28/24 22:20 Dose 2 tab .ROUTE .STK-MED ONE Hydromorphone HCl 1 mg 08/29/24 00:03 08/29/24 00:05 Hydromorphone 1 Mg/1ml Inj IM 08/29/24 00:04 Not Given STAT ONE Lab/Rad Data: I got a x-ray of her hip. It was negative. I went ahead and got a CT just to make sure there is nothing in the hip pelvis or lumbar spine. I am going to let her go home. The CT was negative. I think is just a hip strain - Progress Progress: improved Progress Note: On the differential is hip fracture, pelvic fracture, lumbar compression fracture, hip strain hip contusion. I got a x-ray of the left hip. There was no pelvis included so I just went ahead and got a CT of the pelvis and hips. The x-ray was interpreted by me. I did not see anything Abnormal on it. I am going to go ahead and get a CTBecause the patient is having quite a bit of pain and do not want to miss anything. CT was negative. I think she is just having hip strain. 08/29/24 01:19 Medical Desision Making - Diagnostic Testing Diagnostic test were ordered, analyzed, and reviewed by me: Yes Radiological Interpretation: Interpreted by me - Risk of complications Minimal Risk: Minimal risk of morbidity - Departure Departure Disposition: Home Clinical Impression: Contusion of left hip and thigh Condition: Stable Critical Care Time: No Referrals: SARAY COMBS NP [Primary Care Provider] - Follow up/PCP as directed Instructions: Lower Extremity Muscle Strain
[2024-08-29] MEDS: Hydromorphone 1 mg/ml Injection IM ONE (00:05)
--- NOTE | 2024-08-29 00:35 | XRAY ---
CLINICAL HISTORY: trauma COMPARISON: No previous studies are available for comparison. TECHNIQUE: CT scan of the pelvis was performed without the administration of intravenous contrast. Contiguous axial images were obtained from the iliac crests to the pubic symphysis. Coronal and sagittal reformatted images were also reviewed. One of the following dose reduction techniques was utilized for this exam. Automated exposure control, adjustment of the mA and/or kV according to patient size, and use of iterative reconstruction. FINDINGS: Pelvic Bones: The pelvic bones are intact without evidence of fracture or destructive lesions. Mild greater and lesser trochanteric enthesopathy on both sides. Mild bilateral hip osteoarthrosis. Pelvic viscera: The urinary bladder is adequately distended and appears normal. Uterus and adnexa appear unremarkable. Rectum and Colon: Uncomplicated colonic diverticulosis. Pelvic Soft Tissues: The pelvic soft tissues are unremarkable without evidence of mass or abnormal fluid collection. Additional Findings: No free fluid or lymphadenopathy identified in the pelvis. The visualized lower lumbar spine shows degenerative changes with vacuum phenomena and posterior disc osteophyte complex at L5-S1 level. IMPRESSION: 1. No evidence of fracture in pelvis 2. Mild greater and lesser trochanteric enthesopathy on both sides. 3. Mild bilateral hip osteoarthrosis. Electronically Signed by: Ankur Persaud MD. (08/29/2024 00:31:20 EST)
[2024-08-29 01:07] VITALS: BP 139/73; PULSE 72; RESP 18
[2024-08-29 01:23] VITALS: O2SAT 94
--- NOTE | 2024-08-29 08:33 | XRAY ---
Indication: Pain following trauma. Comparison: None 2 view left hip demonstrates osteopenia and tiny spurring greater trochanter. No other bony, articular, or soft tissue abnormalities.
== END 2024-08-29 01:31 | disposition home or self-care (01) ==
LOC: ED 21:45
DX: S70.02XA Contusion of left hip, initial encounter (principal); S70.12XA Contusion of left thigh, initial encounter; M25.552 Pain in left hip; W07.XXXA Fall from chair, initial encounter
CPT/HCPCS: 72192; 73502; 99283; 99284; A9270-GY